=== PATIENT | male | born 1940 | race Hispanic/Latino ===

== ENCOUNTER 2018-06-26 14:38 | Emergency (ER) | payer MEDICARE, OTHER ==
[2012-01-12 12:36] VITALS: BP 181/89
[2018-06-26] MEDS ORDERED: ONDANSETRON 4 MG/2 ML VIAL ONE (16:37)
[2018-06-26] MEDS ORDERED: FENTANYL CITR 100 MCG/2 ML ONE (16:37)
[2018-06-26 16:52] LABS: Absolute Lymphocytes (CBC) 1.4 K/uL (0.7-4.9); Absolute Monocytes 0.8 K/uL (0.1-1.3); Basophils % 0.5 % (0-1.3); Eosinophils % 1.8 % (0-4.4); Hematocrit 45.2 % (39.6-49.0); Lymphocytes % 13.7 % (15.3-44.8); MPV 10.4 fL (7.6-11.3); Monocytes % 7.8 % (3.3-12.3); RBC Red Blood Cell Count 4.82 M/uL (4.33-5.43)
[2018-06-26 17:23] LABS: Blood Morphology Comment NOT SEEN (NOT SEEN); Platelet Estimate ADEQ; Urine White Blood Cell Casts OK
[2018-06-26 18:21] LABS: C-Reactive Protein 6.75 mg/L (<3.00); Magnesium 2.3 mg/dL (1.8-2.4); Potassium 3.5 mmol/L (3.5-5.1)
--- NOTE | 2018-06-26 18:54 | RAD REPORT ---
EXAM DESCRIPTION: CT - CTFBWCON CLINICAL HISTORY: right lower jaw pain COMPARISON: Head Brain Wo Cont dated 06/06/2016; Head Brain Wo Cont dated 01/07/2016 TECHNIQUE: Axial 2 mm thick images of the face were obtained with sagittal and coronal reconstructio n images. All CT scans are performed using dose optimization technique as appropriate and may include automated exposure control or mA/KV adjustment according to patient size. FINDINGS: No acute facial bone fracture is seen.The mandible is intact. The globes and orbital contents are grossly unremarkable.The paranasal sinuses and mastoids are clear . Atherosclerosis of both carotid bulbs noted. No pathologic post-contrast enhancement detected. IMPRESSION: Acute process is not identified.
[2018-06-26] MEDS ORDERED: KETOROLAC 30 MG/ML INJ ONE (19:00)
[2018-06-26] MEDS ORDERED: TRAMADOL HCL 50 MG TAB ONE (19:22)
[2018-06-26] MEDS ORDERED: CARBAMAZEPINE 200 MG TAB ONE (19:32)
--- NOTE | 2018-06-26 19:44 | ER ---
Nurse's Notes [facility] Name: Frank Loo Age: 77 yrs Sex: Male : 1940 Arrival Date: 06/26/2018 Time: 14:42 Bed 23 Private MD: Diagnosis: Trigeminal neuralgia-Right Presentation: 06/26 14:59 Presenting complaint: Patient states: cultural link: Nepalese: i have pain on my R chin, hj R side of my face area; it started 3 days ago; denies discharges on the R ear; denies fever and chills; pain is 10/10; hx of trigeminal neuralgia;. Transition of care: patient was not received from another setting of care. Onset of symptoms was June 26, 2018. Risk Assessment: Do you want to hurt yourself or someone else? Patient reports no desire to harm self or others. Initial Sepsis Screen: Does the patient meet any 2 criteria? No. Patient's initial sepsis screen is negative. Does the patient have a suspected source of infection? No. Patient's initial sepsis screen is negative. Care prior to arrival: None. 14:59 Method Of Arrival: Ambulatory 14:59 Acuity: ANISH 4 hj Triage Assessment: 15:04 General: Appears in no apparent distress. uncomfortable, Behavior is calm, cooperative, hj appropriate for age. Pain: Complains of pain in right cheek and right jaw. Historical: - Allergies: 15:03 No Known Allergies; hj - Home Meds: 15:51 allopurinol 100 mg Oral tab 1 tab once daily [Active]; clopidogrel 75 mg Oral tab 1 tab tw2 once daily [Active]; tamsulosin 0.4 mg Oral cp24 1 cap once daily [Active]; losartan 50 mg Oral tab 1 tab 2 times per day [Active]; - PMHx: 15:03 Arthritis; Hypertension; hj - PSHx: 15:03 Unable to obtain; hj - Immunization history:: Adult Immunizations not up to date. - Social history:: Smoking status: Patient/guardian denies using tobacco, Patient/guardian denies using alcohol. - Ebola Screening: : Patient negative for fever greater than or equal to 101.5 degrees Fahrenheit, and additional compatible Ebola Virus Disease symptoms Patient denies exposure to infectious person Patient denies travel to an Ebola-affected area in the 21 days before illness onset. Screenin:04 Abuse screen: Denies threats or abuse. Denies injuries from another. Nutritional hj screening: No deficits noted. Tuberculosis screening: No symptoms or risk factors identified. Fall Risk Assessment: 15:53 Reassessment: pt reports having right ear pain and jaw pain, was diagnosed with tw2 trigeminal neuralgia from his dentist, he says the pain is getting worse. General: Appears in no apparent distress. well groomed, Behavior is calm, cooperative, appropriate for age. Pain: Complains of pain in face and right jaw and right cheek. Neuro: Level of Consciousness is awake, alert, obeys commands, Oriented to person, place, time, situation. Cardiovascular: Denies chest pain, shortness of breath, Capillary refill < 3 seconds Patient's skin is warm and dry. Respiratory: Airway is patent Respiratory effort is even, unlabored, Respiratory pattern is regular, symmetrical. GI: No signs and/or symptoms were reported involving the gastrointestinal system. : No signs and/or symptoms were reported regarding the genitourinary system. EENT: Reports pain in right cheek, right ear and right jaw. Derm: No signs and/or symptoms reported regarding the dermatologic system. Musculoskeletal: Range of motion: intact in all extremities. 16:21 Reassessment: Patient appears in no apparent distress at this time. No changes from tw2 previously documented assessment. Patient and/or family updated on plan of care and expected duration. Pain level reassessed. Patient is alert, oriented x 3, equal unlabored respirations, skin warm/dry/pink. provider at bedside at this time. 17:24 Reassessment: Patient appears in no apparent distress at this time. No changes from tw2 previously documented assessment. Patient and/or family updated on plan of care and expected duration. Pain level reassessed. Patient is alert, oriented x 3, equal unlabored respirations, skin warm/dry/pink. 18:08 Reassessment: Patient appears in no apparent distress at this time. Patient and/or tw2 family updated on plan of care and expected duration. Pain level reassessed. Patient is alert, oriented x 3, equal unlabored respirations, skin warm/dry/pink. Patient states feeling better. 18:45 Reassessment: Patient appears in no apparent distress at this time. No changes from tw2 previously documented assessment. Patient and/or family updated on plan of care and expected duration. Pain level reassessed. Patient is alert, oriented x 3, equal unlabored respirations, skin warm/dry/pink. pt states the pain is back, provider notified. 19:00 General: Appears in no apparent distress. Behavior is calm, cooperative, appropriate ea for age. Pain: Complains of pain in right ear and right jaw and right cheek. Neuro: Level of Consciousness is awake, alert, obeys commands, Oriented to person, place, time, situation. Cardiovascular: Patient's skin is warm and dry. Respiratory: Airway is patent Respiratory effort is even, unlabored, Respiratory pattern is regular, symmetrical. GI: No signs and/or symptoms were reported involving the gastrointestinal system. : No signs and/or symptoms were reported regarding the genitourinary system. Derm: No signs and/or symptoms reported regarding the dermatologic system. Musculoskeletal: Circulation, motion, and sensation intact. 20:00 Reassessment: Patient and/or family updated on plan of care and expected duration. Pain ea level reassessed. Patient is alert, oriented x 3, equal unlabored respirations, skin warm/dry/pink. Discharge instructions given to patient, verbalized the understanding of instruction Patient states symptoms have improved. Vital Signs: 15:04 BP 142 / 75; Pulse 66; Resp 18; Temp 100.6(O); Pulse Ox 98% on R/A; Weight 65.77 kg; hj Height 5 ft. 7 in. (170.18 cm); Pain 10/10; 15:54 BP 159 / 77; Pulse 55; Resp 16; Pulse Ox 99% on R/A; Pain 10/10; tw2 16:21 Temp 99(O); tw2 16:21 BP 133 / 68; Pulse 65; Resp 17; Pulse Ox 99% on R/A; Pain 7/10; tw2 17:23 BP 150 / 61; Pulse 57; Resp 17; Pulse Ox 97% on R/A; tw2 17:24 Pain 6/10; tw2 18:08 BP 153 / 68; Pulse 50; Resp 17; Pulse Ox 99% on R/A; tw2 18:43 BP 154 / 67; Pulse 54; Resp 17; Pulse Ox 98% on R/A; tw2 19:30 BP 156 / 70; Pulse 58; Resp 18; Temp 98.0; Pulse Ox 99% on R/A; ea 15:04 Body Mass Index 22.71 (65.77 kg, 170.18 cm) hj ED Course: 14:42 Patient arrived in ED. mr 15:03 Triage completed. hj 15:04 Arm band placed on right wrist. hj 15:04 Patient has correct armband on for positive identification. Placed in gown. Bed in low hj position. Call light in reach. Adult w/ patient. 15:50 Nakita Samuel RN is Primary Nurse. tw2 16:14 Jacob Wilkins PA is PHCP. cp 16:14 Rodriguez Marks MD is Attending Physician. cp 16:35 Inserted saline lock: 22 gauge in right antecubital area, using aseptic technique. tw2 Blood collected. 17:25 Radiology exam delayed due to lab results not completed at this time. (BUN/Creatinine). nj 17:25 Radiology exam delayed due to lab results not completed at this time. (BUN/Creatinine). nj 18:33 CT completed. Patient tolerated procedure well. Patient moved to CT. Patient moved back kc3 from CT. 18:34 CT Facial Bones W/ Con \T\ Mpr In Process Unspecified. EDMS 18:58 Report given to PEMA Leung. tw2 18:59 Primary Nurse role handed off by Nakita Samuel RN tw2 19:09 Xochitl Bocanegra RN is Primary Nurse. ea 19:43 Piotr Huerta MD is Referral Physician. cp 20:15 No provider procedures requiring assistance completed. IV discontinued, intact, ea bleeding controlled, No redness/swelling at site. Pressure dressing applied. Administered Medications: 16:40 Drug: Zofran 4 mg Route: IVP; Site: right antecubital; tw2 17:24 Follow up: Response: No adverse reaction tw2 16:42 Drug: fentaNYL (PF) 25 mcg Route: IVP; Site: right antecubital; tw2 17:24 Follow up: Pain 6/10 Adult; Response: No adverse reaction; Pain is decreased tw2 18:52 Drug: TORadol 30 mg Route: IVP; Site: right antecubital; tw2 19:00 Follow up: Response: No adverse reaction; Pain is decreased ea 19:18 Drug: UltRAM 50 mg Route: PO; ea 20:17 Follow up: Response: No adverse reaction; Pain is decreased ea 19:26 Drug: TEGretol 100 mg Route: PO; tl3 20:18 Follow up: Response: No adverse reaction; Pain is decreased ea Outcome: 19:44 Discharge ordered by . cp 20:15 Discharged to home ambulatory, with significant other. ea 20:15 Condition: improved 20:15 Discharge instructions given to patient, Instructed on discharge instructions, follow up and referral plans. medication usage, Demonstrated understanding of instructions, follow-up care, medications, Prescriptions given X 2. 20:18 Patient left the ED. ea Signatures: Dispatcher [employer] EDGA Desirae HigginsHay RN RN Jacob Pino PA PA cp Wise, Tara RN RN tw2 Emmett Avila Elena, RN RN Christina Hargrove3 Renetta Li RN RN tl3 Corrections: (The following items were deleted from the chart) 15:07 15:04 Pulse 66bpm; Resp 18bpm; Pulse Ox 98% RA; Temp 100.6F Oral; 65.77 kg; Height 5 hj ft. 7 in.; BMI: 22.7; Pain 10/10; hj 18:44 16:21 BP 133 / 68; Pulse 65bpm; Resp 17bpm; Pulse Ox 99% RA; tw2 tw2 18:45 18:43 Pulse 54bpm; Resp 17bpm; Pulse Ox 98% RA; tw2 tw2 18:47 18:45 Reassessment: Patient appears in no apparent distress at this time. No changes tw2 from previously documented assessment. Patient and/or family updated on plan of care and expected duration. Pain level reassessed. Patient states feeling better. tw2
--- NOTE | 2018-06-26 19:45 | EDPHYS ---
Physician Documentation [facility] Name: Frank Loo Age: 77 yrs Sex: Male : 1940 Arrival Date: 06/26/2018 Time: 14:42 Bed 23 Private MD: ED Physician Rodriguez Marks HPI: 06/26 16:35 This 77 yrs old Male presents to ER via Ambulatory with complaints of facial cp pain, Ear Pain. 16:35 The patient presents with pain. The problem is located in the right ear and right jaw. cp 16:35 Onset: The symptoms/episode began/occurred 3 day(s) ago. Duration: The symptoms are cp intermittent, with episodes lasting minutes at a time, with no pattern. Modifying factors: the symptoms are aggravated by nothing. Associated signs and symptoms: Pertinent negatives: anorexia, dysphagia, fever, inability to eat, redness in area, swelling, vomiting. Severity of symptoms: in the emergency department the symptoms are unchanged, despite home interventions. The patient has not experienced similar symptoms in the past. The patient has been recently seen by a physician: Dr. Adler maxillary/facial surgeon, in the office, yesterday, with similar presenting complaints, and apparently given a diagnosis of trigeminal neuralgia. Historical: - Allergies: 15:03 No Known Allergies; hj - Home Meds: 15:51 allopurinol 100 mg Oral tab 1 tab once daily [Active]; clopidogrel 75 mg Oral tab 1 tab tw2 once daily [Active]; tamsulosin 0.4 mg Oral cp24 1 cap once daily [Active]; losartan 50 mg Oral tab 1 tab 2 times per day [Active]; - PMHx: 15:03 Arthritis; Hypertension; hj - PSHx: 15:03 Unable to obtain; hj - Immunization history:: Adult Immunizations not up to date. - Social history:: Smoking status: Patient/guardian denies using tobacco, Patient/guardian denies using alcohol. - Ebola Screening: : Patient negative for fever greater than or equal to 101.5 degrees Fahrenheit, and additional compatible Ebola Virus Disease symptoms Patient denies exposure to infectious person Patient denies travel to an Ebola-affected area in the 21 days before illness onset. ROS: 16:40 Constitutional: Negative for fever, poor PO intake. cp 16:40 Eyes: Negative for injury, pain, redness, and discharge. cp 16:40 ENT: Positive for ear pain, right lower jaw pain, Negative for drainage from ear(s), sinus congestion, sinus pain, sore throat, dental pain, difficulty swallowing, difficulty handling secretions. 16:40 Neck: Negative for pain with movement, pain at rest, stiffness, bony tenderness. 16:40 Cardiovascular: Negative for chest pain, edema, palpitations. 16:40 Respiratory: Negative for cough, shortness of breath, wheezing. 16:40 Abdomen/GI: Negative for abdominal pain, nausea, vomiting, and diarrhea, black/tarry stool, rectal bleeding. 16:40 Skin: Negative for cellulitis, rash. 16:40 Neuro: Negative for altered mental status, dizziness, headache, syncope, weakness. 16:40 All other systems are negative. Exam: 16:45 Constitutional: The patient appears in no acute distress, alert, awake, cp non-diaphoretic, non-toxic, well developed, well nourished. 16:45 Eyes: Pupils equal round and reactive to light, extra-ocular motions intact. Lids and cp lashes normal. Conjunctiva and sclera are non-icteric and not injected. Cornea within normal limits. Periorbital areas with no swelling, redness, or edema. 16:45 Head/face: Noted is swelling, that is mild, of the right jaw, tenderness, that is moderate, of the right jaw, Sinus tenderness, is not appreciated. 16:45 ENT: External ear(s): are unremarkable, Ear canal(s): are normal, clear, TM's: bulging, is not appreciated, bilaterally, dullness, bilaterally, erythema, is not appreciated, bilaterally, Nose: is normal, Mouth: Lips: moist, Oral mucosa: pink and intact, moist, Posterior pharynx: Airway: no evidence of obstruction, patent, Tonsils: are normal in appearance, Uvula: midline, swelling, is not appreciated, erythema, is not appreciated, exudate, is not appreciated, Dental exam: abscess, is not appreciated, the patient wears dentures, in place, gum swelling, not appreciated, Voice: is normal. 16:45 Neck: ROM/movement: is normal, is supple, without pain, no range of motions limitations, no meningismus, no nuchal rigidity, Lymph nodes: no appreciated lymphadenopathy. 16:45 Chest/axilla: Inspection: normal, Palpation: is normal, no crepitus, no tenderness. 16:45 Cardiovascular: Rate: normal, Rhythm: regular. 16:45 Respiratory: the patient does not display signs of respiratory distress, Respirations: normal, no use of accessory muscles, no retractions, no splinting, no tachypnea. 16:45 Abdomen/GI: Exam negative for discomfort, distension, guarding, Inspection: abdomen appears normal. 16:45 Skin: cellulitis, is not appreciated, no rash present. 16:45 Neuro: Orientation: to person, place \T\ time. Mentation: is normal, Cerebellar function: is grossly normal, Motor: moves all fours, strength is normal, Sensation: is normal. Vital Signs: 15:04 BP 142 / 75; Pulse 66; Resp 18; Temp 100.6(O); Pulse Ox 98% on R/A; Weight 65.77 kg; hj Height 5 ft. 7 in. (170.18 cm); Pain 10/10; 15:54 BP 159 / 77; Pulse 55; Resp 16; Pulse Ox 99% on R/A; Pain 10/10; tw2 16:21 Temp 99(O); tw2 16:21 BP 133 / 68; Pulse 65; Resp 17; Pulse Ox 99% on R/A; Pain 7/10; tw2 17:23 BP 150 / 61; Pulse 57; Resp 17; Pulse Ox 97% on R/A; tw2 17:24 Pain 6/10; tw2 18:08 BP 153 / 68; Pulse 50; Resp 17; Pulse Ox 99% on R/A; tw2 18:43 BP 154 / 67; Pulse 54; Resp 17; Pulse Ox 98% on R/A; tw2 19:30 BP 156 / 70; Pulse 58; Resp 18; Temp 98.0; Pulse Ox 99% on R/A; ea 15:04 Body Mass Index 22.71 (65.77 kg, 170.18 cm) hj MDM: 16:14 Patient medically screened. cp 19:42 Data reviewed: vital signs, nurses notes, lab test result(s), radiologic studies, CT cp scan, I have discussed the patient's presentation/case with the attending Emergency Department Physician; and as a result, I will discharge patient. 06/26 16:26 Order name: CBC with Diff; Complete Time: 17:30 cp 06/26 17:30 Interpretation: Normal except: JOHNNA% 76.2; LYM% 13.7. cp 06/26 16:26 Order name: BMP; Complete Time: 18:22 cp 06/26 18:22 Interpretation: Normal except: GLUC 110; GFR 75. cp 06/26 16:26 Order name: CRP; Complete Time: 18:22 cp 06/26 16:26 Order name: ESR; Complete Time: 17:30 cp 06/26 17:30 Interpretation: Abnormal: SED 30. cp 06/26 16:26 Order name: Magnesium; Complete Time: 18:22 cp 06/26 17:09 Order name: CBC Smear Scan; Complete Time: 17:30 EDMS 06/26 16:26 Order name: IV; Complete Time: 17:23 cp 06/26 16:27 Order name: CT Facial Bones W/ Con \T\ Mpr; Complete Time: 19:02 cp Administered Medications: 16:40 Drug: Zofran 4 mg Route: IVP; Site: right antecubital; tw2 17:24 Follow up: Response: No adverse reaction tw2 16:42 Drug: fentaNYL (PF) 25 mcg Route: IVP; Site: right antecubital; tw2 17:24 Follow up: Pain 6/10 Adult; Response: No adverse reaction; Pain is decreased tw2 18:52 Drug: TORadol 30 mg Route: IVP; Site: right antecubital; tw2 19:00 Follow up: Response: No adverse reaction; Pain is decreased ea 19:18 Drug: UltRAM 50 mg Route: PO; ea 20:17 Follow up: Response: No adverse reaction; Pain is decreased ea 19:26 Drug: TEGretol 100 mg Route: PO; tl3 20:18 Follow up: Response: No adverse reaction; Pain is decreased ea Disposition: 06/26/18 19:44 Discharged to Home. Impression: Trigeminal neuralgia - Right. - Condition is Stable. - Discharge Instructions: Neuropathic Pain, Trigeminal Neuralgia. - Prescriptions for carbamazepine 100 mg Oral tablet extended release 12 hr - take 1 tablet by ORAL route every 12 hours As needed; 30 tablet. Ultram 50 mg Oral Tablet - take 1 tablet by ORAL route every 6 hours As needed no driving while taking medication; 20 tablet. - Medication Reconciliation Form, Thank You Letter, Antibiotic Education, Prescription Opioid Use form. - Follow up: Kenedy, Concepcion, MD; When: 2 - 3 days; Reason: Recheck today's complaints. - Problem is new. - Symptoms have improved. Addendum: 07/09/2018 07:35 Co-signature as Attending Physician, Rodriguez Marks MD I agree with the assessment and k dr plan of care. Signatures: Dispatcher [employer] EDPA Rodriguez Marks MD MD [facility] Hay Fischer RN RN Jacob Wilkins PA PA cp Nakita Samuel RN RN tw2 Xochitl Bocanegra RN RN Renetta Grijalva RN RN tl3 Corrections: (The following items were deleted from the chart) 06/26 20:18 19:44 06/26/2018 19:44 Discharged to Home. Impression: Trigeminal neuralgia - Right. ea Condition is Stable. Forms are Medication Reconciliation Form, Thank You Letter, Antibiotic Education, Prescription Opioid Use. Follow up: Piotr Huerta; When: 2 - 3 days; Reason: Recheck today's complaints. Problem is new. Symptoms have improved. cp
== END 2018-06-26 20:18 | disposition home or self-care (01) ==
LOC: ER 14:38
DX: G50.0 Trigeminal neuralgia (principal); I10 Essential (primary) hypertension
CPT/HCPCS: 36415; 70487; 76377; 80048; 83735; 85025; 85652; 86140; 96374; 96375; 99284; J2405; J3010; Q9967

== ENCOUNTER 2018-06-28 09:24 | Emergency (ER) | payer MEDICARE ==
[2018-06-28] MEDS ORDERED: ONDANSETRON 4 MG/2 ML VIAL ONE (10:20)
[2018-06-28] MEDS ORDERED: MORPHINE 4 MG/ML SYR ONE (10:20)
[2018-06-28] MEDS ORDERED: KETOROLAC 30 MG/ML INJ ONE (10:20)
--- NOTE | 2018-06-28 11:32 | EDPHYS ---
Physician Documentation [facility] Name: Frank Loo Age: 77 yrs Sex: Male : 1940 Arrival Date: 06/28/2018 Time: 09:24 Bed 13 Private MD: ED Physician Jacob Holland HPI: 06/28 10:18 This 77 yrs old Male presents to ER via EMS with complaints of facial. jr8 10:18 Onset: The symptoms/episode began/occurred acutely, 2 day(s) ago. Severity of symptoms: jr8 At their worst the symptoms were moderate in the emergency department the symptoms are unchanged. The patient has experienced a previous episode. The patient has been recently seen at the [facility] Emergency Department. Patient seen two days ago after having facial pain on right side. Patient with history of trigeminal neuralgia in past. Came back today for continuation of pain. Started on Tramadol and Carbamazepine. Historical: - Allergies: : No Known Allergies; hj - Home Meds: : allopurinol 100 mg Oral tab 1 tab once daily [Active]; clopidogrel 75 mg Oral tab 1 tab hj once daily [Active]; losartan 50 mg Oral tab 1 tab 2 times per day [Active]; tamsulosin 0.4 mg Oral cp24 1 cap once daily [Active]; - PMHx: : Arthritis; Hypertension; hj - PSHx: : Unable to obtain; hj - Immunization history:: Adult Immunizations up to date. - Social history:: Smoking status: Patient/guardian denies using tobacco, Patient/guardian denies using alcohol. - Ebola Screening: : Patient negative for fever greater than or equal to 101.5 degrees Fahrenheit, and additional compatible Ebola Virus Disease symptoms Patient denies exposure to infectious person Patient denies travel to an Ebola-affected area in the 21 days before illness onset. ROS: 10:18 Eyes: Negative for injury, pain, redness, and discharge, ENT: Negative for injury, jr8 pain, and discharge, Neck: Negative for injury, pain, and swelling, Cardiovascular: Negative for chest pain, palpitations, and edema, Respiratory: Negative for shortness of breath, cough, wheezing, and pleuritic chest pain, Abdomen/GI: Negative for abdominal pain, nausea, vomiting, diarrhea, and constipation, Back: Negative for injury and pain, MS/Extremity: Negative for injury and deformity, Skin: Negative for injury, rash, and discoloration, Neuro: Negative for headache, weakness, numbness, tingling, and seizure. Exam: 10:18 Head/Face: Normocephalic, atraumatic. Pain with light touch near jaw line Eyes: jr8 Pupils equal round and reactive to light, extra-ocular motions intact. Lids and lashes normal. Conjunctiva and sclera are non-icteric and not injected. Cornea within normal limits. Periorbital areas with no swelling, redness, or edema. ENT: Nares patent. No nasal discharge, no septal abnormalities noted. Tympanic membranes are normal and external auditory canals are clear. Oropharynx with no redness, swelling, or masses, exudates, or evidence of obstruction, uvula midline. Mucous membranes moist. Neck: Trachea midline, no thyromegaly or masses palpated, and no cervical lymphadenopathy. Supple, full range of motion without nuchal rigidity, or vertebral point tenderness. No Meningismus. Cardiovascular: Regular rate and rhythm with a normal S1 and S2. No gallops, murmurs, or rubs. Normal PMI, no JVD. No pulse deficits. Respiratory: Lungs have equal breath sounds bilaterally, clear to auscultation and percussion. No rales, rhonchi or wheezes noted. No increased work of breathing, no retractions or nasal flaring. Abdomen/GI: Soft, non-tender, with normal bowel sounds. No distension or tympany. No guarding or rebound. No evidence of tenderness throughout. Back: No spinal tenderness. No costovertebral tenderness. Full range of motion. Skin: Warm, dry with normal turgor. Normal color with no rashes, no lesions, and no evidence of cellulitis. MS/ Extremity: Pulses equal, no cyanosis. Neurovascular intact. Full, normal range of motion. Neuro: Awake and alert, GCS 15, oriented to person, place, time, and situation. Cranial nerves II-XII grossly intact. Motor strength 5/5 in all extremities. Sensory grossly intact. Cerebellar exam normal. Normal gait. Vital Signs: 09:29 BP 183 / 77; Pulse 59; Resp 18; Temp 98.1; Pulse Ox 100% on R/A; Weight 29.83 kg; hj Height 5 ft. 7 in. (170.18 cm); Pain 10/10; 10:47 BP 169 / 67; Pulse 60; Resp 18; Pulse Ox 100% on R/A; hj 11:48 BP 165 / 90; Pulse 62; Resp 18; Pulse Ox 100% on R/A; hj 09:29 Body Mass Index 10.30 (29.83 kg, 170.18 cm) hj MDM: 09:28 Patient medically screened. jr8 10:18 Data reviewed: vital signs, nurses notes, old medical records, CT face and labs done 48 jr8 hours ago with no acute finding and as a result, I will discharge patient. Data interpreted: Pulse oximetry: on room air is 100 %. Interpretation: normal. Counseling: I had a detailed discussion with the patient and/or guardian regarding: the historical points, exam findings, and any diagnostic results supporting the discharge/admit diagnosis, the need for outpatient follow up, a neurologist, to return to the emergency department if symptoms worsen or persist or if there are any questions or concerns that arise at home. 11:30 Differential Diagnosis Trigeminal Neuralgia, dental infection, Otitis media, shingles, jr8 Temporal mandibular joint syndrome, Temporal arteritis. Response to treatment: the patient's symptoms have mildly improved after treatment. 06/28 10:02 Order name: IV; Complete Time: 10:37 jr8 Administered Medications: 10:36 Drug: Zofran 4 mg Route: IVP; Site: left hand; hj 11:41 Follow up: Response: No adverse reaction; Nausea is decreased hj 10:37 Drug: TORadol 30 mg Route: IVP; Site: left hand; hj 11:41 Follow up: Response: No adverse reaction; Pain is decreased hj 10:37 Drug: morphine 4 mg Route: IVP; Site: left antecubital; hj 11:41 Follow up: Response: No adverse reaction; Pain is decreased hj 11:41 Drug: Baclofen 10 mg Route: PO; hj 11:41 Follow up: Response: No adverse reaction; Pain is decreased hj Disposition: 06/29 07:06 Co-signature as Attending Physician, Jacob Holland MD I agree with the assessment and tricia plan of care. Disposition: 06/28/18 11:32 Discharged to Home. Impression: Trigeminal neuralgia. - Condition is Stable. - Discharge Instructions: Neuropathic Pain, Trigeminal Neuralgia. - Prescriptions for Baclofen 10 mg Oral Tablet - take 1 tablet by ORAL route 3 times per day for 3 days then go to 20 mg TID; 40 tablet. Carbamazepine 200 mg Oral Tablet - take 1 tablet by ORAL route every 12 hours for 3 days then two tabs in the AM and on tab in the PM; 60 tablet. - Medication Reconciliation Form, Thank You Letter, Antibiotic Education, Prescription Opioid Use form. - Follow up: Piotr Huerta MD; When: 2 - 3 days; Reason: Recheck today's complaints, Continuance of care, Re-evaluation by your physician. - Problem is new. - Symptoms have improved. Signatures: Jacob Holland MD MD cha Roszak, Josh, PA PA jr8 Hay Fischer RN RN hj Corrections: (The following items were deleted from the chart) 06/28 12:10 11:32 06/28/2018 11:32 Discharged to Home. Impression: Trigeminal neuralgia. Condition hj is Stable. Prescriptions for Baclofen 10 mg Oral Tablet - take 1 tablet by ORAL route 3 times per day for 3 days then go to 20 mg TID; 20 tablet. and Forms are Medication Reconciliation Form, Thank You Letter, Antibiotic Education, Prescription Opioid Use. Follow up: Piotr Huerta; When: 2 - 3 days; Reason: Recheck today's complaints, Continuance of care, Re-evaluation by your physician. Problem is new. Symptoms have improved. jr8
--- NOTE | 2018-06-28 11:32 | ER ---
Nurse's Notes [facility] Name: Frank Loo Age: 77 yrs Sex: Male : 1940 Arrival Date: 06/28/2018 Time: 09:24 Bed 13 Private MD: Diagnosis: Trigeminal neuralgia Presentation: 06/28 09:25 Presenting complaint: Patient states: i was here last Friday for this R side facial hj pain and was Rx with tramadol and carbamazepine, now the pain is till there and its not going away;. Transition of care: patient was not received from another setting of care. Onset of symptoms was June 28, 2018. Risk Assessment: Do you want to hurt yourself or someone else? Patient reports no desire to harm self or others. Initial Sepsis Screen: Does the patient meet any 2 criteria? No. Patient's initial sepsis screen is negative. Does the patient have a suspected source of infection? No. Patient's initial sepsis screen is negative. Care prior to arrival: None. 09:25 Method Of Arrival: EMS: [facility] 09:25 Acuity: ANISH 4 hj Triage Assessment: :28 General: Appears in no apparent distress. uncomfortable, Behavior is calm, cooperative, hj appropriate for age. Pain: Complains of pain in right cheek, right ear, right congregational and right jaw. Historical: - Allergies: : No Known Allergies; hj - Home Meds: : allopurinol 100 mg Oral tab 1 tab once daily [Active]; clopidogrel 75 mg Oral tab 1 tab hj once daily [Active]; losartan 50 mg Oral tab 1 tab 2 times per day [Active]; tamsulosin 0.4 mg Oral cp24 1 cap once daily [Active]; - PMHx: : Arthritis; Hypertension; hj - PSHx: : Unable to obtain; hj - Immunization history:: Adult Immunizations up to date. - Social history:: Smoking status: Patient/guardian denies using tobacco, Patient/guardian denies using alcohol. - Ebola Screening: : Patient negative for fever greater than or equal to 101.5 degrees Fahrenheit, and additional compatible Ebola Virus Disease symptoms Patient denies exposure to infectious person Patient denies travel to an Ebola-affected area in the 21 days before illness onset. Screenin:28 Abuse screen: Denies threats or abuse. Denies injuries from another. Nutritional hj screening: No deficits noted. Tuberculosis screening: No symptoms or risk factors identified. Fall Risk None identified. Assessment: 09:57 Reassessment: see triage for assessment;. hj 11:47 Reassessment: awaiting for network support technician to interpret in georgian;. Reassessment: Patient hj and/or family updated on plan of care and expected duration. Pain level reassessed. Patient is alert, oriented x 3, equal unlabored respirations, skin warm/dry/pink. Patient states feeling better. Patient states symptoms have improved. Vital Signs: 09:29 BP 183 / 77; Pulse 59; Resp 18; Temp 98.1; Pulse Ox 100% on R/A; Weight 29.83 kg; hj Height 5 ft. 7 in. (170.18 cm); Pain 10/10; 10:47 BP 169 / 67; Pulse 60; Resp 18; Pulse Ox 100% on R/A; hj 11:48 BP 165 / 90; Pulse 62; Resp 18; Pulse Ox 100% on R/A; hj 09:29 Body Mass Index 10.30 (29.83 kg, 170.18 cm) ED Course: 09:24 Patient arrived in ED. hj 09:26 Triage completed. hj 09:28 Aiden Kamara PA is PHCP. jr8 09:28 Jacob Holland MD is Attending Physician. jr8 09:28 Arm band placed on left wrist. hj 09:28 Patient has correct armband on for positive identification. Bed in low position. Call hj light in reach. Side rails up X 1. 09:43 Hay Fischer RN is Primary Nurse. hj 10:36 Inserted saline lock: 24 gauge in left hand, using aseptic technique. hj 11:32 Piotr Huerta MD is Referral Physician. jr8 12:09 No provider procedures requiring assistance completed. IV discontinued, intact, hj bleeding controlled, No redness/swelling at site. Pressure dressing applied. Administered Medications: 10:36 Drug: Zofran 4 mg Route: IVP; Site: left hand; hj 11:41 Follow up: Response: No adverse reaction; Nausea is decreased hj 10:37 Drug: TORadol 30 mg Route: IVP; Site: left hand; hj 11:41 Follow up: Response: No adverse reaction; Pain is decreased hj 10:37 Drug: morphine 4 mg Route: IVP; Site: left antecubital; hj 11:41 Follow up: Response: No adverse reaction; Pain is decreased hj 11:41 Drug: Baclofen 10 mg Route: PO; hj 11:41 Follow up: Response: No adverse reaction; Pain is decreased hj Outcome: 11:32 Discharge ordered by MD. alex 12:09 Discharged to home ambulatory, with family. hj 12:09 Condition: stable 12:09 Discharge instructions given to patient, family, Instructed on discharge instructions, follow up and referral plans. medication usage, in georgian with network support technician Duran Demonstrated understanding of instructions, follow-up care, medications, in georgian with sonography technician Duran Prescriptions given X 2. 12:10 Patient left the ED. Signatures: Aiden Kamara PA PA jr8 Hay Fischer, RN RN Corrections: (The following items were deleted from the chart) 09:30 09:29 BP 183 / 77; Pulse 59bpm; Resp 18bpm; Pulse Ox 100% RA; Temp 98.1F; Pain 10/10; hjhj
[2018-06-28] MEDS ORDERED: BACLOFEN 10 MG TAB PO SCH (12:00)
[2018-06-28 12:15] VITALS: TEMP 98.1; O2SAT 100
[2018-06-28 12:18] VITALS: BP 165/90
== END 2018-06-28 12:10 | disposition home or self-care (01) ==
LOC: ER 09:24
DX: G50.0 Trigeminal neuralgia (principal); I10 Essential (primary) hypertension; M19.90 Unspecified osteoarthritis, unspecified site; Z79.899 Other long term (current) drug therapy
CPT/HCPCS: 99284; J2405

== ENCOUNTER 2018-07-31 14:32 | Emergency (ER) | payer MEDICARE ==
--- OUTSIDE RECORDS SUMMARY | 2018-07-31 14:34 | XMS REPORT ---
:1940 [facility] Address [address] [place] [address] Dr. Whitney [address] [place] [id number] Care Team Providers Name Role Phone Unavailable Unavailable Unavailable Problems This patient has no known problems. Allergies, Adverse Reactions, Alerts This patient has no known allergies or adverse reactions. Medications This patient has no known medications.
[2018-07-31] MEDS ORDERED: FENTANYL CITR 100 MCG/2 ML ONE (17:25)
[2018-07-31] MEDS ORDERED: KETOROLAC 30 MG/ML INJ ONE (17:25)
[2018-07-31] MEDS ORDERED: ONDANSETRON 4 MG/2 ML VIAL ONE (17:25)
--- NOTE | 2018-07-31 17:56 | EDPHYS ---
Physician Documentation [facility] Name: Frank Loo Age: 77 yrs Sex: Male : 1940 Arrival Date: 07/31/2018 Time: 14:35 Bed 24 Private MD: None, None ED Physician Rodriguez Marks HPI: 07/31 17:00 This 77 yrs old Male presents to ER via Ambulatory with complaints of Right pm1 sided Facial Pain. 17:00 The patient or guardian reports pain. Patient seen here 4 days ago and 2 days ago for pm1 the same complaint. Was diagnosed with trigeminal neuralgia and has been seen by Dr. Huerta and given a prescription for Lyrica. Patient reports no improvement in pain with Lyrica. Historical: - Allergies: 14:44 No Known Allergies; sv - PMHx: 14:44 Arthritis; Hypertension; sv - PSHx: 14:44 Hernia repair; sv - Immunization history:: Flu vaccine is up to date. - Social history:: Smoking status: Patient uses tobacco products, 3-4 cigarettes per day.. - Ebola Screening: : No symptoms or risks identified at this time. ROS: 17:00 Constitutional: Negative for fever, chills, and weight loss, Eyes: Negative for injury, pm1 pain, redness, and discharge, ENT: Negative for injury, pain, and discharge, Neck: Negative for injury, pain, and swelling, Cardiovascular: Negative for chest pain, palpitations, and edema, Respiratory: Negative for shortness of breath, cough, wheezing, and pleuritic chest pain, Abdomen/GI: Negative for abdominal pain, nausea, vomiting, diarrhea, and constipation, Back: Negative for injury and pain, : Negative for injury, bleeding, discharge, and swelling, MS/Extremity: Negative for injury and deformity, Skin: Negative for injury, rash, and discoloration, Neuro: Negative for headache, weakness, numbness, tingling, and seizure. Exam: 17:00 Constitutional: This is a well developed, well nourished patient who is awake, alert, pm1 and in no acute distress. 17:00 Eyes: Pupils equal round and reactive to light, extra-ocular motions intact. Lids and lashes normal. Conjunctiva and sclera are non-icteric and not injected. Cornea within normal limits. Periorbital areas with no swelling, redness, or edema. ENT: Nares patent. No nasal discharge, no septal abnormalities noted. Tympanic membranes are normal and external auditory canals are clear. Oropharynx with no redness, swelling, or masses, exudates, or evidence of obstruction, uvula midline. Mucous membranes moist. Neck: Trachea midline, no thyromegaly or masses palpated, and no cervical lymphadenopathy. Supple, full range of motion without nuchal rigidity, or vertebral point tenderness. No Meningismus. Chest/axilla: Normal chest wall appearance and motion. Nontender with no deformity. No lesions are appreciated. Cardiovascular: Regular rate and rhythm with a normal S1 and S2. No gallops, murmurs, or rubs. Normal PMI, no JVD. No pulse deficits. Respiratory: Lungs have equal breath sounds bilaterally, clear to auscultation and percussion. No rales, rhonchi or wheezes noted. No increased work of breathing, no retractions or nasal flaring. Abdomen/GI: Soft, non-tender, with normal bowel sounds. No distension or tympany. No guarding or rebound. No evidence of tenderness throughout. Back: No spinal tenderness. No costovertebral tenderness. Full range of motion. Skin: Warm, dry with normal turgor. Normal color with no rashes, no lesions, and no evidence of cellulitis. MS/ Extremity: Pulses equal, no cyanosis. Neurovascular intact. Full, normal range of motion. 17:00 Head/face: Noted is no obvious of injury or deformity except tenderness, that is moderate, of the right cheek. 17:00 Neuro: Orientation: is normal, Motor: is normal, moves all fours, Gait: is steady, at a normal pace, without difficulty. Vital Signs: 14:44 BP 152 / 82; Pulse 69; Resp 20; Temp 98.7; Pulse Ox 99% ; Weight 68.04 kg; sv 16:30 BP 161 / 79; Pulse 59; Resp 18; Pulse Ox 99% on R/A; ca1 17:30 BP 165 / 76; Pulse 60; Resp 18; Pulse Ox 100% on R/A; ca1 18:09 BP 152 / 84; Pulse 62; Resp 18; Pulse Ox 100% on R/A; ca1 MDM: 16:44 Patient medically screened. pm1 17:55 Data reviewed: vital signs. Data interpreted: Pulse oximetry: on room air is 100 %. pm1 Interpretation: normal. Counseling: I had a detailed discussion with the patient and/or guardian regarding: the historical points, exam findings, and any diagnostic results supporting the discharge/admit diagnosis, the need for outpatient follow up, for definitive care, a neurologist, a neurosurgeon, to return to the emergency department if symptoms worsen or persist or if there are any questions or concerns that arise at home. 07/31 16:54 Order name: IV Saline Lock; Complete Time: 17:03 pm1 Administered Medications: 07:15 Drug: TORadol 15 mg Route: IVP; Site: left antecubital; ca1 17:49 Follow up: Response: No adverse reaction; Pain is unchanged, physician notified ca1 17:05 Drug: Zofran 4 mg Route: IVP; Site: left antecubital; ca1 17:47 Follow up: Response: No adverse reaction; Nausea is decreased ca1 17:09 Drug: fentaNYL (PF) 25 mcg Route: IVP; Site: left antecubital; ca1 17:48 Follow up: Response: No adverse reaction; Pain is unchanged, physician notified ca1 17:49 Drug: fentaNYL (PF) 50 mcg Route: IVP; Site: left antecubital; ca1 18:09 Follow up: Response: No adverse reaction; Pain is decreased ca1 Disposition: 07/31/18 17:55 Discharged to Home. Impression: Trigeminal neuralgia. - Condition is Stable. - Discharge Instructions: Trigeminal Neuralgia. - Prescriptions for Tylenol- Codeine #3 300-30 mg Oral Tablet - take 2 tablets by ORAL route every 6 hours As needed; 20 tablet. - Medication Reconciliation Form, Thank You Letter, Antibiotic Education, Prescription Opioid Use form. - Follow up: Emergency Department; When: As needed; Reason: Worsening of condition. Follow up: Private Physician; When: 2 - 3 days; Reason: Recheck today's complaints, Continuance of care, Re-evaluation by your physician. - Problem is new. - Symptoms have improved. Addendum: 08/03/2018 07:46 Co-signature as Attending Physician, Rodriguez Marks MD I agree with the assessment and k dr plan of care. Signatures: Sarah Ramos RN RN Rodriguez Ayala MD MD kdr Marinas, Patrick, NP RN HEMODIALYSIS CHARGE pm1 Caroline Fernando, RN RN ca1 Corrections: (The following items were deleted from the chart) 07/31 18:12 17:55 07/31/2018 17:55 Discharged to Home. Impression: Trigeminal neuralgia. Condition ca1 is Stable. Forms are Medication Reconciliation Form, Thank You Letter, Antibiotic Education, Prescription Opioid Use. Follow up: Emergency Department; When: As needed; Reason: Worsening of condition. Follow up: Private Physician; When: 2 - 3 days; Reason: Recheck today's complaints, Continuance of care, Re-evaluation by your physician. Problem is new. Symptoms have improved. pm1
--- NOTE | 2018-07-31 17:56 | ER ---
Nurse's Notes [facility] Name: Frank Loo Age: 77 yrs Sex: Male : 1940 Arrival Date: 07/31/2018 Time: 14:35 Bed 24 Private MD: None, None Diagnosis: Trigeminal neuralgia Presentation: 07/31 14:41 Presenting complaint: Patient states: right jaw pain/"feels like electricity being shot sv through my jaw" for a long time, has been seen here in the ER and prescribed Lyrica. Pt has seen the neurologist who prescribed the Lyrica, and needs to have surgery (burn the nerve). Transition of care: patient was not received from another setting of care. Onset of symptoms is unknown. Care prior to arrival: None. 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 sv 16:45 Risk Assessment: Do you want to hurt yourself or someone else? Patient reports no ca1 desire to harm self or others. Initial Sepsis Screen: Does the patient meet any 2 criteria? No. Patient's initial sepsis screen is negative. Does the patient have a suspected source of infection? No. Patient's initial sepsis screen is negative. Triage Assessment: 14:46 General: Appears in no apparent distress. uncomfortable, Behavior is cooperative, sv appropriate for age. Pain: Complains of pain in right cheek and right mandible Pain currently is 10 out of 10 on a pain scale. Neuro: Level of Consciousness is awake, alert, obeys commands, Oriented to person, place, time, situation, Gait is steady. Respiratory: Respiratory effort is even, unlabored, Respiratory pattern is regular, symmetrical. Historical: - Allergies: 14:44 No Known Allergies; sv - PMHx: 14:44 Arthritis; Hypertension; sv - PSHx: 14:44 Hernia repair; sv - Immunization history:: Flu vaccine is up to date. - Social history:: Smoking status: Patient uses tobacco products, 3-4 cigarettes per day.. - Ebola Screening: : No symptoms or risks identified at this time. Screenin:45 Abuse screen: Denies threats or abuse. Denies injuries from another. Nutritional ca1 screening: No deficits noted. Tuberculosis screening: Fall Risk None identified. Assessment: 16:45 General: Appears in no apparent distress. uncomfortable, Behavior is calm, cooperative, ca1 appropriate for age. Pain: Complains of pain in face and right mandible and right cheek Pain currently is 10 out of 10 on a pain scale. Neuro: Level of Consciousness is awake, alert, obeys commands, Oriented to person, place, time, situation. Neuro:. Cardiovascular: Heart tones S1 S2 present Capillary refill < 3 seconds Patient's skin is warm and dry. Respiratory: Airway is patent Respiratory effort is even, unlabored, Respiratory pattern is regular, symmetrical, Breath sounds are clear bilaterally. GI: No signs and/or symptoms were reported involving the gastrointestinal system. : No signs and/or symptoms were reported regarding the genitourinary system. EENT: No signs and/or symptoms were reported regarding the EENT system. Derm: Skin is intact, Skin is pink, warm \\T\\ dry. Musculoskeletal: Circulation, motion, and sensation intact. 17:41 Reassessment: Patient appears in no apparent distress at this time. Patient and/or ca1 family updated on plan of care and expected duration. Pain level reassessed. Patient is alert, oriented x 3, equal unlabored respirations, skin warm/dry/pink. 18:09 Reassessment: Patient appears in no apparent distress at this time. Patient is alert, ca1 oriented x 3, equal unlabored respirations, skin warm/dry/pink. Patient states feeling better. Vital Signs: 14:44 BP 152 / 82; Pulse 69; Resp 20; Temp 98.7; Pulse Ox 99% ; Weight 68.04 kg; sv 16:30 BP 161 / 79; Pulse 59; Resp 18; Pulse Ox 99% on R/A; ca1 17:30 BP 165 / 76; Pulse 60; Resp 18; Pulse Ox 100% on R/A; ca1 18:09 BP 152 / 84; Pulse 62; Resp 18; Pulse Ox 100% on R/A; ca1 ED Course: 14:35 Patient arrived in ED. sb2 14:35 None, None is Private Physician. sb2 14:43 Triage completed. sv 14:45 Arm band placed on Patient placed in waiting room, Patient notified of wait time. sv 16:44 Samson Moreno NP is PHCP. pm1 16:44 Rodriguez Marks MD is Attending Physician. pm1 16:45 Patient has correct armband on for positive identification. Placed in gown. Bed in low ca1 position. Call light in reach. Side rails up X 1. Pulse ox on. NIBP on. Warm blanket given. 17:03 Caroline Fernando RN is Primary Nurse. ca1 17:11 Inserted saline lock: 22 gauge in left antecubital area, using aseptic technique. lt1 18:10 No provider procedures requiring assistance completed. IV discontinued, intact, ca1 bleeding controlled, No redness/swelling at site. Pressure dressing applied. Administered Medications: 07:15 Drug: TORadol 15 mg Route: IVP; Site: left antecubital; ca1 17:49 Follow up: Response: No adverse reaction; Pain is unchanged, physician notified ca1 17:05 Drug: Zofran 4 mg Route: IVP; Site: left antecubital; ca1 17:47 Follow up: Response: No adverse reaction; Nausea is decreased ca1 17:09 Drug: fentaNYL (PF) 25 mcg Route: IVP; Site: left antecubital; ca1 17:48 Follow up: Response: No adverse reaction; Pain is unchanged, physician notified ca1 17:49 Drug: fentaNYL (PF) 50 mcg Route: IVP; Site: left antecubital; ca1 18:09 Follow up: Response: No adverse reaction; Pain is decreased ca1 Outcome: 17:55 Discharge ordered by MD. pm1 18:10 Discharged to home ambulatory, with significant other. ca1 18:10 Condition: stable 18:10 Discharge instructions given to patient, family, Instructed on discharge instructions, follow up and referral plans. medication usage, Demonstrated understanding of instructions, follow-up care, medications, Prescriptions given X 1. 18:12 Patient left the ED. ca1 Signatures: Sarah Ramos RN RN sv Samson Moreno, STAVE LOG CUT OFF SAW OPERATOR STAVE LOG CUT OFF SAW OPERATOR pm1 Estefany Vitale sb2 Caroline Fernando RN RN ca1 Kassidy Green lt1 Corrections: (The following items were deleted from the chart) 14:47 14:41 Presenting complaint: Patient states: right jaw pain for a long time, has been sv seen here in the ER and prescribed Lyrica. Pt has seen the neurologist who prescribed the Lyrica, and needs to have surgery (burn the nerve). sv
[2018-07-31 18:21] VITALS: TEMP 98.7
[2018-07-31 18:24] VITALS: O2SAT 100
[2018-07-31 18:25] VITALS: BP 152/84
== END 2018-07-31 18:12 | disposition home or self-care (01) ==
LOC: ER 14:32
DX: G50.0 Trigeminal neuralgia (principal); I10 Essential (primary) hypertension; F17.210 Nicotine dependence, cigarettes, uncomplicated
CPT/HCPCS: 96374; 96375; 99284; J2405; J3010

== ENCOUNTER 2019-06-25 03:12 | Emergency (ER) | payer MEDICARE ==
--- OUTSIDE RECORDS SUMMARY | 2019-06-25 03:14 | XMS REPORT ---
:1940 [facility] Address [address] [place] [address] Dr. Whitney [address] [place] [id number] Care Team Providers Name Role Phone Unavailable Unavailable Unavailable Problems This patient has no known problems. Allergies, Adverse Reactions, Alerts This patient has no known allergies or adverse reactions. Medications This patient has no known medications.
--- OUTSIDE RECORDS SUMMARY | 2019-06-25 03:15 | XMS REPORT | Summary of Care ---
:1940 Author Organization [facility] Address [address] [place] [address] Care Team Providers Name Role Phone Sarah Tobar Primary Care Provider Reason for Visit Reason Comments Results Son is calling about Lab results for his dad Prostate Cancer Encounter Details Date Type Department Care Team Description 02/23/2019 Telephone [facility] Radiation Bruno Morton Results (Son is calling Oncology MD Chris about Lab results for [address] his dad); Prostate [place], [place] [id number] Cancer [address] [place], [place] [phone] Allergies No Known Allergiesdocumented as of this encounter (statuses as of 02/23/2019) Medications Medication Sig Dispensed Refills Start Date End Date Status allopurinol (ZYLOPRIM) Take 100 mg by 0 Active 100 mg tablet mouth daily. amLODIPine 10 mg Take 10 mg by 0 Active tablet mouth daily. atorvastatin 20 mg Take 20 mg by 0 Active tablet mouth at bedtime. pregabalin (LYRICA) 75 75 mg daily. 0 Active mg capsule levoFLOXacin Take 1 tablet by 3 tablet 0 10/08/2018 Active (LEVAQUIN) 500 mg mouth every 24 tabletIndications: (twenty-four) Prostate cancer hours. tamsulosin 0.4 mg 24 Take 1 capsule by 30 capsule 1 12/02/2018 Active hr capsuleIndications: mouth at bedtime. Prostate cancer documented as of this encounter (statuses as of 02/23/2019) Active Problems Problem Noted Date Prostate cancer 09/30/2018 documented as of this encounter (statuses as of 02/23/2019) Social History Tobacco Use Types Packs/Day Years Used Date Current Every Day Smoker Smokeless Tobacco: Never Used Alcohol Use Drinks/Week oz/Week Comments No Sex Assigned at Date Recorded Not on file Job Start Date Occupation Industry Not on file Not on file Not on file Travel History Travel Start Travel End No recent travel history available. documented as of this encounter Last Filed Vital Signs Not on filedocumented in this encounter Plan of Treatment Date Type Specialty Care Team Description 05/12/2019 Office Visit Urology Marilee Ann, DIE KEEPER [address] [id number] Health Maintenance Due Date Last Done Comments DTaP,Tdap,and Td Vaccines (1 - Tdap) 1961 Zoster Recombinant Vaccine (SHINGRIX) (1 of 2) 1992 LUNG CANCER SCREEN: Recommended for age 55-80 with 30 + 1997 pack year history Medicare Wellness Visit 10/31/2007 PNEUMOCOCCAL VACCINES 65+ (1 of 2 - PCV13) 10/31/2007 INFLUENZA VACCINE (#1) 2019 documented as of this encounter Results Not on filedocumented in this encounter Insurance Payer Benefit Plan / Subscriber ID Effective Phone Address Type Group Dates [place] AARP MEDICARE [id number] 2018-Pres Medicare Adv HEALTHCARE - COMPLETE ent HMO MANAGED MEDICARE documented as of this encounter Advance Directives Type Date Recorded Patient Manager Hospital Explanation Advance Directives and Living Will Power of Stockroom Coordinator
--- OUTSIDE RECORDS SUMMARY | 2019-06-25 03:15 | XMS REPORT | Summary of Care ---
:1940 Author Organization [facility] Address [address] [place] [address] Care Team Providers Name Role Phone Sarah Tobar Primary Care Provider Reason for Visit Reason Comments Blood Draw Encounter Details Date Type Department Care Team Description 02/05/2019 Trim Mechanic Visit ANCILLARY LABS Bruno Morton MD [address] [facility] [id number] [place] [address] Prostate cancer [facility] Allergies No Known Allergiesdocumented as of this encounter (statuses as of 02/05/2019) Medications Medication Sig Dispensed Refills Start Date [...] as of this encounter (statuses as of 02/05/2019) Active Problems Problem Noted Date Prostate cancer 09/30/2018 documented as of this encounter (statuses as of 02/05/2019) Social History Tobacco Use Types Packs/Day Years [...] Description 05/12/2019 Office Visit Urology Marilee Ann, LIVING SUPERVISOR [address] [address] [phone] Health Maintenance Due Date Last Done Comments [...] Results Not on filedocumented in this encounter Visit Diagnoses Diagnosis Prostate cancer Malignant neoplasm of prostate documented in this encounter Insurance Payer Benefit Plan / Subscriber ID Effective Phone Address Type Group Dates [place] AARP MEDICARE [id number] 2018-Pres Medicare Adv HEALTHCARE - COMPLETE ent O MANAGED MEDICARE documented as of this encounter Advance Directives Type Date Recorded Patient Jet Blade Polisher Explanation Advance Directives and Living Will Power of Tree Girdler
--- OUTSIDE RECORDS SUMMARY | 2019-06-25 03:15 | XMS REPORT | Summary of Care ---
:1940 Author Organization [facility] Address [address] [place] [address] Care Team Providers Name Role Phone Sarah Tobar Primary Care Provider Reason for Visit Reason Comments Prostate Cancer Encounter Details Date Type Department Care Team Description 02/05/2019 Office Visit [facility] Radiation Bruno Morton Prostate cancer Oncology MD Chris (Primary Dx) [address] [id number] [place] [address] [id number] Allergies No Known Allergiesdocumented as of this encounter (statuses as of 02/06/2019) Medications Medication Sig Dispensed Refills Start Date [...] as of this encounter (statuses as of 02/06/2019) Active Problems Problem Noted Date Prostate cancer 09/30/2018 documented as of this encounter (statuses as of 02/06/2019) Social History Tobacco Use Types Packs/Day Years [...] of this encounter Last Filed Vital Signs Vital Sign Reading Time Taken Comments Blood Pressure 130/76 02/05/2019 10:18 AM CDT Pulse 58 02/05/2019 10:18 AM CDT Temperature 36.7 C (98.1 F) 02/05/2019 10:18 AM CDT Respiratory Rate 16 02/05/2019 10:18 AM CDT Oxygen Saturation 98% 02/05/2019 10:18 AM CDT Inhaled Oxygen Concentration - - Weight 68.5 kg (151 lb) 02/05/2019 10:18 AM CDT Height - - Body Mass Index 24.37 12/02/2018 10:19 AM CDT documented in this encounter Progress Notes Bruno Morton MD - 02/05/2019 10:30 AM CDT The patient was seen in clinic with the resident, Dr. Rojas. As the attending physician I evaluated the patient with the resident and formulated the plan along with the resident and agree with the plan as outlined below. Edward Hines MD - 02/05/2019 10:30 AM CDT FOLLOW UP Date: 02/05/2019 Patient Name: Frank Loo Date of : 1940 : [id number] Referring Physician: No ref. provider found PCP: Sarah Tobar Diagnosis: ICD-10-CM ICD-9-CM 1. Prostate cancer C61 185 SUMMARY: Prostate adenocarcinoma, [id number], intermediate risk, 3+4=7, 01/01 cores+, iPSA 6.2. S/p XRT (completed 12/29/18). NARRATIVE: Mr. Loo is a 78 year old male with the above diagnosis. Interval History: Patient was last seen by radiation oncology on 12/25/18 for final treatment management visit. At that time he was taking Aleve and Azo for his dysuria. He completed his radiation therapy on 12/29/18. In the interim he has not had in the appointments, labs, or imaging. Today, the patient was unaccompanied. He reports feeling well overall. See AUA below for urinary symptoms. He denies hematuria or dysuria. He denies erectile dysfunction. He reports normal bowel movements and no constipation, hematochezia or painful bowel movements. He denies bone pain. PSA results as follows: No results found for: PSA AUA In the past month, how often have you had a sensation of not emptying your bladder after you finished voiding?: 0 Not at all In the past month, how often have you had to urinate again less than two hours after you finished urinating?: 0 Not at all In the past month, how often have you found you stopped and started again several times when you urinated?: 0 Not at all In the past month, how often have you found it difficult to postpone urination? : 0 Not at all In the past month, how often have you had a weak urinary stream?: 0 Not at all In the past month, how often have you had to push or strain to begin urination? : 0 Not at all In the past month, how many times did you typically get up to urinate from the time you went to bed at night until the time you got up in the morning?: 1-1 time AUA BPH TOTAL SYMPTOM SCORE: 1 If you had to spend the rest of your life with your urinary condition the way it is now, how would you feel about that?: 0 Delighted MEDICATIONS: Current Outpatient Medications Medication Sig Dispense Refill tamsulosin 0.4 mg 24 hr capsule Take 1 capsule by mouth at bedtime. 30 capsule 1 levoFLOXacin (LEVAQUIN) 500 mg tablet Take 1 tablet by mouth every 24 ( twenty-four) hours. 3 tablet 0 pregabalin (LYRICA) 75 mg capsule 75 mg daily. amLODIPine 10 mg tablet Take 10 mg by mouth daily. atorvastatin 20 mg tablet Take 20 mg by mouth at bedtime. allopurinol (ZYLOPRIM) 100 mg tablet Take 100 mg by mouth daily. No current facility-administered medications for this visit. PHYSICAL EXAM: Vital signs: BP 130/76 (BP Location: Left arm, Patient Position: Sitting, BP CUFF SIZE: Adult Medium) | Pulse 58 | Temp 36.7 C (98.1 F) | Resp 16 | Wt 151 lb (68.5 kg) | SpO2 98% | BMI 24.37 kg/m ECO Appearance: patient alert and in no acute distress Abdomen: soft, non-tender, non-distended, no liver, spleen or abnormal masses palpated Lymphatic: non-palpable nodes in the inguinal regions Genitourinary Male: Deferred Rectal: Deferred Prostate: Deferred Musculoskeletal: No tenderness to palpation of the spine. Skin: skin color, texture and turgor are normal; no bruising, rashes or lesions noted LABORATORY STUDIES: See chronological HPI above. I have reviewed the patient's labs. See laboratory section of [facility] for details. RADIOLOGICAL FINDINGS: See chronological HPI above. I have reviewed the patient's imaging. See radiology section of [facility] for details. PATHOLOGY FINDINGS: See chronological HPI above. I have reviewed the patient's pathology reports. See pathology section of [facility] for details. ASSESSMENT: Mr. Loo is a 78 year old year-old male with Prostate adenocarcinoma, [id number] , intermediate risk, 3+4=7, 01/01 cores+, iPSA 6.2. S/p XRT (completed 12/29/18). The patient appears to be recovering well from the acute toxicity of radiation therapy. Will check PSA today. PLAN: ? Check PSA today ? 9 month follow up ? The patient will follow-up with urology as directed Future Appointments Date Time Provider Department Center 02/05/2019 11:00 AM [facility] 05/12/2019 9:00 AM [facility] Ann [facility] The patient was seen together with and discussed with attending physician, Bruno Morton MD. Edward Rojas PGY-2 Radiation Oncology Elizabeth Smith RN - 02/05/2019 10:30 AM CDTPatient awake, alert, ambulatory. Ox3 Pt here for one month follow up post XRT to prostate. Patient reports pain in right hip, mild fatigue /10. Patient AUA complete. documented in this encounter Plan of Treatment Date Type Specialty Care Team Description 05/12/2019 Office Visit Urology Marilee Ann, [facility] [address] [address] [phone] Name Type Priority Associated Diagnoses Date/Time PSA, FREE AND TOTAL LAB Routine Prostate cancer 02/05/2019 10:47 AM CDT Health Maintenance Due Date Last Done Comments [...] this encounter Visit Diagnoses Diagnosis Prostate cancer - Primary Malignant neoplasm of prostate documented in this encounter Insurance Payer Benefit Plan / Subscriber ID Effective Phone Address Type Group Dates [place] AARP MEDICARE [id number] 2018-Pres Medicare Adv HEALTHCARE - COMPLETE ent HMO MANAGED MEDICARE ([place]) [place] [address] documented as of this encounter Advance Directives Type Date Recorded Patient Property Insurance Inspector Explanation Advance Directives and Living Will Power of Statistical Programmer"
--- OUTSIDE RECORDS SUMMARY | 2019-06-25 03:15 | XMS REPORT | Summary of Care ---
:1940 Author Organization [facility] Address [address] [place] [address] Care Team Providers Name Role Phone Sarah Tobar Primary Care Provider Reason for Visit Reason Comments Prostate Cancer Encounter Details Date Type Department Care Team Description 02/05/2019 Office Visit [facility] Radiation Bruno Morton Prostate cancer Oncology MD Chris (Primary Dx) [id number] [place] [id number] Allergies No Known Allergiesdocumented as of this [...] CDT documented in this encounter Progress Notes Edward Rojas MD - 02/05/2019 10:30 AM CDT FOLLOW UP Date: 02/05/2019 Patient Name: Frank Loo Date of : 1940 : [id number] Referring Physician: No ref. provider found PCP: Sarah Tobar Diagnosis: ICD-10-CM ICD-9-CM 1. Prostate cancer C61 185 SUMMARY: Prostate adenocarcinoma, [id number], intermediate risk, 3+4=7, 01/01 cores+, iPSA 6.2. [...] the patient's labs. See laboratory section of [facility] for details. RADIOLOGICAL FINDINGS: See chronological HPI above. I have reviewed the patient's imaging. See radiology section of [facility] for details. PATHOLOGY FINDINGS: See chronological HPI above. I have reviewed the patient's pathology reports. See pathology section of [facility] for details. ASSESSMENT: Mr. Loo is a 78 year old year-old male with Prostate adenocarcinoma, [id number] , intermediate risk, 3+4=7, 01/01 cores+, iPSA 6.2. S/p XRT (completed 12/29/18). The patient appears to be recovering well from the acute toxicity of radiation therapy. Will check PSA today. PLAN: ? Check PSA today ? 9 month follow up ? The patient will follow-up with urology as directed Future Appointments Date Time Provider Department Center 02/05/2019 11:00 AM [facility] 05/12/2019 9:00 AM Marilee Ann FNP [facility] The patient was seen together with and discussed with attending physician, Bruno Morton MD. Edward Rojas PGY-2 Radiation Oncology Elizabeth simons RN - 02/05/2019 10:30 AM CDTPatient awake, alert, ambulatory. Ox3 Pt here for one month follow up post XRT to prostate. Patient reports pain in right hip, mild fatigue 3/10. Patient AUA complete. documented in this encounter Plan of Treatment Date Type Specialty Care Team Description 02/05/2019 Technical Applications Scientist Visit Phlebotomy Bruno Morton MD [id number] [place], [place] [address] Prostate cancer [facility] 05/12/2019 Office Visit Urology Marilee Ann, CINDER PIT CRANE OPERATOR [address] [id number] Name Type Priority Associated Diagnoses Date/Time PSA, [...] Address Type Group Dates [place] AARP MEDICARE [id number] 2018-Pres Medicare Adv HEALTHCARE - COMPLETE ent O MANAGED MEDICARE (Home) [place] [address] documented as of this encounter Advance Directives Type Date Recorded Patient Conveyor Operator Explanation Advance Directives and Living Will Power of Metal Tank Builder"
[2019-06-25] MEDS ORDERED: ONDANSETRON 4 MG/2 ML VIAL ONE (03:43)
[2019-06-25] MEDS ORDERED: NA CHLORIDE 0.9% 1,000 ML ONE (03:43)
[2019-06-25] MEDS ORDERED: FAMOTIDINE 20 MG/2 ML VIAL IV ONE (03:43)
[2019-06-25] MEDS ORDERED: MORPHINE 2 MG/ML SYR ONE (03:44)
[2019-06-25 04:14] LABS: Absolute Lymphocytes (CBC) 1.8 K/uL (0.7-4.9); Basophils % 0.5 % (0-1.3); Lymphocytes % 20.1 % (15.3-44.8); MPV 10.8 fL (7.6-11.3); RBC Red Blood Cell Count 4.96 M/uL (4.33-5.43)
[2019-06-25 04:37] LABS: Protime INR 1.06
[2019-06-25 04:40] LABS: ALT/SGPT 37 U/L (12-78); AST/SGOT 21 U/L (15-37); Albumin 4.1 g/dL (3.4-5.0); Alkaline Phosphatase 156 U/L (45-117); BUN Blood Urea Nitrogen 16 mg/dL (7-18); Bicarbonate 27 mmol/L (21-32); Bilirubin Direct < 0.1 mg/dL (0-0.2); Bilirubin Total 0.4 mg/dL (0.2-1.0); Glucose Level 124 mg/dL (74-106); Lipase 72 U/L (73-393); Magnesium 2.1 mg/dL (1.8-2.4); NT PRO-BNP 59 pg/mL (<450); Protein, Total 7.9 g/dL (6.4-8.2); Sodium Level 140 mmol/L (136-145); Troponin (Emerg Dept Use Only) < 0.02 ng/mL (0.0-0.045)
[2019-06-25 06:14] LABS: Urine Blood TRACE (NEG); Urine Glucose NEGATIVE (NEG); Urine Protein NEGATIVE (NEG); Urine pH 7.5 (5.0-7.0)
--- NOTE | 2019-06-25 06:44 | EKG ---
Test Date: 2019-06-25 Test Time: 03:44:55 Music Minister: KB MEASUREMENT RESULTS: Intervals: Rate: 57 [place]: 178 QRSD: 94 QT: 434 QTc: 422 [place]: P: 52 [place]: 178 QRS: 28 T: 91 INTERPRETIVE STATEMENTS: Sinus bradycardia Abnormal QRS-T angle, consider primary T wave abnormality Abnormal ECG Compared to ECG 06/07/2016 06:48:56 T-wave abnormality now present Electronically Signed On 06-25-19 06:43:24 ORDNANCE ARTIFICER by Javi Krishnan
--- NOTE | 2019-06-25 07:59 | ER ---
Nurse's Notes [facility] Name: Frank Loo Age: 78 yrs Sex: Male : 1940 Arrival Date: 06/25/2019 Time: 03:16 Bed 15 Private MD: Diagnosis: Nausea and vomiting;Essential (primary) hypertension;Gastro-esophageal reflux disease Presentation: 06/25 03:15 Presenting complaint: EMS states: patient complaint of low back pain and throwing up rr5 with headache. 03:15 Transition of care: patient was not received from another setting of care. Onset of rr5 symptoms was June 25, 2019. Risk Assessment: Do you want to hurt yourself or someone else? Patient reports no desire to harm self or others. Initial Sepsis Screen: Does the patient meet any 2 criteria? No. Patient's initial sepsis screen is negative. Does the patient have a suspected source of infection? No. Patient's initial sepsis screen is negative. Care prior to arrival: None. 03:15 Method Of Arrival: EMS: [facility] rr5 03:15 Acuity: ANISH 3 rr5 Historical: - Allergies: 03:18 No Known Allergies; rr5 - Home Meds: 03:18 allopurinol 100 mg Oral tab 1 tab once daily [Active]; amlodipine oral [Active]; rr5 Atrovent Inhl [Active]; Cyclobenzaprine Oral [Active]; losartan 50 mg Oral tab 1 tab 2 times per day [Active]; meloxicam oral oral [Active]; pregabalin Oral [Active]; tamsulosin 0.4 mg Oral cp24 1 cap once daily [Active]; - PMHx: 03:18 Arthritis; Hypertension; rr5 - PSHx: 03:18 Unable to obtain; rr5 - Immunization history:: Adult Immunizations up to date, Flu vaccine is up to date. - Social history:: Smoking status: Patient uses tobacco products, 3 sticks/day, Patient/guardian denies using alcohol, street drugs. - Ebola Screening: : Patient negative for fever greater than or equal to 101.5 degrees Fahrenheit, and additional compatible Ebola Virus Disease symptoms Patient denies exposure to infectious person Patient denies travel to an Ebola-affected area in the 21 days before illness onset. - Family history:: not pertinent. Screenin:22 Abuse screen: Denies threats or abuse. Denies injuries from another. Nutritional rr5 screening: No deficits noted. Tuberculosis screening: No symptoms or risk factors identified. Fall Risk Gait- Weak (10 pts.). Total Sinclair Fall Scale indicates No Risk (0-24 pts). Assessment: 03:50 General: Appears in no apparent distress. uncomfortable, Behavior is calm, cooperative, rr5 appropriate for age. Pain: Complains of pain in left low back and right low back Pain radiates to back Pain currently is 5 out of 10 on a pain scale. Quality of pain is described as aching, Pain began gradually, Is intermittent. Neuro: Level of Consciousness is awake, alert, obeys commands, Oriented to person, place, time, situation. Cardiovascular: Capillary refill < 3 seconds Patient's skin is warm and dry. Respiratory: Airway is patent Respiratory effort is even, unlabored, Respiratory pattern is regular, symmetrical. GI: Abdomen is round Reports nausea, vomiting. : No signs and/or symptoms were reported regarding the genitourinary system. EENT: No signs and/or symptoms were reported regarding the EENT system. Derm: Skin is intact, is healthy with good turgor, Skin temperature is warm. Musculoskeletal: Capillary refill < 3 seconds, Reports pain in back. 05:00 Reassessment: patient is in CT scan. rr5 05:15 Reassessment: Patient appears in no apparent distress at this time. Patient is alert, rr5 oriented x 3, equal unlabored respirations, skin warm/dry/pink. came back from CT scan no vomiting reported. Patient states symptoms have improved. 06:00 Reassessment: Patient appears in no apparent distress at this time. Patient is alert, rr5 oriented x 3, equal unlabored respirations, skin warm/dry/pink. awaiting for review. Patient states feeling better. Patient states symptoms have improved. Pain: Denies pain. 06:40 Reassessment: Patient appears in no apparent distress at this time. Patient is alert, rr5 oriented x 3, equal unlabored respirations, skin warm/dry/pink. no complaints made. Vital Signs: 03:18 BP 142 / 84; Pulse 60; Resp 19; Temp 97.9; Pulse Ox 100% ; Weight 72.57 kg; Height 5 rr5 ft. 1 in. (154.94 cm); Pain 5/10; 04:25 BP 148 / 70; Pulse 64; Resp 18; Pulse Ox 98% ; Pain 5/10; rr5 05:30 BP 141 / 65; Pulse 69; Resp 17; Pulse Ox 99% ; Pain 0/10; rr5 07:00 BP 154 / 79; Pulse 60; Resp 16; Temp 98; Pulse Ox 99% ; rr5 03:18 Body Mass Index 30.23 (72.57 kg, 154.94 cm) rr5 ED Course: 03:16 Patient arrived in ED. cl3 03:16 Barney Yin, PEMA is Primary Nurse. rr5 03:18 Jacob Holland MD is Attending Physician. tricia 03:18 Triage completed. rr5 03:22 Arm band placed on right wrist. rr5 03:35 Inserted saline lock: 20 gauge in right forearm, using aseptic technique. Blood rr5 collected. 03:35 No provider procedures requiring assistance completed. rr5 03:43 XRAY Chest (1 view) In Process Unspecified. EDMS 03:50 Patient has correct armband on for positive identification. Placed in gown. Bed in low rr5 position. Call light in reach. Side rails up X 1. property assessment monitor on. Pulse ox on. NIBP on. 03:50 Door closed. Warm blanket given. Head of bed elevated. rr5 04:25 Radiology exam delayed due to lab results not completed at this time. (BUN/Creatinine). kw1 05:35 CT Head Brain wo Cont In Process Unspecified. EDMS 05:35 CT Aorta for Dissection In Process Unspecified. EDMS 07:48 Kathy Rucker MD is Referral Physician. tricia 07:48 Javi Krishnan MD is Referral Physician. tricia 08:17 Troponin (emerg Dept Use Only) Sent. iw 08:17 Repeat lab(s) drawn. kj1 09:23 Patient did not have IV access during this emergency room visit. iw Administered Medications: 03:50 Drug: NS 0.9% 500 ml Route: IV; Rate: bolus; Site: left antecubital; rr5 04:25 Follow up: Response: No adverse reaction; IV Status: Completed infusion; IV Intake: rr5 500ml 03:51 Drug: Zofran 4 mg Route: IVP; Site: left antecubital; rr5 04:50 Follow up: Response: No adverse reaction rr5 03:53 Drug: Pepcid 20 mg Route: IVP; Site: left antecubital; rr5 04:55 Follow up: Response: No adverse reaction rr5 03:55 Drug: morphine 2 mg {Note: rass 0.} Route: IVP; Site: left antecubital; rr5 05:52 Follow up: Response: No adverse reaction; Pain is decreased; RASS: Alert and Calm (0) rr5 04:26 Drug: NS 0.9% 1000 ml Route: IV; Rate: 125 ml/hr; Site: right forearm; rr5 08:16 Drug: GI Cocktail without - (Maalox Suspension 30 ml, Lidocaine Liquid 2 % 15 iw ml) Route: PO; 08:16 Drug: ProTONIX 40 mg Route: IVP; Site: right forearm; iw Intake: 04:25 IV: 500ml; Total: 500ml. rr5 Outcome: 07:48 Discharge ordered by MD. clarke 09:23 Discharged to home ambulatory, with family. iw 09:23 Condition: good 09:23 Discharge instructions given to patient, family, Instructed on discharge instructions, follow up and referral plans. medication usage, Demonstrated understanding of instructions, follow-up care, medications, Prescriptions given X 2. 09:23 Patient left the ED. iw Signatures: Dispatcher [employer] EDJacob Kevin MD MD cha Williams, Irene, RN RN iw Payton Mae kw1 Barney Yin RN RN Raquel Saha1 Nirmala Lr cl3 Corrections: (The following items were deleted from the chart) 05:52 05:00 Response: No adverse reaction; Pain is decreased rr5 rr5
--- NOTE | 2019-06-25 08:00 | EDPHYS ---
Physician Documentation [facility] Name: Frank Loo Age: 78 yrs Sex: Male : 1940 Arrival Date: 06/25/2019 Time: 03:16 Bed 15 Private MD: SINDHU Physician Jacob Holland HPI: 06/25 03:35 This 78 yrs old Male presents to ER via EMS with complaints of Nausea. tricia 03:35 The patient presents to the emergency department with nausea, vomiting, abdominal pain, tricia of the right lower quadrant and left lower quadrant. Onset: The symptoms/episode began/occurred yesterday. Possible causes: unknown. The symptoms are aggravated by nothing. The symptoms are alleviated by nothing. Associated signs and symptoms: Pertinent positives: abdominal pain, nausea, vomiting. Severity of symptoms: At their worst the symptoms were mild moderate in the emergency department the symptoms are unchanged. The patient has not experienced similar symptoms in the past. Historical: - Allergies: 03:18 No Known Allergies; rr5 - Home Meds: 03:18 allopurinol 100 mg Oral tab 1 tab once daily [Active]; amlodipine oral [Active]; rr5 Atrovent Inhl [Active]; Cyclobenzaprine Oral [Active]; losartan 50 mg Oral tab 1 tab 2 times per day [Active]; meloxicam oral oral [Active]; pregabalin Oral [Active]; tamsulosin 0.4 mg Oral cp24 1 cap once daily [Active]; - PMHx: 03:18 Arthritis; Hypertension; rr5 - PSHx: 03:18 Unable to obtain; rr5 - Immunization history:: Adult Immunizations up to date, Flu vaccine is up to date. - Social history:: Smoking status: Patient uses tobacco products, 3 sticks/day, Patient/guardian denies using alcohol, street drugs. - Ebola Screening: : Patient negative for fever greater than or equal to 101.5 degrees Fahrenheit, and additional compatible Ebola Virus Disease symptoms Patient denies exposure to infectious person Patient denies travel to an Ebola-affected area in the 21 days before illness onset. - Family history:: not pertinent. ROS: 03:35 Constitutional: Negative for fever, chills, and weight loss, Eyes: Negative for injury, tricia pain, redness, and discharge, ENT: Negative for injury, pain, and discharge, Neck: Negative for injury, pain, and swelling, Respiratory: Negative for shortness of breath, cough, wheezing, and pleuritic chest pain, Back: Negative for injury and pain, : Negative for injury, bleeding, discharge, and swelling, MS/Extremity: Negative for injury and deformity, Skin: Negative for injury, rash, and discoloration, Neuro: Negative for headache, weakness, numbness, tingling, and seizure. 03:35 Cardiovascular: Positive for chest pain. 03:35 Abdomen/GI: Positive for abdominal pain, nausea and vomiting. 03:35 Back: Positive for pain at rest, pain with movement, of the lumbar area. Exam: 03:37 Constitutional: This is a well developed, well nourished patient who is awake, alert, tricia and in no acute distress. Head/Face: Normocephalic, atraumatic. Eyes: Pupils equal round and reactive to light, extra-ocular motions intact. Lids and lashes normal. Conjunctiva and sclera are non-icteric and not injected. Cornea within normal limits. Periorbital areas with no swelling, redness, or edema. ENT: Nares patent. No nasal discharge, no septal abnormalities noted. Tympanic membranes are normal and external auditory canals are clear. Oropharynx with no redness, swelling, or masses, exudates, or evidence of obstruction, uvula midline. Mucous membranes moist. Neck: Trachea midline, no thyromegaly or masses palpated, and no cervical lymphadenopathy. Supple, full range of motion without nuchal rigidity, or vertebral point tenderness. No Meningismus. Chest/axilla: Normal chest wall appearance and motion. Nontender with no deformity. No lesions are appreciated. Cardiovascular: Regular rate and rhythm with a normal S1 and S2. No gallops, murmurs, or rubs. Normal PMI, no JVD. No pulse deficits. Respiratory: Lungs have equal breath sounds bilaterally, clear to auscultation and percussion. No rales, rhonchi or wheezes noted. No increased work of breathing, no retractions or nasal flaring. Back: No spinal tenderness. No costovertebral tenderness. Full range of motion. Male : Normal genitalia with no discharge or lesions. Skin: Warm, dry with normal turgor. Normal color with no rashes, no lesions, and no evidence of cellulitis. MS/ Extremity: Pulses equal, no cyanosis. Neurovascular intact. Full, normal range of motion. Neuro: Awake and alert, GCS 15, oriented to person, place, time, and situation. Cranial nerves II-XII grossly intact. Motor strength 5/5 in all extremities. Sensory grossly intact. Cerebellar exam normal. Normal gait. Psych: Awake, alert, with orientation to person, place and time. Behavior, mood, and affect are within normal limits. 03:37 Abdomen/GI: Inspection: distension, Bowel sounds: normal, Palpation: mild abdominal tenderness, Liver: no appreciated palpable abnormalities, Hernia: not appreciated. Vital Signs: 03:18 BP 142 / 84; Pulse 60; Resp 19; Temp 97.9; Pulse Ox 100% ; Weight 72.57 kg; Height 5 rr5 ft. 1 in. (154.94 cm); Pain 5/10; 04:25 BP 148 / 70; Pulse 64; Resp 18; Pulse Ox 98% ; Pain 5/10; rr5 05:30 BP 141 / 65; Pulse 69; Resp 17; Pulse Ox 99% ; Pain 0/10; rr5 07:00 BP 154 / 79; Pulse 60; Resp 16; Temp 98; Pulse Ox 99% ; rr5 03:18 Body Mass Index 30.23 (72.57 kg, 154.94 cm) rr5 MDM: 03:18 Patient medically screened. [facility] 03:38 Data reviewed: vital signs, nurses notes, lab test result(s), EKG, radiologic studies, [facility] CT scan, plain films. 06/25 03:32 Order name: Basic Metabolic Panel; Complete Time: 04:44 [facility] 06/25 03:32 Order name: CBC with Diff; Complete Time: 04:44 [facility] 06/25 03:32 Order name: LFT's; Complete Time: 04:44 [facility] 06/25 03:32 Order name: Magnesium; Complete Time: 04:44 [facility] 06/25 03:32 Order name: NT PRO-BNP; Complete Time: 04:44 [facility] 06/25 03:32 Order name: PT-INR; Complete Time: 04:44 [facility] 06/25 03:32 Order name: Troponin (emerg Dept Use Only); Complete Time: 04:44 [facility] 06/25 03:32 Order name: XRAY Chest (1 view) [facility] 06/25 03:32 Order name: Lipase; Complete Time: 04:44 tricia 06/25 03:34 Order name: CT Head Brain wo Cont tricia 06/25 05:28 Order name: Troponin (emerg Dept Use Only); Complete Time: 07:27 tricia 06/25 06:11 Order name: Urine Dipstick--Ancillary (enter results) ar5 06/25 06:15 Order name: Urine Dipstick-Ancillary; Complete Time: 07:18 EDMS 06/25 07:46 Order name: Troponin (emerg Dept Use Only) tricia 06/25 03:32 Order name: EKG; Complete Time: 03:33 tricia 06/25 03:32 Order name: Cardiac monitoring; Complete Time: 04:19 tricia 06/25 03:32 Order name: EKG - Nurse/Tech; Complete Time: 04:19 tricia 06/25 03:32 Order name: IV Saline Lock; Complete Time: 04:19 tricia 06/25 03:32 Order name: Labs collected and sent; Complete Time: 04:19 tricia 06/25 03:32 Order name: O2 Per Protocol; Complete Time: 04:19 tricia 06/25 03:32 Order name: O2 Sat Monitoring; Complete Time: 04:20 tricia 06/25 03:34 Order name: CT Aorta for Dissection [facility] 06/25 07:46 Order name: EKG; Complete Time: 07:47 tricia 06/25 03:32 Order name: Urine Dipstick-Ancillary (obtain specimen); Complete Time: 05:31 tricia 06/25 07:46 Order name: EKG - Nurse/Tech; Complete Time: 08:03 tricia Administered Medications: 03:50 Drug: NS 0.9% 500 ml Route: IV; Rate: bolus; Site: left antecubital; rr5 04:25 Follow up: Response: No adverse reaction; IV Status: Completed infusion; IV Intake: rr5 500ml 03:51 Drug: Zofran 4 mg Route: IVP; Site: left antecubital; rr5 04:50 Follow up: Response: No adverse reaction rr5 03:53 Drug: Pepcid 20 mg Route: IVP; Site: left antecubital; rr5 04:55 Follow up: Response: No adverse reaction rr5 03:55 Drug: morphine 2 mg {Note: rass 0.} Route: IVP; Site: left antecubital; rr5 05:52 Follow up: Response: No adverse reaction; Pain is decreased; RASS: Alert and Calm (0) rr5 04:26 Drug: NS 0.9% 1000 ml Route: IV; Rate: 125 ml/hr; Site: right forearm; rr5 08:16 Drug: GI Cocktail without - (Maalox Suspension 30 ml, Lidocaine Liquid 2 % 15 iw ml) Route: PO; 08:16 Drug: ProTONIX 40 mg Route: IVP; Site: right forearm; iw Disposition: 06/25/19 07:48 Discharged to Home. Impression: Nausea and vomiting, Essential (primary) hypertension, Gastro-esophageal reflux disease. - Condition is Stable. - Discharge Instructions: Hypertension, Nausea and Vomiting, Adult, Hypertension, [id number], How to Take Your Blood Pressure, [id number], Aspirin and Your Heart, Managing Your Hypertension. - Prescriptions for Carafate 1 gram Oral Tablet - take 1 tablet by ORAL route 4 times per day take on an empty stomach, beginning on waking and last dose at bedtime; 100 tablet. Protonix 40 mg Oral Tablet - take 1 tablet by ORAL route once daily; 30 tablet. - Medication Reconciliation Form, Thank You Letter, Antibiotic Education, Prescription Opioid Use, SBAR form form. - Follow up: Private Physician; When: 2 - 3 days; Reason: Recheck today's complaints, Continuance of care, Re-evaluation by your physician. Follow up: Kathy Rucker MD; When: 2 - 3 days; Reason: Recheck today's complaints, Re-evaluation by your physician. Follow up: Javi Krishnan MD; When: 2 - 3 days; Reason: Recheck today's complaints, Re-evaluation by your physician. - Problem is new. - Symptoms have improved. Signatures: Dispatcher [employer] Jacob Leyva MD MD cha Williams, Irene, RN RN iw Barney Yin RN RN rr5 Corrections: (The following items were deleted from the chart) 07:48 07:48 06/25/2019 07:48 Discharged to Home. Impression: Nausea and vomiting; Essential tricia (primary) hypertension; Gastro-esophageal reflux disease. Condition is Stable. Forms are SBAR form, Medication Reconciliation Form, Thank You Letter, Antibiotic Education, Prescription Opioid Use. Follow up: Private Physician; When: 2 - 3 days; Reason: Recheck today's complaints, Continuance of care, Re-evaluation by your physician. Problem is new. Symptoms have improved. [facility] 09:23 07:48 06/25/2019 07:48 Discharged to Home. Impression: Nausea and vomiting; Essential iw (primary) hypertension; Gastro-esophageal reflux disease. Condition is Stable. Forms are SBAR form, Medication Reconciliation Form, Thank You Letter, Antibiotic Education, Prescription Opioid Use. Follow up: Private Physician; When: 2 - 3 days; Reason: Recheck today's complaints, Continuance of care, Re-evaluation by your physician. Follow up: Kathy Rucker; When: 2 - 3 days; Reason: Recheck today's complaints, Re-evaluation by your physician. Follow up: Javi Krishnan; When: 2 - 3 days; Reason: Recheck today's complaints, Re-evaluation by your physician. Problem is new. Symptoms have improved. [facility]
[2019-06-25] MEDS ORDERED: PANTOPRAZOLE 40 MG INJ ONE (08:09)
[2019-06-25] MEDS ORDERED: LIDOCAINE VISCOUS 2% SOLN 15 ML UDC ONE (08:09)
[2019-06-25] MEDS ORDERED: MAGNE/ALUM HYDROXD 30 ML UCUP ONE (08:09)
[2019-06-25 09:33] VITALS: O2SAT 99
--- NOTE | 2019-06-25 09:33 | RAD REPORT ---
EXAM DESCRIPTION: RAD - Chest Single View - 06/25/2019 3:45 am CLINICAL HISTORY: Chest pain, abdominal distention COMPARISON: May 2016 TECHNIQUE: AP portable chest image was obtained 0341 hours . FINDINGS: Lungs are clear. Heart and vasculature are normal. No measurable pleural effusion and no p neumothorax. No acute bony abnormality seen. No acute aortic findings suspected. IMPRESSION: No acute cardiopulmonary process. No significant interval change.
[2019-06-25 09:34] VITALS: BP 154/79; TEMP 98
--- NOTE | 2019-06-25 11:04 | RAD REPORT ---
EXAM DESCRIPTION: CT - Head Brain Wo Cont - 06/25/2019 6:12 am CLINICAL HISTORY: The patient is 78 years old and is Male; HEADACHE TECHNIQUE: Axial computed tomography images of the head/brain without intravenous contrast. Sagitt al and coronal reformatted images were created and reviewed. This CT exam was performed using one o r more of the following dose reduction techniques: automated exposure control, adjustment of the mA and/or kV according to patient size, and/or use of iterative reconstruction technique. COMPARISON: No relevant prior studies available. FINDINGS: BRAIN: Bifrontal atrophy is present. The allen-white matter differentiation is preserved . No hemorrhage. No significant white matter disease. No edema. No extra-axial fluid collections. VENTRICLES: Unremarkable. No ventriculomegaly. BONES/JOINTS: No acute fracture. SOFT TISSUES: Unremarkable. SINUSES: Unremarkable as visualized. No acute sinusitis. MASTOID AIR CELLS: Unremarkable as visualized. No mastoid effusion. ORBITS: Unremarkable as visualized. IMPRESSION: No acute intracranial findings. Electronically signed by: Dorinda Birmingham MD 06/25/2019 5:52 AM PICKLER HELPER Due to temporary technical issues with the PACS/Fluency reporting system, reports are being signed by the in house radiologist as a courtesy to ensure prompt reporting. The interpreting radiologist is f ully responsible for the content of the report.
--- NOTE | 2019-06-25 11:05 | RAD REPORT ---
EXAM DESCRIPTION: CT - Angio Aorta For Dissection - 06/25/2019 6:11 am CLINICAL HISTORY: The patient is 78 years old and is Male; Abdominal distention;Dissection;SOB TECHNIQUE: Axial computed tomographic angiography images of the chest, abdomen and pelvis with intra venous contrast. Sagittal and coronal reformatted images were created and reviewed. This CT exam was performed using one or more of the following dose reduction techniques: automated exposure cont rol, adjustment of the mA and/or kV according to patient size, and/or use of iterative reconstruction technique. MIP reconstructed images were created and reviewed. COMPARISON: No relevant prior studies available. FINDINGS: ARTIFACTS: The exam is suboptimal secondary to motion artifact. VASCULATURE: AORTA: Irregularity of the wall of the aorta is present with associated minimal mural thrombus a nd atherosclerotic plaque throughout. No aortic aneurysm. No dissection. PULMONARY ARTERIES: Unremarkable as visualized. No pulmonary embolism is identified. GREAT VESSELS OF AORTIC ARCH: No acute findings. No dissection. No arterial occlusion or sig nificant stenosis. CELIAC TRUNK AND MESENTERIC ARTERIES: No acute findings. No occlusion or significant stenosis. RENAL ARTERIES: No acute findings. No occlusion or significant stenosis. ILIAC ARTERIES: A short segment of the left internal iliac artery is occluded with reconstitutio n distally. CHEST: LUNGS: Minimal dependent densities in the lung bases are present. PLEURAL SPACE: Unremarkable. No significant effusion. No pneumothorax. HEART: Unremarkable. No cardiomegaly. No significant pericardial effusion. MEDIASTINUM: A small hiatal hernia is present. ABDOMEN: LIVER: A 4.0 x 3.4 cm hyperattenuating lesion within the right hepatic lobe is present. The live r is otherwise unremarkable. GALLBLADDER AND BILE DUCTS: Unremarkable. No calcified stones. No ductal dilation. PANCREAS: Unremarkable. No ductal dilation. No mass. SPLEEN: Unremarkable. No splenomegaly. ADRENALS: Unremarkable. No mass. KIDNEYS AND URETERS: Bilateral renal cysts are present, the largest on the right measures approx imately 3.4 cm. The kidneys enhance symmetrically. No obstructing renal or ureteral calculus is seen. No hydronephrosis. No solid mass. STOMACH AND BOWEL: The stomach is well distended with fluid and air. The small bowel is normal i n caliber. A moderate amount stool is present throughout colon. There is no mucosal thickening or tanya dence of bowel obstruction. PELVIS: APPENDIX: The appendix is normal in caliber without surrounding inflammation. BLADDER: Unremarkable. No mass. REPRODUCTIVE: Radiotherapy beads are present within the prostate. CHEST, ABDOMEN and PELVIS: INTRAPERITONEAL SPACE: Unremarkable. No significant fluid collection. No free air. BONES/JOINTS: No acute fracture. No dislocation. SOFT TISSUES: Evidence of a right inguinal hernia repair is noted. LYMPH NODES: Unremarkable. No enlarged lymph nodes. IMPRESSION: 1. No evidence of aortic aneurysm or dissection. 2. Hyperattenuating mass within the right hepatic lobe. This is incompletely evaluated. A nonemerge nt hepatic protocol CT or MRI is recommended for further evaluation. 3. 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 Th e appearance is favored to be chronic. Electronically signed by: Dorinda Birmingham MD 06/25/2019 6:03 AM LEVER OPERATOR Due to temporary technical issues with the PACS/Fluency reporting system, reports are being signed by the in house radiologist as a courtesy to ensure prompt reporting. The interpreting radiologist is f ully responsible for the content of the report.
--- NOTE | 2019-06-29 16:46 | EKG ---
Test Date: 2018-06-25 Test Time: 07:51:01 Press Operator Automatic: EDE MEASUREMENT RESULTS: Intervals: Rate: 57 CT: 194 QRSD: 90 QT: 438 QTc: 426 [place]: P: 63 CT: 194 QRS: 50 T: 89 INTERPRETIVE STATEMENTS: Sinus bradycardia Otherwise normal ECG Cardioserver Error - Incorrect date on EKG This EKG was performed on 06-25-2019 Compared to ECG 06/07/2016 06:48:56 No significant changes Electronically Signed On 06-29-19 16:41:52 HOURLY ASSOCIATE by Javi Krishnan
== END 2019-06-25 09:23 | disposition home or self-care (01) ==
LOC: ER 03:12
DX: K21.9 Gastro-esophageal reflux disease without esophagitis (principal); I10 Essential (primary) hypertension; Z72.0 Tobacco use
CPT/HCPCS: 96361; 93005 ×2; 85025; 80048; 36415; 83735; 85610; 80076; 81003; 84484 ×3; 83690; 83880; 70450; 71275; 74175; 71045; 96375; 96374; 99285; Q9967; C9113; J2270; J7030; J2405

== ENCOUNTER 2019-12-02 11:05 | Emergency (ER) | payer MEDICARE ==
[2019-12-02] MEDS ORDERED: KETOROLAC 30 MG/ML INJ ONE (11:29)
--- NOTE | 2019-12-02 11:32 | EDPHYS ---
Physician Documentation [facility] Name: Frank Loo Age: 79 yrs Sex: Male : 1940 Arrival Date: 12/02/2019 Time: 11:07 Bed 8 Private MD: ED Physician Rodriguez Marks HPI: 12/01 11:26 This 79 yrs old Male presents to ER via EMS with complaints of right facial kb pain. 11:26 Pt has history of trigeminal neuralgia. Takes lyrica for this pain and sees Dr Deanna bull for management. Pain was severe this morning, he took a lyrica at 1030. Called 911 for severe pain. States the pain got better in route. Now -09/30. Has appt scheduled to follow up with Dr Huerta. . Severity of symptoms: At their worst the symptoms were severe in the emergency department the symptoms have improved moderately. The patient has experienced similar episodes in the past, chronically. The patient has not recently seen a physician. Historical: - Allergies: 11:11 No Known Allergies; em - Home Meds: 11:11 allopurinol 100 mg Oral tab 1 tab once daily [Active]; amlodipine oral [Active]; em Atrovent Inhl [Active]; Cyclobenzaprine Oral [Active]; losartan 50 mg Oral tab 1 tab 2 times per day [Active]; meloxicam Oral [Active]; tamsulosin 0.4 mg Oral cp24 1 cap once daily [Active]; pregabalin Oral [Active]; - PMHx: 11:11 Hypertension; Arthritis; em - Immunization history:: Adult Immunizations up to date. - Social history:: Smoking status: Patient denies any tobacco usage or history of. ROS: 11:25 Constitutional: Negative for fever, chills, and weight loss, ENT: Negative for injury, kb pain, and discharge, Neck: Negative for injury, pain, and swelling, Cardiovascular: Negative for chest pain, palpitations, and edema, Respiratory: Negative for shortness of breath, cough, wheezing, and pleuritic chest pain, Abdomen/GI: Negative for abdominal pain, nausea, vomiting, diarrhea, and constipation, Back: Negative for injury and pain, MS/Extremity: Negative for injury and deformity, Skin: Negative for injury, rash, and discoloration, Neuro: Negative for headache, weakness, numbness, tingling, and seizure. Exam: 11:25 Constitutional: This is a well developed, well nourished patient who is awake, alert, kb and in no acute distress. Head/Face: Normocephalic, atraumatic. ENT: Nares patent. No nasal discharge, no septal abnormalities noted. Tympanic membranes are normal and external auditory canals are clear. Oropharynx with no redness, swelling, or masses, exudates, or evidence of obstruction, uvula midline. Mucous membranes moist. Neck: Trachea midline, no thyromegaly or masses palpated, and no cervical lymphadenopathy. Supple, full range of motion without nuchal rigidity, or vertebral point tenderness. No Meningismus. Chest/axilla: Normal chest wall appearance and motion. Nontender with no deformity. No lesions are appreciated. Cardiovascular: Regular rate and rhythm with a normal S1 and S2. No gallops, murmurs, or rubs. Normal PMI, no JVD. No pulse deficits. Respiratory: Lungs have equal breath sounds bilaterally, clear to auscultation and percussion. No rales, rhonchi or wheezes noted. No increased work of breathing, no retractions or nasal flaring. Abdomen/GI: Soft, non-tender, with normal bowel sounds. No distension or tympany. No guarding or rebound. No evidence of tenderness throughout. Skin: Warm, dry with normal turgor. Normal color with no rashes, no lesions, and no evidence of cellulitis. MS/ Extremity: Pulses equal, no cyanosis. Neurovascular intact. Full, normal range of motion. Neuro: Awake and alert, GCS 15, oriented to person, place, time, and situation. Cranial nerves II-XII grossly intact. Motor strength 5/5 in all extremities. Sensory grossly intact. Cerebellar exam normal. Normal gait. Vital Signs: 11:07 BP 157 / 81; Pulse 70; Resp 18; Temp 97.8; Pulse Ox 100% on R/A; Pain 4/10; em MDM: 11:14 Patient medically screened. kb 11:26 Data reviewed: vital signs, nurses notes. Data interpreted: Pulse oximetry: on room air kb is 100 %. Interpretation: normal. Counseling: I had a detailed discussion with the patient and/or guardian regarding: the historical points, exam findings, and any diagnostic results supporting the discharge/admit diagnosis, the need for outpatient follow up, a neurologist, to return to the emergency department if symptoms worsen or persist or if there are any questions or concerns that arise at home. Administered Medications: 11:27 Drug: TORadol 30 mg Route: IM; Site: right deltoid; em 11:39 Follow up: Response: No adverse reaction em Disposition: 11:54 Co-signature as Attending Physician, Rodriguez Marks MD I agree with the assessment and kdr plan of care. Disposition: 12/02/19 11:31 Discharged to Home. Impression: Trigeminal neuralgia. - Condition is Stable. - Discharge Instructions: Trigeminal Neuralgia. - Medication Reconciliation Form, Thank You Letter, Antibiotic Education, Prescription Opioid Use form. - Follow up: Emergency Department; When: As needed; Reason: Worsening of condition. Follow up: Private Physician; When: 2 - 3 days; Reason: Recheck today's complaints, Continuance of care, Re-evaluation by your physician. Signatures: Venita Hwang, WALL WORKER-C WALL WORKER-Rodriguez Unger MD MD kdr Reed Gipson RN RN em Corrections: (The following items were deleted from the chart) 11:40 11:31 12/02/2019 11:31 Discharged to Home. Impression: Trigeminal neuralgia. Condition em is Stable. Forms are Medication Reconciliation Form, Thank You Letter, Antibiotic Education, Prescription Opioid Use. Follow up: Emergency Department; When: As needed; Reason: Worsening of condition. Follow up: Private Physician; When: 2 - 3 days; Reason: Recheck today's complaints, Continuance of care, Re-evaluation by your physician. kb
--- NOTE | 2019-12-02 11:32 | ER ---
Nurse's Notes [facility] Name: Frank Loo Age: 79 yrs Sex: Male : 1940 Arrival Date: 12/02/2019 Time: 11:07 Bed 8 Private MD: Diagnosis: Trigeminal neuralgia Presentation: 12/01 11:07 Chief complaint: EMS states: called out for a right sided facial pain, started em yesterday, was unable to get a hold of neurologist, has been taking Lyrica for pain, took one pill this morning at 0230. Coronavirus screen: Proceed with normal triage. Patient denies a cough. Patient denies shortness of breath or difficulty breathing. Patient denies measured and/or subjective temperature greater than 100.4F prior to today's visit. Patient denies travel on a cruise ship or to a country the [facility] currently lists as an affected area. Patient denies contact with known and/or suspected case of COVID-19. Ebola Screen: Patient negative for fever greater than or equal to 101.5 degrees Fahrenheit, and additional compatible Ebola Virus Disease symptoms Patient denies exposure to infectious person. Patient denies travel to an Ebola-affected area in the 21 days before illness onset. No symptoms or risks identified at this time. Initial Sepsis Screen: Does the patient meet any 2 criteria? No. Patient's initial sepsis screen is negative. Does the patient have a suspected source of infection? No. Patient's initial sepsis screen is negative. Risk Assessment: Do you want to hurt yourself or someone else? Patient reports no desire to harm self or others. Onset of symptoms was December 02, 2019. 11:07 Method Of Arrival: EMS: [facility] em : Acuity: ANISH 4 em Historical: - Allergies: 11: No Known Allergies; em - Home Meds: 11:11 allopurinol 100 mg Oral tab 1 tab once daily [Active]; amlodipine oral [Active]; em Atrovent Inhl [Active]; Cyclobenzaprine Oral [Active]; losartan 50 mg Oral tab 1 tab 2 times per day [Active]; meloxicam Oral [Active]; tamsulosin 0.4 mg Oral cp24 1 cap once daily [Active]; pregabalin Oral [Active]; - PMHx: 11:11 Hypertension; Arthritis; em - Immunization history:: Adult Immunizations up to date. - Social history:: Smoking status: Patient denies any tobacco usage or history of. Screenin:12 Abuse screen: Denies threats or abuse. Nutritional screening: No deficits noted. em Tuberculosis screening: No symptoms or risk factors identified. Fall Risk None identified. Assessment: 11:07 General: Appears in no apparent distress. comfortable, Behavior is calm, cooperative, em appropriate for age, Denies fever. Pain: Complains of pain in right ear and right jaw Pain currently is 4 out of 10 on a pain scale. at worst was 10 out of 10 on a pain scale. Quality of pain is described as radiating, sharp, shooting. Neuro: Level of Consciousness is awake, alert, obeys commands, Oriented to person, place, time, situation, Appropriate for age. Cardiovascular: Capillary refill < 3 seconds Patient's skin is warm and dry. Respiratory: Airway is patent Respiratory effort is even, unlabored, Respiratory pattern is regular, symmetrical. GI: Abdomen is flat. Derm: Skin is intact, is healthy with good turgor, Skin is pink, warm \T\ dry. Musculoskeletal: Capillary refill < 3 seconds, Range of motion: intact in all extremities. Vital Signs: 11:07 BP 157 / 81; Pulse 70; Resp 18; Temp 97.8; Pulse Ox 100% on R/A; Pain 4/10; em ED Course: 11:07 Patient arrived in ED. ph 11:07 Reed Gipson, RN is Primary Nurse. em 11:10 Triage completed. em 11:11 Arm band placed on. em 11:12 Venita Hwang FNP-C is [facility]. kb 11:12 Rodriguez Marks MD is Attending Physician. kb 11:12 Patient has correct armband on for positive identification. Placed in gown. Bed in low em position. Call light in reach. 11:39 No provider procedures requiring assistance completed. Patient did not have IV access em during this emergency room visit. Administered Medications: 11:27 Drug: TORadol 30 mg Route: IM; Site: right deltoid; em 11:39 Follow up: Response: No adverse reaction em Outcome: 11:31 Discharge ordered by . kb 11:39 Discharged to home ambulatory, with family. em 11:39 Condition: good 11:39 Discharge instructions given to patient, family, Instructed on discharge instructions, follow up and referral plans. Demonstrated understanding of instructions, follow-up care. 11:40 Patient left the ED. em Signatures: Venita Hwang FNP-C FNP-Ckb Munoz, Edgar RN RN em Gina Richmond RN RN ph Corrections: (The following items were deleted from the chart) 11:13 11:07 Chief complaint: EMS states: called out for a right sided facial pain, started em yesterday, was unable to get a hold of neurologist, has been taking Lyrica for pain, took one pill this morning at 0230 em
--- OUTSIDE RECORDS SUMMARY | 2019-12-02 11:41 | XMS REPORT | Summary of Care ---
:1940 Author Organization [facility] - Health Address [address] [place] [id number] Care Team Providers Name Role Phone Eileen Tobar Primary Care Provider Encounter Details Date Type Department Care Team Description 09/14/2019 Orders Only [facility] Doctor Unassigned, No [address] [facility] [place] [address] [address] [place] [address] Allergies No Known Allergiesdocumented as of this encounter (statuses as of 09/17/2019) Medications Medication Sig Dispensed Refills Start Date [...] as of this encounter (statuses as of 09/17/2019) Active Problems Problem Noted Date Prostate cancer 09/30/2018 documented as of this encounter (statuses as of 09/17/2019) Social History Tobacco Use Types Packs/Day Years [...] Treatment Date Type Specialty Care Team Description 05/01/2020 Office Visit Urology Cornel Stearns MD [address] [place] [address]. [place], [place] [phone] Health Maintenance Due Date Last Done Comments DTaP,Tdap,and Td Vaccines (1 - Tdap) 1951 Zoster Recombinant Vaccine (SHINGRIX) (1 of 2) 1992 LUNG CANCER SCREEN: Recommended for age 55-80 with 30 + 10/30/18 98 pack year history Medicare Wellness Visit 10/31/2007 PNEUMOCOCCAL VACCINES 65+ (1 of 2 - PCV13) 10/31/2007 INFLUENZA VACCINE (#1) 2019 documented as of this encounter Procedures Procedure Name Priority Date/Time Associated Diagnosis Comme nts MEDICATION CORRESPONDENCE Routine 09/14/2019 12:01 AM CDT documented in this encounter Results Not on filedocumented in this encounter Insurance Payer Benefit Plan / Subscriber ID Effective Phone Address T ype Group Dates [facility] [id number] 2019-[facility] - MEDICARE nt O MANAGED MEDICARE ADVANTAGE documented as of this encounter Advance Directives Type Date Recorded Patient Green Marketer Explanati on Advance Directives and Living Will Power of Rectifier Operator
--- OUTSIDE RECORDS SUMMARY | 2019-12-02 11:41 | XMS REPORT | Continuity of Care Document ---
:1940 Author Organization [facility] t Address [address] [place] [address] [address] [place] [address] Care Team Providers Name Role Phone Doctor Unassigned, Name Attending Clinician Unavailable Daryn HUDSON Attending Clinician Problems This patient has no known problems. Allergies, Adverse Reactions, Alerts This patient has no known allergies or adverse reactions. Medications This patient has no known medications. Procedures This patient has no known procedures. Encounters Start End Encounter Admission Attending Care Care Encounter Source Date/Time Date/Time Type Type Clinicians Facility Department ID 2019-09-14 2019-09-14 Orders Doctor DANIEL [id number] 00:00:00 00:00:00 Only Unassigned, [place] [id number] [place] [facility] [id number] 2019-07-26 2019-07-26 Office MOON Stearns [id number] 10:47:22 11:42:00 Visit Cornel Jacques [id number] [place] [id number] Profess[place] [phone] [facility] [address] Results This patient has no known results.
[2019-12-02 11:46] VITALS: BP 157/81; TEMP 97.8; O2SAT 100
== END 2019-12-02 11:40 | disposition home or self-care (01) ==
LOC: ER 11:05
DX: G50.0 Trigeminal neuralgia (principal); I10 Essential (primary) hypertension
CPT/HCPCS: 96372; 99283

== ENCOUNTER 2020-09-02 07:01 | Emergency (ER) | payer MEDICARE ==
--- OUTSIDE RECORDS SUMMARY | 2020-09-02 07:03 | XMS REPORT | Continuity of Care Document ---
:1940 Author Organization [facility] t Address [address] [place] [address] Care Team Providers Name Role Phone Doctor [...] ID 2019-09-14 2019-09-14 Orders Doctor DANIEL [id number] 00:00:00 00:00:00 Only UnassignedTOMEKA [id number] [place] [facility] [id number] 2019-07-26 2019-07-26 Office MOON Stearns [id number] 10:47:22 11:42:00 Visit Cornel Jacques [id number] [place] [id number] Professio [phone] [facility] 204 [facility] Results This patient has no known results.
[2020-09-02 08:03] LABS: Absolute Lymphocytes (CBC) 1.4 K/uL (0.7-4.9); Basophils % 0.9 % (0-1.3); Hematocrit 43.6 % (39.6-49.0); Lymphocytes % 18.3 % (15.3-44.8); MPV 10.4 fL (7.6-11.3); RBC Red Blood Cell Count 4.51 M/uL (4.33-5.43)
[2020-09-02 08:18] LABS: Albumin 3.6 g/dL (3.4-5.0); Bilirubin Total 0.4 mg/dL (0.2-1.0); Potassium 3.8 mmol/L (3.5-5.1); Protein, Total 7.5 g/dL (6.4-8.2)
[2020-09-02] MEDS ORDERED: TRAMADOL HCL 50 MG TAB ONE (08:32)
--- NOTE | 2020-09-02 09:00 | RAD REPORT ---
EXAM DESCRIPTION: CT - CTFBWCON CLINICAL HISTORY: FACIAL PAIN Pain and swelling COMPARISON: Head Brain Wo Cont dated 06/25/2019; Facial Bones W Con Mpr dated 06/26/2018 TECHNIQUE: Axial 2 mm thick images of the face were obtained with sagittal and coronal reconstructio n images. All CT scans are performed using dose optimization technique as appropriate and may include automated exposure control or mA/KV adjustment according to patient size. FINDINGS: No acute facial bone fracture is seen.The mandible is intact. The globes and orbital contents are grossly unremarkable.The paranasal sinuses and mastoids are clear . Atherosclerosis of both carotid bulbs is seen. 15 mm hyperdense rounded lesion is present the posteroinferior portion of the left parotid gland comm on possibly intraparotid lymph node and appears unchanged. No pathologic post-contrast enhancement de tected IMPRESSION: No acute abnormality is detected.
--- NOTE | 2020-09-02 09:04 | EDPHYS ---
Physician Documentation [facility] Name: Frank Loo Age: 79 yrs Sex: Male : 1940 Arrival Date: 09/02/2020 Time: 07:04 Bed 4 Private MD: ED Physician Rubio Betancourt HPI: 09/02 17:30 This 79 yrs old Male presents to ER via EMS with complaints of Facial Pain. tw4 17:30 The patient presents with facial pain. The problem is located in the right cheek, right tw4 ear and right jaw. Onset: The symptoms/episode began/occurred 1 week(s) ago, and became persistent yesterday. Duration: The symptoms are continuous, and are unchanged since they started. Modifying factors: The symptoms are alleviated by nothing, the symptoms are aggravated by chewing, cold fluids. Associated signs and symptoms: The patient has no apparent associated signs or symptoms. Severity of symptoms: At their worst the symptoms were moderate, in the emergency department the symptoms are unchanged. The patient has experienced similar episodes in the past, several times. Historical: - Allergies: 07:09 No Known Allergies; bb - Home Meds: 07:09 allopurinol 100 mg Oral tab 1 tab once daily [Active]; amlodipine oral [Active]; bb atorvastatin oral oral [Active]; losartan oral oral [Active]; tamsulosin 0.4 mg Oral cp24 1 cap once daily [Active]; - PMHx: 07:09 Arthritis; Hypertension; bb - Immunization history:: Adult Immunizations unknown. - Social history:: Smoking status: Patient reports the use of cigarette tobacco products, denies chronic smoking, but will smoke occasionally. ROS: 17:30 Constitutional: Negative for fever, chills, and weight loss, Cardiovascular: Negative tw4 for chest pain, palpitations, and edema, Respiratory: Negative for shortness of breath, cough, wheezing, and pleuritic chest pain, Abdomen/GI: Negative for abdominal pain, nausea, vomiting, diarrhea, and constipation, MS/Extremity: Negative for injury and deformity, Skin: Negative for injury, rash, and discoloration, Neuro: Negative for headache, weakness, numbness, tingling, and seizure. 17:30 ENT: Positive for Teeth pain trismus. Exam: 17:30 Constitutional: This is a well developed, well nourished patient who is awake, alert, tw4 and in no acute distress. Head/Face: Normocephalic, atraumatic. 17:30 Cardiovascular: Regular rate and rhythm with a normal S1 and S2. No gallops, murmurs, or rubs. Normal PMI, no JVD. No pulse deficits. Respiratory: Lungs have equal breath sounds bilaterally, clear to auscultation and percussion. No rales, rhonchi or wheezes noted. No increased work of breathing, no retractions or nasal flaring. Abdomen/GI: Soft, non-tender, with normal bowel sounds. No distension or tympany. No guarding or rebound. No evidence of tenderness throughout. Back: No spinal tenderness. No costovertebral tenderness. Full range of motion. MS/ Extremity: Pulses equal, no cyanosis. Neurovascular intact. Full, normal range of motion. Neuro: Awake and alert, GCS 15, oriented to person, place, time, and situation. Cranial nerves II-XII grossly intact. Motor strength 5/5 in all extremities. Sensory grossly intact. Cerebellar exam normal. Normal gait. 17:30 Head/face: Noted is tenderness, that is moderate, of the right cheek and right ear. 17:30 ENT: Mouth: Vital Signs: 07:05 BP 155 / 64; Pulse 63; Resp 16 S; Temp 98.7(O); Pulse Ox 99% on R/A; Weight 74.84 kg bb (R); Height 5 ft. 4 in. (162.56 cm) (R); Pain 10/10; 08:20 BP 143 / 70; Pulse 64; Resp 18; Pulse Ox 100% on R/A; ph 07:05 Body Mass Index 28.32 (74.84 kg, 162.56 cm) bb MDM: 09:04 Patient medically screened. tw4 17:30 Differential diagnosis: dental caries. Data reviewed: vital signs, nurses notes. Data tw4 interpreted: Pulse oximetry: Interpretation: normal. Counseling: I had a detailed discussion with the patient and/or guardian regarding: the historical points, exam findings, and any diagnostic results supporting the discharge/admit diagnosis. Special discussion: I discussed with the patient/guardian in detail that at this point there is no indication for admission to the hospital. It is understood, however, that if the symptoms persist or worsen the patient needs to return immediately for re-evaluation. 09/02 07:25 Order name: CBC with Diff tw4 09/02 07:25 Order name: CMP tw4 09/02 07:25 Order name: CT Facial Bones W/ Con \T\ Mpr; Complete Time: 09:02 tw4 09/02 07:25 Order name: CBC with Automated Diff; Complete Time: 09:02 EDMS 09/02 09:03 Interpretation: Within normal limits. tw4 09/02 07:25 Order name: Comprehensive Metabolic Panel; Complete Time: 09:02 EDMS 09/02 09:02 Interpretation: Normal except: GLUC 135; GFR 66; GLOB 3.9; ALB 3.6; ALK 167. tw4 Administered Medications: 08:18 Drug: traMADol 50 mg Route: PO; ph 09:20 Follow up: Response: No adverse reaction; Pain is decreased; RASS: Alert and Calm (0) ph 09:10 Drug: morphine 4 mg {Note: 2 mg dose given, initial RASS 0.} Route: IVP; Site: left ph antecubital; 09:20 Follow up: Response: No adverse reaction; Pain is decreased; RASS: Alert and Calm (0) ph Disposition: 09/02/20 09:04 Discharged to Home. Impression: Trigeminal neuralgia. - Condition is Stable. - Discharge Instructions: Neuropathic Pain, Trigeminal Neuralgia. - Prescriptions for Tramadol 50 mg Oral Tablet - take 1 tablet by ORAL route every 8 hours as needed; 12 tablet. - Medication Reconciliation Form, Thank You Letter, Antibiotic Education, Prescription Opioid Use form. - Follow up: Private Physician; When: Upon discharge from the Emergency Department; Reason: Recheck today's complaints, Continuance of care, Re-evaluation by your physician. - Problem is an ongoing problem. - Symptoms have improved. Signatures: Dispatcher [employer] EDIvis Fleming RN RN Gina Cano RN RN ph Rubio Betancourt MD MD tw4 Corrections: (The following items were deleted from the chart) 09:02 09:02 Normal except: GLUC 135; GFR 66. tw4 tw4 09:23 09:04 09/02/2020 09:04 Discharged to Home. Impression: Trigeminal neuralgia. Condition ph is Stable. Forms are Medication Reconciliation Form, Thank You Letter, Antibiotic Education, Prescription Opioid Use. Follow up: Private Physician; When: Upon discharge from the Emergency Department; Reason: Recheck today's complaints, Continuance of care, Re-evaluation by your physician. Problem is an ongoing problem. Symptoms have improved. tw4
--- NOTE | 2020-09-02 09:04 | ER ---
Nurse's Notes [facility] Name: Frank Loo Age: 79 yrs Sex: Male : 1940 Arrival Date: 09/02/2020 Time: 07:04 Bed 4 Private MD: Diagnosis: Trigeminal neuralgia Presentation: 09/02 07:05 Chief complaint: Patient states: he has had right sided facial pain x 3 days. bb Coronavirus screen: At this time, the client does not indicate any symptoms associated with coronavirus-19. Ebola Screen: No symptoms or risks identified at this time. Initial Sepsis Screen: Does the patient meet any 2 criteria? No. Patient's initial sepsis screen is negative. Does the patient have a suspected source of infection? No. Patient's initial sepsis screen is negative. Risk Assessment: Do you want to hurt yourself or someone else? Patient reports no desire to harm self or others. Onset of symptoms was August 30, 2020. 07:05 Method Of Arrival: EMS: [facility] 07:05 Acuity: ANISH 4 bb Historical: - Allergies: 07:09 No Known Allergies; bb - Home Meds: 07:09 allopurinol 100 mg Oral tab 1 tab once daily [Active]; amlodipine oral [Active]; bb atorvastatin oral oral [Active]; losartan oral oral [Active]; tamsulosin 0.4 mg Oral cp24 1 cap once daily [Active]; - PMHx: 07:09 Arthritis; Hypertension; bb - Immunization history:: Adult Immunizations unknown. - Social history:: Smoking status: Patient reports the use of cigarette tobacco products, denies chronic smoking, but will smoke occasionally. Screenin:39 Abuse screen: Denies threats or abuse. Denies injuries from another. Nutritional ph screening: No deficits noted. Tuberculosis screening: No symptoms or risk factors identified. Fall Risk None identified. Assessment: 08:00 General: Appears in no apparent distress. uncomfortable, slender, well groomed, ph Behavior is calm, cooperative, appropriate for age, Denies fever. Pain: Complains of pain in right cheek, right ear and right druze. Neuro: Level of Consciousness is awake, alert, obeys commands, Oriented to person, place, time, situation, Reports headache in right frontal area. Cardiovascular: Capillary refill < 3 seconds in bilateral fingers Patient's skin is warm and dry. Respiratory: Airway is compromised Respiratory effort is even, unlabored, Respiratory pattern is regular, symmetrical. GI: No signs and/or symptoms were reported involving the gastrointestinal system. EENT: Denies nasal congestion, nasal discharge. Derm: Skin is intact, is healthy with good turgor, Skin is pink, warm \T\ dry. Musculoskeletal: Circulation, motion, and sensation intact. Range of motion: intact in all extremities. 09:21 Reassessment: Patient appears in no apparent distress at this time. Patient and/or ph family updated on plan of care and expected duration. Pain level reassessed. Patient is alert, oriented x 3, equal unlabored respirations, skin warm/dry/pink. Patient states feeling better. Vital Signs: 07:05 BP 155 / 64; Pulse 63; Resp 16 S; Temp 98.7(O); Pulse Ox 99% on R/A; Weight 74.84 kg bb (R); Height 5 ft. 4 in. (162.56 cm) (R); Pain 10/10; 08:20 BP 143 / 70; Pulse 64; Resp 18; Pulse Ox 100% on R/A; ph 07:05 Body Mass Index 28.32 (74.84 kg, 162.56 cm) ED Course: 07:04 Patient arrived in ED. bb 07:08 Triage completed. bb 07:09 Rubio Betancourt MD is Attending Physician. tw4 07:09 Arm band placed on Patient placed in an exam room, on a stretcher, on pulse oximetry. bb Family accompanied patient. 07:10 Barney Yin, RN is Primary Nurse. rr5 07:11 Gina Richmond, RN is Primary Nurse. ph 07:39 Patient has correct armband on for positive identification. Placed in gown. Bed in low ph position. Call light in reach. Side rails up X 1. Pulse ox on. NIBP on. Door closed. Noise minimized. Warm blanket given. 07:45 Initial lab(s) drawn, by me, sent to lab. Inserted saline lock: 22 gauge in left ph antecubital area, using aseptic technique. Blood collected. 08:38 CT Facial Bones W/ Con \T\ Mpr In Process Unspecified. EDMS 09:21 No provider procedures requiring assistance completed. IV discontinued, intact, ph bleeding controlled, No redness/swelling at site. Pressure dressing applied. Administered Medications: 08:18 Drug: traMADol 50 mg Route: PO; ph 09:20 Follow up: Response: No adverse reaction; Pain is decreased; RASS: Alert and Calm (0) ph 09:10 Drug: morphine 4 mg {Note: 2 mg dose given, initial RASS 0.} Route: IVP; Site: left ph antecubital; 09:20 Follow up: Response: No adverse reaction; Pain is decreased; RASS: Alert and Calm (0) ph Outcome: 09:04 Discharge ordered by MD. sam 09:21 Discharged to home ambulatory, with family. ph 09:21 Condition: good 09:21 Discharge instructions given to patient, family, Instructed on discharge instructions, follow up and referral plans. medication usage, Demonstrated understanding of instructions, follow-up care, medications, Prescriptions given X 1. 09:23 Patient left the ED. ph Signatures: Dispatcher [employer] EDMS Ivis Angulo RN RN Gina Richmond RN RN Rubio Betancourt MD MD tw4 Barney Yin RN RN rr5 Corrections: (The following items were deleted from the chart) 09:20 09:10 morphine 4 mg IVP in left antecubital ph ph
[2020-09-02 09:27] VITALS: TEMP 98.7
[2020-09-02 09:28] VITALS: BP 143/70; O2SAT 100
[2020-09-02] MEDS ORDERED: MORPHINE 2 MG/ML SYR ONE (09:28)
== END 2020-09-02 09:23 | disposition home or self-care (01) ==
LOC: ER 07:01
DX: G50.0 Trigeminal neuralgia (principal); I10 Essential (primary) hypertension; F17.210 Nicotine dependence, cigarettes, uncomplicated
CPT/HCPCS: 85025; 36415; 80053; 70487; 76377; Q9967; J2270; 96374; 99284

== ENCOUNTER 2020-09-04 05:27 | Emergency (ER) | payer MEDICARE ==
--- OUTSIDE RECORDS SUMMARY | 2020-09-04 05:30 | XMS REPORT | Continuity of Care Document ---
:1940 Author Organization [facility] t Address [address] [place] [address] Care Team Providers Name Role Phone Doctor [...] ID 2019-09-14 2019-09-14 Orders Doctor DANIEL [id number] 00:00:00 00:00:00 Only Unassigned, TOMEKA [id number] Geiger [facility] [phone] [id number] 2019-07-26 2019-07-26 Office MOON Stearns [id number] 10:47:22 11:42:00 Visit Cornel Jacques [id number] Cherelle [id number] Profguadalupe [phone] [facility] [address] [facility] Results This patient has no known results.
[2020-09-04] MEDS ORDERED: MORPHINE 4 MG/ML SYR ONE (05:54)
--- NOTE | 2020-09-04 05:56 | ER ---
Nurse's Notes [facility] Name: Frank Loo Age: 79 yrs Sex: Male : 1940 Arrival Date: 09/04/2020 Time: 05:29 Bed 7 Private MD: Diagnosis: Trigeminal neuralgia Presentation: 09/04 05:30 Ebola Screen: No symptoms or risks identified at this time. ea 05:30 Chief complaint: EMS states: PT was seen here on Friday and discharged. The family jb4 called tonight because he is still having jaw pain and they want him to be admitted and to be given stronger pain medication. Coronavirus screen: Client denies travel out of the [place] in the last 14 days. 05:30 Method Of Arrival: EMS: [facility] jb4 05:31 Initial Sepsis Screen: Does the patient meet any 2 criteria? No. Patient's initial jb4 sepsis screen is negative. Does the patient have a suspected source of infection? No. Patient's initial sepsis screen is negative. Risk Assessment: Do you want to hurt yourself or someone else? Patient reports no desire to harm self or others. Onset of symptoms was September 04, 2020. Transition of care: patient was not received from another setting of care. 05:31 Acuity: ANISH 5 jb4 Triage Assessment: 05:31 General: Appears in no apparent distress. uncomfortable, Behavior is calm, cooperative, jb4 appropriate for age. Pain: Complains of pain in jaw Pain does not radiate. Pain currently is 8 out of 10 on a pain scale. EENT: Reports pain in Jaw. Neuro: Level of Consciousness is awake, alert, obeys commands, Oriented to person, place, time, situation. Cardiovascular: Patient's skin is warm and dry. Respiratory: Airway is patent Respiratory effort is even, unlabored, Respiratory pattern is regular, symmetrical. GI: No signs and/or symptoms were reported involving the gastrointestinal system. : No signs and/or symptoms were reported regarding the genitourinary system. Derm: No signs and/or symptoms reported regarding the dermatologic system. Musculoskeletal: Circulation, motion, and sensation intact. Range of motion: intact in all extremities. Historical: - Allergies: 05:32 No Known Allergies; ea - Home Meds: 05:32 tamsulosin 0.4 mg Oral cp24 1 cap once daily [Active]; losartan Oral [Active]; ea atorvastatin Oral [Active]; amlodipine oral [Active]; allopurinol 100 mg Oral tab 1 tab once daily [Active]; - PMHx: 05:32 Hypertension; Arthritis; ea - Immunization history:: Adult Immunizations up to date. - Social history:: Smoking status: Patient denies any tobacco usage or history of. Screenin:30 Abuse screen: Denies threats or abuse. Nutritional screening: No deficits noted. ea Tuberculosis screening: No symptoms or risk factors identified. Fall Risk None identified. Assessment: 05:34 General: see triage note. jb4 06:01 Reassessment: Daughter . ea Vital Signs: 05:31 BP 138 / 65; Pulse 54; Resp 16; Temp 98.6(O); Pulse Ox 97% on R/A; Weight 62.6 kg (R); jb4 Height 5 ft. 6 in. (167.64 cm) (R); Pain 8/10; 05:31 Body Mass Index 22.27 (62.60 kg, 167.64 cm) jb4 ED Course: 05:29 Patient arrived in ED. tw4 05:29 Rubio Betancourt MD is Attending Physician. tw4 05:30 Aristides Henderson, RN is Primary Nurse. jb4 05:30 Patient has correct armband on for positive identification. Call light in reach. Side ea rails up X2. Pulse ox on. NIBP on. 05:30 Arm band placed on right wrist. Patient placed in an exam room, on a stretcher, on ea pulse oximetry. 05:32 Triage completed. jb4 05:55 Piotr Huerta MD is Referral Physician. tw4 06:11 No provider procedures requiring assistance completed. Patient did not have IV access jb4 during this emergency room visit. Administered Medications: 05:42 Drug: morphine 4 mg Route: IM; Site: right deltoid; jb4 06:11 Follow up: Response: No adverse reaction jb4 06:01 Drug: Gabapentin 300 mg Route: PO; jb4 06:11 Follow up: Response: No adverse reaction jb4 Outcome: 05:56 Discharge ordered by . tw4 06:11 Discharged to home via wheelchair, with family. jb4 06:11 Condition: stable 06:11 Discharge instructions given to patient, Instructed on discharge instructions, follow up and referral plans. medication usage, Demonstrated understanding of instructions, follow-up care, medications, Prescriptions given X 2. 06:12 Patient left the ED. jb4 Signatures: Aristides Henderson RN PEMA jb4 Xochitl Bocanegra RN Rubio Morales ea, MD MD tw4 Corrections: (The following items were deleted from the chart) 05:31 05:30 Chief complaint: jaswant michaud
--- NOTE | 2020-09-04 05:56 | EDPHYS ---
Physician Documentation [facility] Name: Frank Loo Age: 79 yrs Sex: Male : 1940 Arrival Date: 09/04/2020 Time: 05:29 Bed 7 Private MD: ED Physician Rubio Betancourt HPI: 09/04 05:36 This 79 yrs old Male presents to ER via EMS with complaints of right facial tw4 pain. 05:36 The patient presents with pain. Onset: The symptoms/episode began/occurred 1 week(s) tw4 ago. Duration: The symptoms are continuous, and are unchanged since they started, and are steadily getting worse. Modifying factors: The symptoms are alleviated by nothing, the symptoms are aggravated by nothing. Associated signs and symptoms: The patient has no apparent associated signs or symptoms. Severity of symptoms: At their worst the symptoms were moderate, in the emergency department the symptoms are unchanged. The patient has experienced similar episodes in the past, a few times. The patient has been recently seen at the [facility], this week, for similar complaints labs were performed, CT scan was performed, was given a prescription for pain medications. Historical: - Allergies: 05:32 No Known Allergies; ea - Home Meds: 05:32 tamsulosin 0.4 mg Oral cp24 1 cap once daily [Active]; losartan Oral [Active]; ea atorvastatin Oral [Active]; amlodipine oral [Active]; allopurinol 100 mg Oral tab 1 tab once daily [Active]; - PMHx: 05:32 Hypertension; Arthritis; ea - Immunization history:: Adult Immunizations up to date. - Social history:: Smoking status: Patient denies any tobacco usage or history of. ROS: 05:36 Constitutional: Negative for fever, chills, and weight loss, Eyes: Negative for injury, tw4 pain, redness, and discharge. 05:36 Cardiovascular: Negative for chest pain, palpitations, and edema, Respiratory: Negative for shortness of breath, cough, wheezing, and pleuritic chest pain, Abdomen/GI: Negative for abdominal pain, nausea, vomiting, diarrhea, and constipation, Back: Negative for injury and pain, MS/Extremity: Negative for injury and deformity, Skin: Negative for injury, rash, and discoloration. 05:36 ENT: Positive for dental pain, sinus pain, Teeth pain Negative for drainage from ear(s), ear pain, foreign body sensation, Gum pain hearing loss, pulling at ears, nasal discharge, rhinorrhea, sinus congestion, sore throat, difficulty swallowing, difficulty handling secretions, hoarseness. Exam: 05:36 Constitutional: This is a well developed, well nourished patient who is awake, alert, tw4 and in no acute distress. 05:36 Neck: Trachea midline, no thyromegaly or masses palpated, and no cervical lymphadenopathy. Supple, full range of motion without nuchal rigidity, or vertebral point tenderness. No Meningismus. Chest/axilla: Normal chest wall appearance and motion. Nontender with no deformity. No lesions are appreciated. Cardiovascular: Regular rate and rhythm with a normal S1 and S2. No gallops, murmurs, or rubs. Normal PMI, no JVD. No pulse deficits. Respiratory: Lungs have equal breath sounds bilaterally, clear to auscultation and percussion. No rales, rhonchi or wheezes noted. No increased work of breathing, no retractions or nasal flaring. Abdomen/GI: Soft, non-tender, with normal bowel sounds. No distension or tympany. No guarding or rebound. No evidence of tenderness throughout. 05:36 Head/face: Noted is tenderness, that is moderate, of the right cheek and right ear. Vital Signs: 05:31 BP 138 / 65; Pulse 54; Resp 16; Temp 98.6(O); Pulse Ox 97% on R/A; Weight 62.6 kg (R); jb4 Height 5 ft. 6 in. (167.64 cm) (R); Pain 8/10; 05:31 Body Mass Index 22.27 (62.60 kg, 167.64 cm) jb4 MDM: 05:36 Data reviewed: vital signs, nurses notes. Data interpreted: Pulse oximetry: tw4 Interpretation: normal. 05:56 Patient medically screened. tw4 Administered Medications: 05:42 Drug: morphine 4 mg Route: IM; Site: right deltoid; jb4 06:11 Follow up: Response: No adverse reaction jb4 06:01 Drug: Gabapentin 300 mg Route: PO; jb4 06:11 Follow up: Response: No adverse reaction jb4 Disposition: 09/04/20 05:56 Discharged to Home. Impression: Trigeminal neuralgia. - Condition is Stable. - Discharge Instructions: Neuropathic Pain, Trigeminal Neuralgia. - Prescriptions for Lidoderm 5 % Topical adhesive patch,medicated - apply 1 patch by TRANSDERMAL route once daily; 1 box. gabapentin 300 mg Oral capsule - take 2 capsule by ORAL route 3 times per day; 30 capsule. - Medication Reconciliation Form, Thank You Letter, Antibiotic Education, Prescription Opioid Use form. - Follow up: Private Physician; When: Upon discharge from the Emergency Department; Reason: Recheck today's complaints, Continuance of care, Re-evaluation by your physician. Follow up: Piotr Huerta MD; When: Upon discharge from the Emergency Department; Reason: Recheck today's complaints, Continuance of care, Re-evaluation by your physician. - Problem is an ongoing problem. - Symptoms have improved. Signatures: Aristides Henderson RN RN jb4 Xochitl Bocanegra RN RN ea Wadley, Terrence, MD MD tw4 Corrections: (The following items were deleted from the chart) 06:12 05:56 09/04/2020 05:56 Discharged to Home. Impression: Trigeminal neuralgia. Condition jb4 is Stable. Forms are Medication Reconciliation Form, Thank You Letter, Antibiotic Education, Prescription Opioid Use. Follow up: Private Physician; When: Upon discharge from the Emergency Department; Reason: Recheck today's complaints, Continuance of care, Re-evaluation by your physician. Follow up: Piotr Huerta; When: Upon discharge from the Emergency Department; Reason: Recheck today's complaints, Continuance of care, Re-evaluation by your physician. Problem is an ongoing problem. Symptoms have improved. tw4
[2020-09-04] MEDS ORDERED: GABAPENTIN 300 MG CAP ONE (06:15)
[2020-09-04 19:31] VITALS: BP 138/65; TEMP 98.6; O2SAT 97
== END 2020-09-04 06:12 | disposition home or self-care (01) ==
LOC: ER 05:27
DX: G50.0 Trigeminal neuralgia (principal); I10 Essential (primary) hypertension; M19.90 Unspecified osteoarthritis, unspecified site
CPT/HCPCS: 96372; 99284

== ENCOUNTER 2021-10-26 08:43 | Emergency (ER) | payer OTHER ==
--- OUTSIDE RECORDS SUMMARY | 2021-10-26 08:46 | XMS REPORT | Continuity of Care Document ---
:1940 Author Organization [facility] t Address [address] [place] [address] Care Team Providers Name Role Phone Eileen Tobar Primary Care Physician MAURI WILDE Attending Clinician Unavailable Daryn HUDSON Attending Clinician DARYN Attending Clinician Unavailable Doctor Unassigned, Name Attending Clinician Unavailable Raju_P Attending Clinician Unavailable DARYN Admitting Clinician Unavailable Alisia_P Admitting Clinician Unavailable Payers Payer Name Policy Type Policy Number Effective Date Expiration Date S ource MEDICARE B-[place]: [id number] 2007 [employer] 00:00:00 Problems Condition Condition Condition Status Onset Resolution Last Treating Co mments Source Name Details Category Date Date Treatment Clinician Date Prostate Prostate Disease Active Unive rs cancer cancer 4-10 ity of 00:00: [address] Allergies, Adverse Reactions, Alerts Allergy Allergy Status Severity Reaction(s) Onset Inactive Treating Comm ents Source Name Type Date Date Clinician NO KNOWN Drug Active Univers ALLERGIE Class ity of S [facility] Social History Social Habit Start Date Stop Date Quantity Comments Source Exposure to Not sure University of SARS-CoV-2 [facility] (event) Branch Alcohol intake 2021-06-25 2021-06-25 Current University of 00:00:00 00:00:00 non-drinker of [facility] alcohol Branch (finding) Tobacco use and 2018-05-07 2018-05-07 Never used Universit y of exposure 00:00:00 00:00:00 [facility] Sex Assigned [birth year] Universit y of 00:00:00 00:00:00 [facility] Smoking Status Start Date Stop Date Source Current every day smoker 2018-05-07 00:00:00 Uni versity of [facility] Medications Ordered Filled Start Stop Current Ordering Indication Dosage Frequency Signature Comments Components Source Medication Medication Date Date Medication? Clinician (SIG) Name Name allopurinol 2018-06 Yes 100mg Take 100 U nivers (ZYLOPRIM) 2-17 mg by ity of 100 mg 08:35: mouth [place] tablet 11 daily. Medical Branch amLODIPine 2018-06 Yes 10mg Take 10 mg U nivers 10 mg 2-17 by mouth ity of tablet 08:35: daily. [address] atorvastati 2018-06 Yes 20mg Take 20 mg Univers n 20 mg 2-17 by mouth ity of tablet 08:35: at [place] [address] bedtime. Medical Branch pregabalin 2018-06 Yes 75mg 75 mg Univer s (LYRICA) 75 2-17 daily. ity of mg capsule 08:35: [address] allopurinol 2018-06 Yes 100mg Take 100 U nivers (ZYLOPRIM) 2-17 mg by ity of 100 mg 08:35: mouth [place] tablet 11 daily. Medical Branch amLODIPine 2018-06 Yes 10mg Take 10 mg U nivers 10 mg 2-17 by mouth ity of tablet 08:35: daily. [address] atorvastati 2018-06 Yes 20mg Take 20 mg Univers n 20 mg 2-17 by mouth ity of tablet 08:35: at [place] [address] bedtime. Medical Branch pregabalin 2018-06 Yes 75mg 75 mg Univer s (LYRICA) 75 2-17 daily. ity of mg capsule 08:35: [address] Branch allopurinol 2018-06 Yes 100mg Take 100 U nivers (ZYLOPRIM) 2-17 mg by ity of 100 mg 08:35: mouth [place] tablet 11 daily. Medical Branch amLODIPine 2018-06 Yes 10mg Take 10 mg U nivers 10 mg 2-17 by mouth ity of tablet 08:35: daily. [address] atorvastati 2018-06 Yes 20mg Take 20 mg Univers n 20 mg 2-17 by mouth ity of tablet 08:35: at [place] [address] bedtime. Medical Branch pregabalin 2018-06 Yes 75mg 75 mg Univer s (LYRICA) 75 2-17 daily. ity of mg capsule 08:35: [place] [address] Medical Branch allopurinol 2018-06 Yes 100mg Take 100 U nivers (ZYLOPRIM) 2-17 mg by ity of 100 mg 08:35: mouth [place] tablet 11 daily. Medical Branch amLODIPine 2018-06 Yes 10mg Take 10 mg U nivers 10 mg 2-17 by mouth ity of tablet 08:35: daily. [place] [address] Medical Branch atorvastati 2018-06 Yes 20mg Take 20 mg Univers n 20 mg 2-17 by mouth ity of tablet 08:35: at [place] [address] bedtime. Medical Branch pregabalin 2018-06 Yes 75mg 75 mg Univer s (LYRICA) 75 2-17 daily. ity of mg capsule 08:35: [place] [address] Medical Branch allopurinol 2018-06 Yes 100mg Take 100 U nivers (ZYLOPRIM) 2-17 mg by ity of 100 mg 08:35: mouth [place] tablet 11 daily. Medical Branch amLODIPine 2018-06 Yes 10mg Take 10 mg U nivers 10 mg 2-17 by mouth ity of tablet 08:35: daily. [place] [address] Medical Branch atorvastati 2018-06 Yes 20mg Take 20 mg Univers n 20 mg 2-17 by mouth ity of tablet 08:35: at [place] [address] bedtime. Medical Branch pregabalin 2018-06 Yes 75mg 75 mg Univer s (LYRICA) 75 2-17 daily. ity of mg capsule 08:35: [place] [address] Medical Branch tamsulosin 2018-0 Yes [id number] .4mg Take 1 Univers 0.4 mg 24 6-12 capsule by ity of hr capsule 00:00: mouth at [place] 00 bedtime. Medical Branch tamsulosin 0 Yes [id number] .4mg Take 1 Univers 0.4 mg 24 6-12 capsule by ity of hr capsule 00:00: mouth at [place] 00 bedtime. Medical Branch tamsulosin 0 Yes [id number] .4mg Take 1 Univers 0.4 mg 24 6-12 capsule by ity of hr capsule 00:00: mouth at [place] 00 bedtime. Medical Branch tamsulosin 0 Yes [id number] .4mg Take 1 Univers 0.4 mg 24 6-12 capsule by ity of hr capsule 00:00: mouth at [place] 00 bedtime. Medical Branch tamsulosin 2018-0 Yes [id number] .4mg Take 1 Univers 0.4 mg 24 6-12 capsule by ity of hr capsule 00:00: mouth [place] 00 bedtime. Medical Branch levoFLOXaci 2018- Yes [id number] 500mg Take 1 Univers n 4-18 tablet by ity of (LEVAQUIN) 00:00: mouth [place] 500 mg 00 every 24 Medical tablet (twenty-fo Branch ur) hours. levoFLOXaci Yes [id number] 500mg Take 1 Univers n 4-18 tablet by ity of (LEVAQUIN) 00:00: mouth [place] 500 mg 00 every 24 Medical tablet (twenty-fo Branch ur) hours. levoFLOXaci Yes [id number] 500mg Take 1 Univers n 4-18 tablet by ity of (LEVAQUIN) 00:00: mouth [place] 500 mg 00 every 24 Medical tablet (twenty-fo Branch ur) hours. levoFLOXaci Yes [id number] 500mg Take 1 Univers n 4-18 tablet by ity of (LEVAQUIN) 00:00: mouth [place] 500 mg 00 every 24 Medical tablet (twenty-fo Branch ur) hours. levoFLOXaci Yes [id number] 500mg Take 1 Univers n 4-18 tablet by ity of (LEVAQUIN) 00:00: mouth [place] 500 mg 00 every 24 Medical tablet (twenty-fo Branch ur) hours. Vital Signs Vital Name Observation Time Observation Value Comments Source Systolic blood 2021-06-25 21:42:00 128 mm[Hg] [facility] Diastolic blood 2021-06-25 21:42:00 77 mm[Hg] [facility] Heart rate 2021-06-25 21:42:00 80 /min [facility] Body temperature 2021-06-25 21:42:00 36.83 Rachelle [facility] weight 2021-06-25 21:42:00 79.379 kg [facility] BMI 2021-06-25 21:42:00 31.00 kg/m2 [facility] Procedures Procedure Date / Time Performed Performing Clinician [facility] e CONSENT/REFUSAL FOR 2021-07-12 20:55:51 Doctor Unassigned, No [facility] DIAGNOSIS AND Name Medical Branch TREATMENT ASSIGNMENT OF BENEFITS 2021-07-12 20:53:34 Doctor Unassigned, No [facility] Name Medical Branch EXTERNAL PROVIDER 2021-06-27 06:01:00 Doctor Unassigned, No [facility] RECORDS Name [facility] POCT URINALYSIS AUTO 2021-06-25 21:40:00 Michael Stearns [facility] Encounters Start End Encounter Admission Attending Care Care Encounter Source Date/Time Date/Time Type Type Clinicians Facility Department ID 2022-02-27 2022-02-27 Outpatient R CHANI [facility] [id number] Univers 10:30:00 10:30:[id number] [facility] 2021-07-17 2021-07-17 Telephone [facility] [id number] Univers 00:00:00 00:00:00 Michael WOLFE [id number] [facility] [id number] [facility] [id number] Nd dical [address] 2021-07-12 2021-07-12 Outpatient R DARYN [facility] [id number] Univers 15:05:26 23:59:00 [facility] [place] [facility] 2021-07-12 2021-07-12 [facility] [id number] Univers 15:00:00 23:59:00 Encounter [id number] [facility] [id number] [facility] [id number] [address] 2021-07-12 2021-07-12 Outpatient R DARYN [facility] [id number] Univers 00:00:00 00:00:00 MICHAEL [id number] ity [facility] 2021-06-28 2021-06-28 [facility] [id number] Univers 00:00:00 00:00:00 [facility] [id number] i ty [place] [id number] [address] 2021-06-27 2021-06-27 Orders Doctor DANIEL [id number] Univers 00:00:00 00:00:00 Only Unassigned, TOMEKA [id number] ity of [facility] [id number] [place] [id number] [address] 2021-06-25 2021-06-25 Office [facility] [id number] Univers 15:30:00 16:26:26 Visit [facility] [id number] i [id number] [id number] [address] 2021-06-25 2021-06-25 Outpatient R JUANFORMERLY [facility] [id number] [facility] 15:30:00 16:26:26 MICHAEL ity [facility] 2019-09-14 2019-09-14 Orders Doctor DANIEL [id number] 00:00:00 00:00:00 Only Unassigned, [place] [id number] [facility] [id number] [facility] 2019-07-26 2019-07-26 Office [facility] [id number] 10:47:22 11:42:00 Visit [facility] [id number] [place] [id number] Professio [phone] [address] 2017-03-30 2017-03-30 Outpatient Raju_P MM[facility] MMG [id number] [place] 04:40:00 04:40:00 0407 [facility] Results Test Description Test Time Test Comments Results Result Comments Source POCT URINALYSIS, INSTRUMENT 2021-06-25 21:41:00 Test Item Value Reference Range Interpretation Comme nts POCT U SP GRAV (test code = 3255) 1.030 mg/dl 1.005-1.025 A POCT PH U (test code = 3254) 6.0 mg/dl 5-8 POCT U LEUK EST (test code = 3263) Negative Negative - Negative POCT U NIT (test code = 3262) Negative Negative - Negative POCT U PROT (test code = 3259) Negative Negative - Negative POCT U GLU (test code = 3256) Negative Negative - Negative POCT U KETONE (test code = 3258) Negative Negative - Negative POCT U UROBILI (test code = 3260) 0.2 mg/dl 0.2-1 POCT U BILI (test code = 3261) Negative Negative - Negative POCT U BLD (test code = 3257) Negative Negative - Negative POCT U COLOR (test code = 3266) yellow POCT U APPEAR (test code = 3267) clear Lab Interpretation (test code = 77126-1) Abnormal [facility]
[2021-10-26 10:04] LABS: Albumin 3.6 g/dL (3.4-5.0); Bilirubin Direct 0.1 mg/dL (0-0.2); Bilirubin Total 0.5 mg/dL (0.2-1.0); Magnesium 2.2 mg/dL (1.8-2.4); Potassium 3.5 mmol/L (3.5-5.1); Troponin High Sensitivity 9.3 pg/mL (<58.9)
[2021-10-26 10:05] LABS: Absolute Lymphocytes (CBC) 1.9 K/uL (0.7-4.9); Hematocrit 43.1 % (39.6-49.0); Lymphocytes % 23.6 % (15.3-44.8); MPV 11.7 fL (7.6-11.3); RBC Red Blood Cell Count 4.48 M/uL (4.33-5.43)
[2021-10-26 10:06] LABS: Protime INR 1.12
--- NOTE | 2021-10-26 10:07 | RAD REPORT ---
EXAM DESCRIPTION: RAD - Chest Single View - 10/26/2021 9:37 am CLINICAL HISTORY: SWELLING COMPARISON: Chest Single View dated 06/25/2019; Chest Single View dated 06/06/2016; Chest Single View dated 01/07/2016; CHEST SINGLE VIEW dated 11/18/2013 FINDINGS: Lines: None. Lungs: No evidence of edema or pneumonia. Pleural: No significant pleural effusions or pneumothorax. Cardiac: The heart size is within normal limits. Bones: No acute fractures. Other: IMPRESSION: No acute cardiopulmonary disease.
--- NOTE | 2021-10-26 12:17 | ER ---
Nurse's Notes [facility] Name: Frank Loo Age: 80 yrs Sex: Male : 1940 Arrival Date: 10/26/2021 Time: 08:47 Bed 2 Private MD: Diagnosis: Edema, unspecified Presentation: 10/26 09:04 Chief complaint: Patient states: has had swelling in his hands, itching on hands and iw feet X 4 months , was sent by Sarah Tobar for possible kidney failure and dialysis. Coronavirus screen: At this time, the client does not indicate any symptoms associated with coronavirus-19. Ebola Screen: Patient negative for fever greater than or equal to 101.5 degrees Fahrenheit, and additional compatible Ebola Virus Disease symptoms Patient denies exposure to infectious person. Patient denies travel to an Ebola-affected area in the 21 days before illness onset. No symptoms or risks identified at this time. Initial Sepsis Screen: Does the patient meet any 2 criteria? No. Patient's initial sepsis screen is negative. Does the patient have a suspected source of infection? No. Patient's initial sepsis screen is negative. Risk Assessment: Do you want to hurt yourself or someone else? Patient reports no desire to harm self or others. Onset of symptoms was June 2021. 09:04 Method Of Arrival: Ambulatory iw 09:04 Acuity: ANISH 3 iw Triage Assessment: 09:10 General: Appears in no apparent distress. comfortable, Behavior is calm, cooperative, bp appropriate for age. Pain: Complains of pain in right hand, left hand, right foot and left foot Quality of pain is described as ITCHING. EENT: No deficits noted. Neuro: No deficits noted. Cardiovascular: No deficits noted. Respiratory: No deficits noted. GI: No signs and/or symptoms were reported involving the gastrointestinal system. : No signs and/or symptoms were reported regarding the genitourinary system. Derm: No deficits noted. Musculoskeletal: No deficits noted. Historical: - Allergies: : No Known Allergies; iw - Home Meds: : atorvastatin 20 mg oral tab 1 tab once daily [Active]; tamsulosin 0.4 mg oral cap 1 cap iw once daily [Active]; amlodipine 10 mg tab 1 tab once daily [Active]; allopurinol 300 mg Oral tab 1 tab once daily [Active]; gabapentin 300 mg oral cap 1 cap 3 times per day [Active]; fluticasone propionate 50 mcg/actuation nasal spsn 1 spray once daily [Active]; olopatadine 0.1 % ophthalmic (eye) drop 1 drop 2 times per day [Active]; - PMHx: 09:06 Arthritis; Hypertension; iw - PSHx: 09:06 None; iw - Immunization history:: Client reports receiving the 2nd dose of the Covid vaccine. - Social history:: Smoking status: Patient reports the use of cigarette tobacco products, denies chronic smoking, but will smoke occasionally. Screenin:10 Abuse screen: Denies threats or abuse. Denies injuries from another. Nutritional bp screening: No deficits noted. Tuberculosis screening: No symptoms or risk factors identified. Fall Risk None identified. Assessment: 09:10 General: SEE TRIAGE NOTE. bp 10:24 Reassessment: No changes from previously documented assessment. Patient and/or family bp updated on plan of care and expected duration. Pain level reassessed. 11:38 Reassessment: No changes from previously documented assessment. Patient and/or family bp updated on plan of care and expected duration. Pain level reassessed. 12:39 Reassessment: PT D/C HOME AMBULATORY WITH FAMILY, DX WITH UNSPECIFIED EDEMA. bp Vital Signs: 09:04 BP 140 / 67; Pulse 56; Resp 16; Temp 98.9; Pulse Ox 100% on R/A; Weight 75.75 kg; bp Height 5 ft. 4 in. (162.56 cm); 10:24 BP 132 / 83; Pulse 52; Resp 19; Pulse Ox 100% ; bp 11:37 BP 140 / 69; Pulse 53; Resp 15; Pulse Ox 97% ; bp 12:22 BP 141 / 68; Pulse 52; Resp 12; Pulse Ox 100% ; bp 09:04 Body Mass Index 28.67 (75.75 kg, 162.56 cm) bp ED Course: 08:47 Patient arrived in ED. ds1 09:06 Triage completed. iw 09:09 Arm band placed on. iw 09:10 Adolph Garner MD is Attending Physician. sp3 09:10 Patient has correct armband on for positive identification. Bed in low position. Call bp light in reach. Side rails up X2. Adult w/ patient. 09:14 Justin Phillips, RN is Primary Nurse. bp 09:17 Patient has correct armband on for positive identification. Placed in gown. Bed in low tp1 position. Call light in reach. Side rails up X 1. 09:17 XRAY Chest (1 view) Sent. bp 09:30 Inserted saline lock: 20 gauge in left forearm, using aseptic technique. Blood bp collected. 09:39 XRAY Chest (1 view) In Process Unspecified. EDMS 12:39 No provider procedures requiring assistance completed. IV discontinued, intact, bp bleeding controlled, No redness/swelling at site. Pressure dressing applied. Administered Medications: No medications were administered Outcome: 12:16 Discharge ordered by . sp3 12:39 Discharged to home ambulatory, with family. bp 12:39 Condition: stable 12:39 Discharge instructions given to patient, family, Instructed on discharge instructions, follow up and referral plans. Demonstrated understanding of instructions, follow-up care. 12:40 Patient left the ED. bp Signatures: Dispatcher [employer] EDOH [place]ori ds1 Nadine Owen RN RN iw Justin Phillips, RN RN bp Adolph Garner MD MD sp3 Anabel Allan tp1 Corrections: (The following items were deleted from the chart) 09:09 09:06 PMHx: Diabetes mellitus; iw iw 09:18 09:04 BP 140 / 67; Pulse 56bpm; Resp 16bpm; Pulse Ox 100% RA; 75.75 kg; Height 5 ft. 4 bp in.; BMI: 28.6; iw 10:41 10:24 BP 132 / 83; Pulse 52bpm; Resp 9bpm; Pulse Ox 100%; bp bp
--- NOTE | 2021-10-26 12:17 | EDPHYS ---
Physician Documentation [facility] Name: Frank Loo Age: 80 yrs Sex: Male : 1940 Arrival Date: 10/26/2021 Time: 08:47 Bed 2 Private MD: ED Physician Adolph Garner HPI: 10/26 10:36 This 80 yrs old Male presents to ER via Ambulatory with complaints of Rash, sp3 Heart Sound Changes. 10:36 80-year-old male with a history of hypertension, arthritis presents referred by his PCP sp3 office his nurse practitioner for "he might be in renal failure". I received a call from that office saying that his past creatinine was 1.4 and that he is coming in to see them for hand and feet swelling along with a chronic rash that he has had for the past 4 months (he has been on several creams for that). She initially called asking how to get the patient emergency dialysis. I asked her to just send the patient to us for evaluation and further treatment. He denies shortness of breath, chest pain, back pain, prior dialysis, or any change in his swelling and rash pattern since the last several days. Patient states that the swelling is primarily in his hands and much less on his feet. The rash is a scaly rash multiple areas of skin and again has been treated in the past. The swelling is predominantly in the hand and distal wrist bilaterally.. Historical: - Allergies: 09:06 No Known Allergies; iw - Home Meds: 09:06 atorvastatin 20 mg oral tab 1 tab once daily [Active]; tamsulosin 0.4 mg oral cap 1 cap iw once daily [Active]; amlodipine 10 mg tab 1 tab once daily [Active]; allopurinol 300 mg Oral tab 1 tab once daily [Active]; gabapentin 300 mg oral cap 1 cap 3 times per day [Active]; fluticasone propionate 50 mcg/actuation nasal spsn 1 spray once daily [Active]; olopatadine 0.1 % ophthalmic (eye) drop 1 drop 2 times per day [Active]; - PMHx: 09:06 Arthritis; Hypertension; iw - PSHx: 09:06 None; iw - Immunization history:: Client reports receiving the 2nd dose of the Covid vaccine. - Social history:: Smoking status: Patient reports the use of cigarette tobacco products, denies chronic smoking, but will smoke occasionally. ROS: 10:39 Constitutional: Negative for fever, chills, and weight loss, Eyes: Negative for injury, sp3 pain, redness, and discharge, ENT: Negative for injury, pain, and discharge, Neck: Negative for injury, pain, and swelling, Cardiovascular: Negative for chest pain, palpitations, and edema, Respiratory: Negative for shortness of breath, cough, wheezing, and pleuritic chest pain, Abdomen/GI: Negative for abdominal pain, nausea, vomiting, diarrhea, and constipation, Back: Negative for injury and pain, Neuro: Negative for headache, weakness, numbness, tingling, and seizure, Psych: Negative for depression, anxiety, suicide ideation, homicidal ideation, and hallucinations, Allergy/Immunology: Negative for hives, rash, and allergies, Endocrine: Negative for neck swelling, polydipsia, polyuria, polyphagia, and marked weight changes. 10:39 MS/extremity: Positive for Mild 2+ swelling bilateral hands nonpitting in nature.. 10:44 All other systems are negative. sp3 Exam: 10:44 Constitutional: This is a well developed, well nourished patient who is awake, alert, sp3 and in no acute distress. Head/Face: Normocephalic, atraumatic. Eyes: Pupils equal round and reactive to light, extra-ocular motions intact. Lids and lashes normal. Conjunctiva and sclera are non-icteric and not injected. Cornea within normal limits. Periorbital areas with no swelling, redness, or edema. ENT: Nares patent. No nasal discharge, no septal abnormalities noted. External auditory canals are clear. Oropharynx with no redness, swelling, or masses, exudates, or evidence of obstruction, uvula midline. Mucous membranes moist. Neck: Trachea midline, no thyromegaly or masses palpated, and no cervical lymphadenopathy. Supple, full range of motion without nuchal rigidity, or vertebral point tenderness. No Meningismus. Chest/axilla: Normal chest wall appearance and motion. Nontender with no deformity. No lesions are appreciated. Cardiovascular: Regular rate and rhythm with a normal S1 and S2. No gallops, murmurs, or rubs. Normal PMI, no JVD. No pulse deficits. Respiratory: Lungs have equal breath sounds bilaterally, clear to auscultation and percussion. No rales, rhonchi or wheezes noted. No increased work of breathing, no retractions or nasal flaring. Abdomen/GI: Soft, non-tender, with normal bowel sounds. No distension or tympany. No guarding or rebound. No evidence of tenderness throughout. Neuro: Awake and alert, GCS 15, oriented to person, place, time, and situation. Cranial nerves II-XII grossly intact. Motor strength 5/5 in all extremities. Sensory grossly intact. Cerebellar exam normal. Normal gait. Psych: Awake, alert, with orientation to person, place and time. Behavior, mood, and affect are within normal limits. 10:44 Musculoskeletal/extremity: 2+ nonpitting edema bilateral hands. Rash on bilateral hands with mild desquamation of the palms with underlying skin being intact and negative Nikolsky sign.. Vital Signs: 09:04 BP 140 / 67; Pulse 56; Resp 16; Temp 98.9; Pulse Ox 100% on R/A; Weight 75.75 kg; bp Height 5 ft. 4 in. (162.56 cm); 10:24 BP 132 / 83; Pulse 52; Resp 19; Pulse Ox 100% ; bp 11:37 BP 140 / 69; Pulse 53; Resp 15; Pulse Ox 97% ; bp 12:22 BP 141 / 68; Pulse 52; Resp 12; Pulse Ox 100% ; bp 09:04 Body Mass Index 28.67 (75.75 kg, 162.56 cm) bp MDM: 09:17 Patient medically screened. sp3 10:45 Data reviewed: vital signs, nurses notes. ED course: 80-year-old male originally sent sp3 for concerns of renal failure now with mild symptoms of extremity swelling and rash that has been ongoing for 4 months unclear do not believe patient is in renal failure however work-up is pending. If work-up is negative will discharge back to PCP for continued maintenance and follow-up.. 12:14 ED course: With normal work-up including normal creatinine. Patient is in no need of sp3 dialysis. We will discharge patient home with follow-up back with PCP.. 10/26 09:11 Order name: Basic Metabolic Panel; Complete Time: 12:14 sp3 10/26 09:11 Order name: CBC with Diff; Complete Time: 12:14 sp3 10/26 09:11 Order name: LFT's; Complete Time: 12:14 sp3 10/26 09:11 Order name: Magnesium; Complete Time: 12:14 sp3 10/26 09:11 Order name: NT PRO-BNP; Complete Time: 12:14 sp3 10/26 09:11 Order name: PT-INR; Complete Time: 12:14 sp3 10/26 09:11 Order name: Troponin HS; Complete Time: 12:14 sp3 10/26 09:11 Order name: XRAY Chest (1 view); Complete Time: 12:14 sp3 10/26 09:11 Order name: EKG; Complete Time: 09:11 sp3 10/26 09:11 Order name: Cardiac monitoring; Complete Time: 09:16 sp3 10/26 09:11 Order name: EKG - Nurse/Tech; Complete Time: 09:17 sp3 10/26 09:11 Order name: IV Saline Lock; Complete Time: 09:31 sp3 10/26 09:11 Order name: Labs collected and sent; Complete Time: 09:31 sp3 10/26 09:11 Order name: O2 Per Protocol; Complete Time: 09:17 sp3 10/26 09:11 Order name: O2 Sat Monitoring; Complete Time: 09:17 sp3 Administered Medications: No medications were administered Disposition Summary: 10/26/21 12:16 Discharge Ordered Location: Home sp3 Condition: Stable sp3 Diagnosis - Edema, unspecified sp3 Followup: sp3 - With: Private Physician - When: Upon discharge from the Emergency Department - Reason: Re-evaluation by your physician Discharge Instructions: - Discharge Summary Sheet sp3 - Edema sp3 Forms: - Medication Reconciliation Form sp3 - Thank You Letter sp3 - Antibiotic Education sp3 - Prescription Opioid Use sp3 Signatures: Dispatcher [employer] Nadine Schumacher RN RN iw Patel, Setul, MD MD sp3 Corrections: (The following items were deleted from the chart) 09: 09:06 PMHx: Diabetes mellitus; dwight
[2021-10-26 13:14] VITALS: TEMP 98.9
[2021-10-26 13:17] VITALS: BP 141/68; O2SAT 100
--- NOTE | 2021-10-27 09:25 | EKG ---
Test Date: 2021-10-26 Test Time: 09:20:32 [employer]obile [employer] Customizer: TP MEASUREMENT RESULTS: Intervals: Rate: 55 ID: [id number] QRSD: 94 QT: 454 QTc: 434 [place]: P: 31 ID: [id number] QRS: 14 T: 17 INTERPRETIVE STATEMENTS: Sinus bradycardia Moderate voltage criteria for LVH, may be normal variant Inferior infarct, age undetermined Abnormal ECG Compared to ECG 06/25/2019 07:51:01 Left ventricular hypertrophy now present Myocardial infarct finding now present Electronically Signed On 10-27-21 09:22:41 CDT by Javi Krishnan
== END 2021-10-26 12:40 | disposition home or self-care (01) ==
LOC: ER 08:43
DX: R60.9 Edema, unspecified (principal); R21 Rash and other nonspecific skin eruption; I10 Essential (primary) hypertension; F17.210 Nicotine dependence, cigarettes, uncomplicated
CPT/HCPCS: 36415; 71045; 80048; 80076; 83735; 83880; 84484; 85025; 85610; 93005; 99284

== ENCOUNTER → 2023-07-21 | Emergency (ER) | payer OTHER ==
[~2023-07-21] MED LIST: ACETAMINOPHEN 500 MG TAB ONE; NA CHLORIDE 0.9% 500 ML ONE
[2023-07-21 15:26] LABS: Absolute Lymphocytes (CBC) 1.3 K/uL (0.7-4.9); Hematocrit 40.1 % (39.6-49.0); Platelets 313 thou/uL (152-406); RBC Red Blood Cell Count 4.22 M/uL (4.33-5.43)
[2023-07-21 15:27] LABS: Magnesium 1.8 mg/dL (1.6-2.4); Troponin High Sensitivity 7.9 pg/mL (<58.9)
[2023-07-21 15:30] LABS: SARS-CoV-2 Antigen Rapid Res Negative (Negative)
--- NOTE | 2023-07-21 15:42 | RAD REPORT ---
[facility] 2[facility]25 pm CLINICAL HISTORY: generalized weakness COMPARISON: Chest Single View dated 10/26/2021; Chest Single View dated 06/25/2019; Chest Single View da junior 06/06/2016; Chest Single View dated 01/07/2016 TECHNIQUE: Portable AP view of the chest. FINDINGS: The lungs are clear. No pneumothorax or effusion. The cardiomediastinal contours are unre markable. IMPRESSION: No acute cardiopulmonary process.
--- NOTE | 2023-07-21 16:20 | ER ---
Nurse's Notes [facility] Name: Frank Loo Age: 82 yrs Sex: Male : 1940 Arrival Date: 07/21/2023 Time: 13:24 Bed 3 Private MD: Diagnosis: Influenza B;Lightheaded;Renal Insufficiency Presentation: 07/21 13:40 Chief complaint: Patient states: Pt c/o dizziness, blurred vision, weakness x 2 days. tl4 Pt feels like he's going to pass out. No fever/chills. Coronavirus screen: Vaccine status: Patient reports receiving the 2nd dose of the covid vaccine. Ebola Screen: Patient negative for fever greater than or equal to 101.5 degrees Fahrenheit, and additional compatible Ebola Virus Disease symptoms Patient denies exposure to infectious person. Patient denies travel to an Ebola-affected area in the 21 days before illness onset. No symptoms or risks identified at this time. No acute neurological deficit is noted. Initial Sepsis Screen: Does the patient meet any 2 criteria? No. Patient's initial sepsis screen is negative. Does the patient have a suspected source of infection? No. Patient's initial sepsis screen is negative. Risk Assessment: Do you want to hurt yourself or someone else? Patient reports no desire to harm self or others. Onset of symptoms was July 19, 2023. 13:40 Method Of Arrival: Ambulatory tl4 13:40 Acuity: ANISH 3 tl4 Triage Assessment: 13:42 The onset of the patients symptoms was July 19, 2023 at 14:00. General: Appears in tl4 no apparent distress. Behavior is calm, cooperative. Pain: Denies pain. Neuro: Reports blurred vision dizziness, headache. Stroke Activation: Symptom onset > 6 hours Physician: Stroke Attending; Name: ; Notified At: ; Arrived At: Physician: Chief Stroke Resident; Name: ; Notified At: ; Arrived At: Physician: Stroke Resident; Name: ; Notified At: ; Arrived At: Physician: ED Attending; Name: ; Notified At: ; Arrived At: Physician: ED Resident; Name: ; Notified At: ; Arrived At: Historical: - Allergies: 13:42 No Known Allergies; tl4 - PMHx: 13:42 Arthritis; Hypertension; tl4 - PSHx: 13:42 None; tl4 - Immunization history:: Adult Immunizations unknown. - Social history:: Smoking status: Patient reports the use of cigarette tobacco products, denies chronic smoking, but will smoke occasionally. Screenin:15 [facility] [place] ED Fall Risk Assessment (Adult) History of falling in the last 3 months, ph including since admission No falls in past 3 months (0 pts) Confusion or Disorientation No (0 pts) Intoxicated or Sedated No (0 pts) Impaired Gait No (0 pts) Mobility Assist Device Used No (0 pt) Altered Elimination No (0 pt) Score/Fall Risk Level 0 - 2 = Low Risk Oriented to surroundings, Maintained a safe environment, Provided non-skid footwear, Hourly rounding (assess needs \T\ fall precautionary measures) done. Abuse screen: Denies threats or abuse. Denies injuries from another. Nutritional screening: No deficits noted. Tuberculosis screening: No symptoms or risk factors identified. Assessment: 15:15 General: Appears in no apparent distress. comfortable, Behavior is calm, cooperative. ph Pain: Denies pain. Neuro: Level of Consciousness is awake, alert, obeys commands, Oriented to person, place, time, situation, Reports dizziness, weakness. Cardiovascular: Capillary refill < 3 seconds in bilateral fingers Patient's skin is warm and dry. Respiratory: Airway is patent Respiratory effort is even, unlabored, Respiratory pattern is regular, symmetrical. GI: No signs and/or symptoms were reported involving the gastrointestinal system. Derm: Skin is pink, warm \T\ dry. Musculoskeletal: Circulation, motion, and sensation intact. Range of motion: intact in all extremities. 15:15 VAN Scoring: Arm Drift: Patients demonstrates NO arm weakness. Patient is VAN Negative. ph [place] Swallow Protocol Brief Cognitive Screen What is your name? Normal, Where are you right now? Normal, What year is it? Normal. Oral Mechanism Examination Facial Symmetry: Normal, Motion: Normal, Lip Closure: Normal, Oral Mechanism Result: Normal. 3 oz Water Swallow Challenge: Pt able to drink all water without stopping, coughing, choking or throat clearing: Yes Result: PASS. TNKase (Tenecteplase) Screening: Contraindications: Patient reports onset of signs and symptoms of stroke greater than 6 hours ago:. 16:08 Reassessment: No changes from previously documented assessment. Patient and/or family ll1 updated on plan of care and expected duration. Pain level reassessed. 17:00 Reassessment: Reassessment: D/C pending completion of IV fluids. ph Vital Signs: 13:40 BP 132 / 73; Pulse 65; Resp 18; Temp 98; Pulse Ox 99% on R/A; Weight 67.13 kg; Height 5 tl4 ft. 5 in. ; Pain 5/10; 16:21 BP 127 / 82; Pulse 54; Resp 18; Temp 98; Pulse Ox 99% on R/A; ph 17:55 BP 129 / 87; Pulse 52; Resp 16; Temp 97.9; Pulse Ox 97% on R/A; ph 13:40 Body Mass Index 24.63 (67.13 kg, 165.1 cm) tl4 13:40 Pain Scale: Adult tl4 NIH Stroke Scale Scores: 15:15 NIHSS Score: 0 ph ED Course: 13:28 Patient arrived in ED. mg5 13:39 Kentrell Fernandez DO is Attending Physician. ms3 13:41 Triage completed. tl4 13:42 Arm band placed on Patient placed in a hallway bed, on a stretcher. tl4 14:27 XRAY Chest (1 view) In Process Unspecified. EDMS 14:57 Gina Richmond, RN is Primary Nurse. ph 14:59 SARS RAPID Sent. em1 14:59 Flu Sent. em1 14:59 Basic Metabolic Panel Sent. em1 14:59 CBC with Diff Sent. em1 14:59 Magnesium Sent. em1 14:59 Troponin HS Sent. em1 14:59 Initial lab(s) drawn, by ca, sent to lab. COVID swab sent to lab. Flu and/or RSV swab em1 sent to lab. Inserted saline lock: 20 gauge in left antecubital area, using aseptic technique. Blood collected. 16:15 Patient has correct armband on for positive identification. Placed in gown. Bed in low ph position. Call light in reach. Side rails up X2. Client placed on continuous cardiac and pulse oximetry monitoring. NIBP monitoring applied. 16:19 Neville Garner DO is Referral Physician. ms3 17:56 No provider procedures requiring assistance completed. IV discontinued, intact, ph bleeding controlled, No redness/swelling at site. Pressure dressing applied. Administered Medications: 16:14 Drug: NS 0.9% IV 500 ml IV at bolus once Route: IV; Rate: bolus; Site: left antecubital;ph 17:35 Follow up: Response: No adverse reaction; IV Status: Completed infusion; IV Intake: ph 500ml 16:14 Drug: Acetaminophen PO 1000 mg PO once Route: PO; ph 17:57 Follow up: Response: No adverse reaction ph Medication: 16:17 VIS not applicable for this client. ph Intake: 17:35 IV: 500ml; Total: 500ml. ph Outcome: 16:19 Discharge ordered by . ms3 17:56 Discharged to home ambulatory, ph 17:56 Condition: good 17:56 Discharge instructions given to patient, significant other, Instructed on discharge instructions, follow up and referral plans. medication usage, Demonstrated understanding of instructions, follow-up care, medications, Prescriptions given X 1, 17:57 Patient left the ED. NIH Stroke Scale - NIH Stroke Score Date: 07/21/2023 Time: 15:15 Total Score = 0 10. Dysarthria (speech clarity - read or repeat words) - 0(Normal) 11. Extinction and Inattention (visual/tactile/auditory/spatial/personal) - 0(No abnormality) 1a. Level of Consciousness (LOC) - 0(Alert) 1b. Level of Consciousness (LOC) (Month \T\ Age) - 0(Both) 1c. LOC Commands (Open \T\ Closes Eyes/Contact Lens Technician) - 0(Both) 2. Best Gaze (Lateral Gaze Paresis) - 0(Normal) 3. Visual Field Loss - 0(No visual loss) 4. Facial Palsy - 0(Normal) 5a. Left Arm: Motor (10-second hold) - 0(No drift) 5b. Right Arm: Motor (10-second hold) - 0(No drift) 6a. Left Leg: Motor (5-second hold - always test supine) - 0(No drift) 6b. Right Leg: Motor (5-second hold - always test supine) - 0(No drift) 7. Limb Ataxia (finger/nose \T\ heel/madden - test with eyes open) - 0(Absent) 8. Sensory Loss (pinprick arms/legs/face) - 0(Normal) 9. Best Language: Aphasia (description/naming/reading) - 0(No aphasia) Initials: Signatures: Dispatcher [employer] Margarito Waters em1 Gina Richmond, RN RN ph Jc Lr RN RN ll1 Kentrell Fernandez, DO SCHNEIDER ms3 Deana Mehta mg5 Chencho Ortiz tl4 Corrections: (The following items were deleted from the chart) 17:55 17:00 Reassessment: ph ph
--- NOTE | 2023-07-21 16:20 | EDPHYS ---
Physician Documentation [facility] Name: Frank Loo Age: 82 yrs Sex: Male : 1940 Arrival Date: 07/21/2023 Time: 13:24 Bed 3 Private MD: ED Physician Kentrell Fernandez HPI: 07/21 15:05 This 82 yrs old Male presents to ER via Ambulatory with complaints of ms3 Dizziness, Blurred Vision, Weakness. 15:05 82-year-old male with past medical history of arthritis, hypertension presents to the [facility] emergency department for lightheadedness, blurry vision, generalized weakness that has been ongoing for 2 days. Patient denies pain. Patient endorses chills. Patient denies fevers, nausea, vomiting, diarrhea. Patient denies any alleviating or inciting factors. Historical: - Allergies: 13:42 No Known Allergies; tl4 - PMHx: 13:42 Arthritis; Hypertension; tl4 - PSHx: 13:42 None; tl4 - Immunization history:: Adult Immunizations unknown. - Social history:: Smoking status: Patient reports the use of cigarette tobacco products, denies chronic smoking, but will smoke occasionally. ROS: 15:05 Cardiovascular: Negative for chest pain, and palpitations. Respiratory: Negative for ms3 shortness of breath, cough, wheezing, and pleuritic chest pain, Abdomen/GI: Negative for abdominal pain, nausea, vomiting, diarrhea, and constipation, 15:05 Constitutional: Positive for chills, Negative for fever, 15:05 Neuro: Exam: 15:05 Constitutional: This is a well developed, well nourished patient who is awake, alert, ms3 and in no acute distress. Head/Face: Normocephalic, atraumatic. Neck: Trachea midline, no cervical lymphadenopathy. Supple, full range of motion without nuchal rigidity, or vertebral point tenderness. No Meningismus. Chest/axilla: Normal chest wall appearance and motion. Nontender with no deformity. Cardiovascular: Regular rate and rhythm with a normal S1 and S2. No gallops, murmurs, or rubs. Normal PMI, no JVD. No pulse deficits. Respiratory: Lungs have equal breath sounds bilaterally, clear to auscultation and percussion. No rales, rhonchi or wheezes noted. No increased work of breathing, no retractions or nasal flaring. Abdomen/GI: Soft, non-tender, with normal bowel sounds. No distension or tympany. No guarding or rebound. No evidence of tenderness throughout. Skin: Warm, dry with normal turgor. Normal color with no rashes, no lesions, and no evidence of cellulitis. MS/ Extremity: Pulses equal, no cyanosis. Neurovascular intact. Full, normal range of motion. 16:13 ECG was reviewed by the Attending Physician. ms3 Vital Signs: 13:40 BP 132 / 73; Pulse 65; Resp 18; Temp 98; Pulse Ox 99% on R/A; Weight 67.13 kg; Height 5 tl4 ft. 5 in. ; Pain 5/10; 16:21 BP 127 / 82; Pulse 54; Resp 18; Temp 98; Pulse Ox 99% on R/A; ph 17:55 BP 129 / 87; Pulse 52; Resp 16; Temp 97.9; Pulse Ox 97% on R/A; ph 13:40 Body Mass Index 24.63 (67.13 kg, 165.1 cm) tl4 13:40 Pain Scale: Adult tl4 NIH Stroke Scale Scores: 15:15 NIHSS Score: 0 ph MDM: 13:39 Patient medically screened. ms3 15:07 Differential diagnosis: cardiac arrhythmia, generalized weakness, near-syncope, NE vs ms3 Flu vs Covid. 16:13 Data reviewed: vital signs, nurses notes, EKG, radiologic studies, and as a result, I ms3 will discharge patient. I considered the following discharge prescriptions or medication management in the emergency department Medications were administered in the Emergency Department. See MAR. Independent interpretation of the following test(s) in the Emergency Department EKG: See my EKG interpretation above X-Ray: My interpretation is CXR image reviewed by me does not reveal pna. Care significantly affected by the following chronic conditions: Hypertension. Counseling: I had a detailed discussion with the patient and/or guardian regarding the historical points, exam findings, and any diagnostic results supporting the discharge/admit diagnosis, lab results, radiology results, the need for outpatient follow up, to return to the emergency department if symptoms worsen or persist or if there are any questions or concerns that arise at home. Special discussion: I discussed with the patient/guardian in detail that at this point there is no indication for admission to the hospital. It is understood, however, that if the symptoms persist or worsen the patient needs to return immediately for re-evaluation. ED course: Discussed labs, chest x-ray, EKG with patient and his . Patient to follow-up with his primary care physician in 2 to 3 days. Patient understands agrees with plan. All questions were answered. Return precautions discussed include worsening symptoms, or any other concerns. On reevaluation patient is alert and oriented x 4, no apparent distress, nontoxic-appearing, speaking full sentences. 07/21 13:40 Order name: Basic Metabolic Panel; Complete Time: 15:44 ms3 07/21 13:40 Order name: CBC with Diff; Complete Time: 15:44 ms3 07/21 13:40 Order name: Magnesium; Complete Time: 15:44 ms3 07/21 13:40 Order name: Troponin HS; Complete Time: 15:44 ms3 07/21 13:40 Order name: Flu; Complete Time: 15:44 ms3 07/21 13:40 Order name: SARS RAPID; Complete Time: 15:44 ms3 07/21 13:40 Order name: XRAY Chest (1 view); Complete Time: 15:44 ms3 07/21 13:40 Order name: EKG; Complete Time: 13:40 ms3 07/21 13:40 Order name: Cardiac monitoring; Complete Time: 16:14 ms3 07/21 13:40 Order name: EKG - Nurse/Tech; Complete Time: 16:14 ms3 07/21 13:40 Order name: IV Saline Lock; Complete Time: 14:59 ms3 07/21 13:40 Order name: Labs collected and sent; Complete Time: 14:59 ms3 07/21 13:40 Order name: O2 Per Protocol; Complete Time: 15:05 ms3 07/21 13:40 Order name: O2 Sat Monitoring; Complete Time: 15:05 ms3 EC:13 Rate is 48 beats/min. Rhythm is regular. QRS [place] is Normal. QRS interval is normal. ms3 Clinical impression: Sinus bradycardia. Interpreted by me. Reviewed by me. Administered Medications: 16:14 Drug: NS 0.9% IV 500 ml IV at bolus once Route: IV; Rate: bolus; Site: left antecubital;ph 17:35 Follow up: Response: No adverse reaction; IV Status: Completed infusion; IV Intake: ph 500ml 16:14 Drug: Acetaminophen PO 1000 mg PO once Route: PO; ph 17:57 Follow up: Response: No adverse reaction ph Disposition Summary: 07/21/23 16:19 Discharge Ordered Notes: Location: Home ms3 Condition: Stable ms3 Diagnosis - Influenza B ms3 - Lightheaded ms3 - Renal Insufficiency ms3 Followup: ms3 - With: Neville Garner, DO - When: 2 - 3 days - Reason: Recheck today's complaints Discharge Instructions: - Discharge Summary Sheet ms3 - Influenza, Adult, [id number] ms3 Forms: - Medication Reconciliation Form ms3 - Thank You Letter ms3 - Antibiotic Education ms3 - Prescription Opioid Use ms3 - Patient Portal Instructions ms3 - Leadership Thank You Letter ms3 Prescriptions: - Tamiflu 75 mg Oral capsule - take 1 tablet ORAL route every 12 hours for 5 days; 10 tablet; Refills: 0, ms3 Product Selection Permitted NIH Stroke Scale - NIH Stroke Score Date: 07/21/2023 Time: 15:15 Total Score = 0 10. Dysarthria (speech clarity - read or repeat words) - 0(Normal) 11. Extinction and Inattention (visual/tactile/auditory/spatial/personal) - 0(No abnormality) 1a. Level of Consciousness (LOC) - 0(Alert) 1b. Level of Consciousness (LOC) (Month \T\ Age) - 0(Both) 1c. LOC Commands (Open \T\ Closes Eyes/Cmm Technician) - 0(Both) 2. Best Gaze (Lateral Gaze Paresis) - 0(Normal) 3. Visual Field Loss - 0(No visual loss) 4. Facial Palsy - 0(Normal) 5a. Left Arm: Motor (10-second hold) - 0(No drift) 5b. Right Arm: Motor (10-second hold) - 0(No drift) 6a. Left Leg: Motor (5-second hold - always test supine) - 0(No drift) 6b. Right Leg: Motor (5-second hold - always test supine) - 0(No drift) 7. Limb Ataxia (finger/nose \T\ heel/madden - test with eyes open) - 0(Absent) 8. Sensory Loss (pinprick arms/legs/face) - 0(Normal) 9. Best Language: Aphasia (description/naming/reading) - 0(No aphasia) Initials: ph Signatures: Dispatcher [employer] Gina Pulido, RN RN ph Kentrell Fernandez DO DO ms3 Chencho Ortiz tl4
[2023-07-21 22:06] VITALS: BP 129/87; TEMP 97.9; O2SAT 97
== END ==
LOC: ER 13:24
DX: J10.1 Influenza due to other identified influenza virus with other respiratory manifestations (principal); N28.9 Disorder of kidney and ureter, unspecified; F17.210 Nicotine dependence, cigarettes, uncomplicated; Z11.52 Encounter for screening for COVID-19
CPT/HCPCS: 93005; 85025; 80048; 36415; 83735; 84484; 87804 ×2; 71045; 87811; J7040

== ENCOUNTER 2024-02-29 09:21 | Emergency (ER) | payer OTHER ==
[2024-02-29 10:07] LABS: Absolute Eosinophils 0.4 K/uL (0-0.5); Absolute Monocytes 0.6 K/uL (0.1-1.3); Basophils % 0.6 % (0-1.3); Eosinophils % 6.4 % (0-4.4); Hematocrit 37.6 % (39.6-49.0); Hemoglobin 12.9 g/dL (13.6-17.9); Lymphocytes % 16.7 % (15.3-44.8); MCH 33.5 pg (27.0-35.0); MCHC 34.2 g/dL (32.0-36.0); MCV 97.8 fL (80-100); MPV 9.7 fL (7.6-11.3); Neutrophils % 66.3 % (41.7-73.7); Platelets 198 thou/uL (152-406); RBC Red Blood Cell Count 3.84 M/uL (4.33-5.43); Red Cell Distribution Width 14.6 % (12.1-15.2)
[2024-02-29 10:13] LABS: PT Prothrombin Time 12.4 SECONDS (9.4-12.5); Protime INR 1.11
[2024-02-29 10:16] LABS: SARS-CoV-2 Antigen CONTROL BLUE LINE VIS/BG OK; SARS-CoV-2 Antigen Rapid Res Negative (Negative)
[2024-02-29 10:24] LABS: ALT/SGPT 21 U/L (16-61); AST/SGOT 17 U/L (15-37); Albumin 3.3 g/dL (3.4-5.0); Albumin/Globulin Ratio 0.9 (1.1-1.8); Alkaline Phosphatase 148 U/L (45-117); Anion Gap 8.3 mEq/L (5.0-15.0); BUN Blood Urea Nitrogen 18 mg/dL (7-18); Bicarbonate 25 mEq/L (21-32); Bilirubin Total 0.4 mg/dL (0.2-1.0); Globulin 3.5 g/dL (2.3-3.5); Glomerular Filtration Rate 56 ml/min (=/>90); Glucose Level 113 mg/dL (74-106); Magnesium 2.1 mg/dL (1.6-2.4); Potassium 4.3 mEq/L (3.5-5.1); Protein, Total 6.8 g/dL (6.4-8.2); Sodium Level 138 mEq/L (136-145); Troponin High Sensitivity 8.6 pg/mL (<58.9)
[2024-02-29 10:25] LABS: Bilirubin Direct < 0.2 mg/dL (0-0.2); Bilirubin Indirect, Calculated 0.2 mg/dL (0.2-0.8)
--- NOTE | 2024-02-29 10:48 | RAD REPORT ---
EXAM DESCRIPTION: CT - Head Brain Wo Cont - 02/29/2024 10:12 am CLINICAL HISTORY: PAIN Headache, drowsiness COMPARISON: Facial Bones W Con Mpr dated 09/02/2020; Head Brain Wo Cont dated 06/25/2019 TECHNIQUE: All CT scans are performed using dose optimization technique as appropriate and may inclu de automated exposure control or mA/KV adjustment according to patient size. FINDINGS: No intracranial hemorrhage, hydrocephalus or extra-axial fluid collection.Mild generalized brain atrophy is present with mild periventricular and deep white matter chronic microvascular ische ramon changes.No areas of brain edema or evidence of midline shift. Mild frontoethmoidal sinus thickening. The calvarium is intact. IMPRESSION: No acute intracranial abnormality.
--- NOTE | 2024-02-29 10:49 | RAD REPORT ---
EXAM DESCRIPTION: RAD - Chest Single View - 02/29/2024 10:11 am CLINICAL HISTORY: PAIN Chest pain. COMPARISON: Chest Single View dated 07/21/2023; Chest Single View dated 10/26/2021; Chest Single View d ated 06/25/2019; Chest Single View dated 06/06/2016 FINDINGS: Portable technique limits examination quality. The lungs are mildly fibrotic grossly clear. The heart is normal in size. No displaced fractures. IMPRESSION: No acute intrathoracic process suspected.
--- NOTE | 2024-02-29 11:18 | ER ---
Nurse's Notes [facility] Name: Frank Loo Age: 83 yrs Sex: Male : 1940 Arrival Date: 02/29/2024 Time: 09:21 Bed 8 Private MD: Diagnosis: Influenza due to identified novel influenza A virus-B Presentation: 02/28 09:40 Chief complaint: Headache, body aches, and dizziness x 3 days. Denies fever. hb Coronavirus screen: Client presents with at least one sign or symptom that may indicate coronavirus-19. Provider contacted for isolation considerations. Ebola Screen: No symptoms or risks identified at this time. Initial Sepsis Screen: Does the patient meet any 2 criteria? No. Patient's initial sepsis screen is negative. Does the patient have a suspected source of infection? No. Patient's initial sepsis screen is negative. Risk Assessment: Do you want to hurt yourself or someone else? Patient reports no desire to harm self or others. Onset of symptoms was February 27, 2024. 09:40 Method Of Arrival: Ambulatory 09:40 Acuity: ANISH 3 Triage Assessment: 09:43 Headache History: Denies prior headaches. General: Appears in no apparent distress. hb Behavior is calm, cooperative. Pain: Pain currently is 8 out of 10 on a pain scale. Pain began 2-3 days ago. Also complains of body aches, dizziness. Neuro: Level of Consciousness is awake, alert, obeys commands, Oriented to person, place, time, situation, Reports dizziness, numbness. Cardiovascular: Patient's skin is warm and dry. Respiratory: Respiratory effort is even, unlabored, Respiratory pattern is regular, symmetrical. Historical: - Allergies: :43 No Known Allergies; hb - Home Meds: :43 allopurinol 300 mg Oral tab 1 tab once daily [Active]; amlodipine 10 mg tab 1 tab once hb daily [Active]; atorvastatin 20 mg Oral tab 1 tab once daily [Active]; fluticasone propionate 50 mcg/actuation nasal spsn 1 spray once daily [Active]; gabapentin 300 mg Oral cap 1 cap 3 times per day [Active]; olopatadine 0.1 % ophthalmic (eye) drop 1 drop 2 times per day [Active]; tamsulosin 0.4 mg Oral cap 1 cap once daily [Active]; - PMHx: 09:43 Arthritis; Hypertension; hb - PSHx: 09:43 None; hb - Immunization history:: Adult Immunizations up to date. - Infectious Disease History:: Denies. - Social history:: Smoking status: Patient/guardian denies using tobacco, but has a distant history of tobacco abuse. Screenin:00 [facility] ED Fall Risk Assessment (Adult) History of falling in the last 3 months, ph including since admission No falls in past 3 months (0 pts) Confusion or Disorientation No (0 pts) Intoxicated or Sedated No (0 pts) Impaired Gait No (0 pts) Mobility Assist Device Used No (0 pt) Altered Elimination No (0 pt) Score/Fall Risk Level 0 - 2 = Low Risk Oriented to surroundings, Maintained a safe environment, Hourly rounding (assess needs \T\ fall precautionary measures) done. Abuse screen: Denies threats or abuse. Has been threatened or abused. Nutritional screening: No deficits noted. Tuberculosis screening: No symptoms or risk factors identified. Assessment: 09:59 General: Appears in no apparent distress. comfortable, well groomed, Behavior is calm, ph cooperative, appropriate for age. General: Reports chills for. Pain: Complains of pain in headache. Neuro: Level of Consciousness is awake, alert, obeys commands, Oriented to person, place, time, situation. Neuro: Reports dizziness, headache. Cardiovascular: Reports lightheadedness, Capillary refill < 3 seconds in bilateral fingers Patient's skin is warm and dry. Respiratory: GI: No signs and/or symptoms were reported involving the gastrointestinal system. Derm: Skin is pink, warm \T\ dry. Vital Signs: 09:40 BP 198 / 68; Pulse 52; Resp 16; Temp 97.1(TE); Pulse Ox 100% on R/A; Weight 65.77 kg; hb Height 5 ft. 0 in. ; Pain 8/10; 11:41 BP 187 / 68; Pulse 48; Resp 18; Temp 97.9; Pulse Ox 98% on R/A; ph 09:40 Body Mass Index 28.32 (65.77 kg, 152.4 cm) hb 09:40 Pain Scale: Adult hb [place] Coma Score: 09:49 Eye Response: spontaneous(4). Motor Response: obeys commands(6). Verbal Response: kb oriented(5). Total: 15. ED Course: 09:22 Patient arrived in ED. mr 09:25 Venita Hwang [facility]C [facility] kb 09:25 Radames Joya MD is Attending Physician. kb 09:37 Gina Richmond, RN is Primary Nurse. ph 09:43 Triage completed. hb 09:45 Arm band placed on. hb 09:58 Initial lab(s) drawn, by me, sent to lab. EKG done, by ED staff, reviewed by Gina Richmond RN COVID swab sent to lab. Flu and/or RSV swab sent to lab. Inserted saline lock: 22 gauge in right antecubital area, using aseptic technique. Blood collected. Flushed with 10 mL NS. 10:00 Patient has correct armband on for positive identification. Placed in gown. Bed in low ph position. Side rails up X 1. Pulse ox on. NIBP on. Door closed. Noise minimized. Warm blanket given. 10:02 SARS-COV-2 Antigen Rapid Sent. ph 10:02 Flu Sent. ph 10:02 Basic Metabolic Panel Sent. ph 10:02 CBC with Diff Sent. ph 10:02 Hepatic Function Sent. ph 10:03 Magnesium Sent. ph 10:03 Protime (+inr) Sent. ph 10:03 Ptt, Activated Sent. ph 10:03 Troponin High Sensitivity Sent. ph 10:13 Chest Single View XRAY In Process Unspecified. EDMS 10:15 CT Head Brain wo Cont In Process Unspecified. EDMS 11:42 No provider procedures requiring assistance completed. IV discontinued, intact, ph bleeding controlled, No redness/swelling at site. Pressure dressing applied. Administered Medications: No medications were administered Medication: 10:00 VIS not applicable for this client. ph Outcome: 11:17 Discharge ordered by . kb 11:42 Discharged to home ambulatory, ph 11:42 Condition: good 11:42 Discharge instructions given to patient, Instructed on discharge instructions, follow up and referral plans. Demonstrated understanding of instructions, follow-up care, 11:43 Patient left the ED. ph Signatures: Dispatcher [employer] EDMS Venita Hwang FNP-C [employer]-C[employer] Desirae Higgins, Reg Reg mr Gina Richmond, RN RN ph Jessie Pascual RN RN
--- NOTE | 2024-02-29 11:18 | EDPHYS ---
Physician Documentation [facility] Name: Frank Loo Age: 83 yrs Sex: Male : 1940 Arrival Date: 02/29/2024 Time: 09:21 Bed 8 Private MD: ED Physician Radames Joya HPI: 02/28 09:49 This 83 yrs old Male presents to ER via Ambulatory with complaints of kb Headache, Chills,shaking. 09:49 Pt is an 83 year old male who presents with dizziness, headache, shoulder pain that kb started 3 days ago. States he has an appt with his PCP next week to have tests done on his head, but isn't sure what tests. Denies nausea, vomiting, fever, shortness of breath, chest pain. Historical: - Allergies: :43 No Known Allergies; hb - Home Meds: :43 allopurinol 300 mg Oral tab 1 tab once daily [Active]; amlodipine 10 mg tab 1 tab once hb daily [Active]; atorvastatin 20 mg Oral tab 1 tab once daily [Active]; fluticasone propionate 50 mcg/actuation nasal spsn 1 spray once daily [Active]; gabapentin 300 mg Oral cap 1 cap 3 times per day [Active]; olopatadine 0.1 % ophthalmic (eye) drop 1 drop 2 times per day [Active]; tamsulosin 0.4 mg Oral cap 1 cap once daily [Active]; - PMHx: :43 Arthritis; Hypertension; hb - PSHx: :43 None; hb - Immunization history:: Adult Immunizations up to date. - Infectious Disease History:: Denies. - Social history:: Smoking status: Patient/guardian denies using tobacco, but has a distant history of tobacco abuse. ROS: 09:38 Constitutional: As per HPI kb Exam: 09:38 Constitutional: This is a well developed, well nourished patient who is awake, alert, kb and in no acute distress. Head/Face: Normocephalic, atraumatic. ENT: Moist Mucous membranes Cardiovascular: Regular rate Respiratory: Respirations even and unlabored. No increased work of breathing. Talking in full sentences Abdomen/GI: Soft, non-tender. No distention Skin: Warm, dry with normal turgor. Normal color. MS/ Extremity: Pulses equal, no cyanosis. Neurovascular intact. Full, normal range of motion. Neuro: Awake and alert, GCS 15, oriented to person, place, time, and situation. Moves all extremities. Normal gait. 10:02 ECG was reviewed by the Attending Physician. kb Vital Signs: 09:40 BP 198 / 68; Pulse 52; Resp 16; Temp 97.1(TE); Pulse Ox 100% on R/A; Weight 65.77 kg; hb Height 5 ft. 0 in. ; Pain 8/10; 11:41 BP 187 / 68; Pulse 48; Resp 18; Temp 97.9; Pulse Ox 98% on R/A; ph 09:40 Body Mass Index 28.32 (65.77 kg, 152.4 cm) hb 09:40 Pain Scale: Adult hb [place] Coma Score: 09:49 Eye Response: spontaneous(4). Motor Response: obeys commands(6). Verbal Response: kb oriented(5). Total: 15. MDM: 09:25 Patient medically screened. kb 09:38 Data reviewed: vital signs, nurses notes. kb 11:16 Differential diagnosis: flu, covid, cva, abnormal electrolytes, dehydration. Historians kb other than the Patient: supervisory forester line used. Counseling: I had a detailed discussion with the patient and/or guardian regarding the historical points, exam findings, and any diagnostic results supporting the discharge/admit diagnosis, lab results, radiology results, the need for outpatient follow up, a family practitioner, to return to the emergency department if symptoms worsen or persist or if there are any questions or concerns that arise at home. 02/28 09:35 Order name: Basic Metabolic Panel; Complete Time: 10:30 kb 02/28 09:35 Order name: CBC with Diff; Complete Time: 10:15 kb 02/28 09:35 Order name: Hepatic Function; Complete Time: 10:30 kb 02/28 09:35 Order name: Magnesium; Complete Time: 10:30 kb 02/28 09:35 Order name: Protime (+inr); Complete Time: 10:15 kb 09 09:35 Order name: Ptt, Activated; Complete Time: 10:15 kb 02/28 09:35 Order name: Troponin High Sensitivity; Complete Time: 10:30 kb 02/28 09:36 Order name: Flu; Complete Time: 10:17 kb 02/28 09:36 Order name: SARS-COV-2 Antigen Rapid; Complete Time: 10:17 kb 02/28 09:35 Order name: CT Head Brain wo Cont; Complete Time: 10:53 kb 02/28 09:35 Order name: Chest Single View XRAY; Complete Time: 10:53 kb 02/28 09:35 Order name: EKG; Complete Time: 09:38 kb 02/28 09:35 Order name: Cardiac monitoring; Complete Time: 10:02 kb 02/28 09:35 Order name: EKG - Nurse/Tech; Complete Time: 10:02 kb 02/28 09:35 Order name: IV Saline Lock; Complete Time: 10:02 kb 02/28 09:35 Order name: Labs collected and sent; Complete Time: 10:02 kb 02/28 09:35 Order name: NPO; Complete Time: 10:02 kb 02/28 09:35 Order name: O2 Per Protocol; Complete Time: 10:02 kb 02/28 09:35 Order name: O2 Sat Monitoring; Complete Time: 10:02 kb EC:02 Rate is 47 beats/min. Rhythm is regular. QRS [place] is Normal. MI interval is normal at kb 180 msec. QRS interval is normal at 88 msec. QT interval is normal at 410 msec. Administered Medications: No medications were administered Disposition: 12:02 Co-signature as Attending Physician, Radames Joya MD I reviewed the patient's care rt provided by the Advanced Practice Provider and agree with the diagnosis and treatment plan. Disposition Summary: 02/29/24 11:17 Discharge Ordered Notes: Location: Home kb Condition: Stable kb Diagnosis - Influenza due to identified novel influenza A virus - B kb Followup: kb - With: Emergency Department - When: As needed - Reason: Worsening of condition Followup: kb - With: Private Physician - When: 2 - 3 days - Reason: Recheck today's complaints, Continuance of care, Re-evaluation by your physician Discharge Instructions: - Discharge Summary Sheet kb - Influenza, Adult, [id number] kb Forms: - Medication Reconciliation Form kb - Antibiotic Education kb - Prescription Opioid Use kb - Patient Portal Instructions kb - Leadership Thank You Letter kb Signatures: Dispatcher [employer] Venita Villasenor, Jessie Barillas RN RN [place], Radames, MD MD rt
[2024-02-29 12:13] VITALS: BP 187/68; TEMP 97.9; O2SAT 98
--- NOTE | 2024-03-02 16:59 | EKG ---
Test Date: 2024-02-29 Test Time: 09:49:41 Plastic Maker: PH MEASUREMENT RESULTS: Intervals: Rate: 47 DC: 180 QRSD: 88 QT: 464 QTc: 410 [place]: P: 47 DC: 180 QRS: 50 T: 92 INTERPRETIVE STATEMENTS: Sinus bradycardia Otherwise normal ECG Compared to ECG 07/21/2023 16:09:31 No significant changes Electronically Signed On 03-02-24 16:54:00 CDT by Selvin Cast
== END 2024-02-29 11:43 | disposition home or self-care (01) ==
LOC: ER 09:21
DX: J09.X2 Influenza due to identified novel influenza A virus with other respiratory manifestations (principal); I10 Essential (primary) hypertension; R42 Dizziness and giddiness; M25.519 Pain in unspecified shoulder; Z11.52 Encounter for screening for COVID-19
CPT/HCPCS: 36415; 70450; 71045; 80048; 80076; 83735; 84484; 85025; 85610; 85730; 87804; 87811; 93005; 99284

== ENCOUNTER 2025-03-18 11:43 | Inpatient (IN) | payer OTHER ==
[2025-03-18 12:10] LABS: Absolute Lymphocytes (CBC) 1.2 K/uL (0.7-4.9); Hematocrit 39.5 % (39.6-49.0); Hemoglobin 13.6 g/dL (13.6-17.9); MCH 33.2 pg (27.0-35.0); MCHC 34.4 g/dL (32.0-36.0); MCV 96.5 fL (80-100); MPV 9.9 fL (7.6-11.3); Nucleated RBC Absolute Count 0.0 (0-0); Nucleated Red Blood Cells % 0.1 % (0-0); RBC Red Blood Cell Count 4.09 M/uL (4.33-5.43); White Blood Count 6.10 thou/uL (4.3-10.9)
--- NOTE | 2025-03-18 12:13 | RAD REPORT ---
EXAMINATION: ONE VIEW CHEST XR CLINICAL INDICATION: COUGH TECHNIQUE: Frontal chest projection is submitted. Examination is limited by patient positioning and t echnique. COMPARISON: 02/29/2024 FINDINGS: The lungs are well inflated and clear. The heart is upper limit of normal in size. No displaced fract ures identified. IMPRESSION: No acute intrathoracic abnormalities.
[2025-03-18 12:22] LABS: PT Prothrombin Time 13.1 SECONDS (10-13.0); Protime INR 1.16
[2025-03-18 12:29] LABS: ALT/SGPT 23 U/L (16-61); AST/SGOT 17 U/L (15-37); Albumin 3.4 g/dL (3.4-5.0); Albumin/Globulin Ratio 0.9 (1.1-1.8); Alkaline Phosphatase 157 U/L (45-117); Anion Gap 10.1 mEq/L (5.0-15.0); BUN Blood Urea Nitrogen 17 mg/dL (7-18); Globulin 3.6 g/dL (2.3-3.5); Glucose Level 132 mg/dL (74-106); Magnesium 2.3 mg/dL (1.6-2.4); NT PRO-BNP 296 pg/mL (<450); Potassium 4.1 mEq/L (3.5-5.1); Troponin High Sensitivity 7.9 pg/mL (<58.9)
[2025-03-18 12:40] LABS: Bilirubin Indirect, Calculated 0.1 mg/dL (0.2-0.8)
[2025-03-18] MEDS: PANTOPRAZOLE INJ 80 MG in NA CHLORIDE 0.9% 250 ML IV SCH (13:00)
[2025-03-18] MEDS ORDERED: PANTOPRAZOLE 40 MG INJ ONE (13:06)
--- NOTE | 2025-03-18 16:07 | ER ---
Nurse's Notes [facility] Name: Frank Loo Age: 84 yrs Sex: Male : 1940 Arrival Date: 03/18/2025 Time: 11:43 Bed 6 Private MD: Diagnosis: Weakness;Bradycardia, unspecified;GI Bleed/ Gastrointestinal hemorrhage, unspecified-upper;Acute kidney failure, unspecified;Essential (primary) hypertension Presentation: 03/18 11:45 Chief complaint: EMS states: toned out to clinic in [place] for high blood pressure of me1 250/[address] elevation in 2 leads. Per EMS patient did not have ST elevation. 20g started to LFA and given nitro 0.4mg SL. BP came down to 146/66 and CP to Left chest resolved. Coronavirus screen: At this time, the client does not indicate any symptoms associated with coronavirus-19. Ebola Screen: No symptoms or risks identified at this time. Initial Sepsis Screen: Does the patient meet any 2 criteria? No. Patient's initial sepsis screen is negative. Does the patient have a suspected source of infection? No. Patient's initial sepsis screen is negative. Risk Assessment: Do you want to hurt yourself or someone else? Patient reports no desire to harm self or others. Onset of symptoms is unknown. 11:45 Method Of Arrival: EMS: [place] [facility] va1 11:45 Acuity: ANISH 3 me1 Triage Assessment: 11:48 General: Appears in no apparent distress. comfortable, Behavior is calm, cooperative, me1 appropriate for age. Pain: Complains of pain in anterior aspect of left upper chest Pain radiates to left subscapular area Pain currently is 2 out of 10 on a pain scale. Quality of pain is described as pressure, Pain began gradually, Is continuous. EENT: No signs and/or symptoms were reported regarding the EENT system. Neuro: Level of Consciousness is awake, alert, obeys commands, Oriented to person, place, time, situation, Appropriate for age. Cardiovascular: Reports chest pain, Patient's skin is warm and dry. Respiratory: Airway is patent Respiratory effort is even, unlabored, Respiratory pattern is regular, symmetrical. GI: No signs and/or symptoms were reported involving the gastrointestinal system. : No signs and/or symptoms were reported regarding the genitourinary system. Derm: Skin is intact, is healthy with good turgor, Skin is pink, warm \T\ dry. Musculoskeletal: Circulation, motion, and sensation intact. Range of motion: intact in all extremities. Historical: - Allergies: 11:48 No Known Allergies; me1 - PMHx: 11:48 Arthritis; Hypertension; me1 12:00 gastritis; hiatal hernia; aa5 - Immunization history:: Adult Immunizations up to date. - Infectious Disease History:: Denies. - Social history:: Smoking status: unknown. Screenin:50 [facility] ED Fall Risk Assessment (Adult) History of falling in the last 3 months, me1 including since admission No falls in past 3 months (0 pts) Confusion or Disorientation No (0 pts) Intoxicated or Sedated No (0 pts) Impaired Gait No (0 pts) Mobility Assist Device Used No (0 pt) Altered Elimination No (0 pt) Score/Fall Risk Level 0 - 2 = Low Risk Maintained a safe environment, Provided non-skid footwear, Hourly rounding (assess needs \T\ fall precautionary measures) done. Abuse screen: Denies threats or abuse. Nutritional screening: No deficits noted. Tuberculosis screening: No symptoms or risk factors identified. Assessment: 11:50 General: See triage assessment. me1 12:00 General: Appears comfortable, Behavior is calm, cooperative. Pain: Complains of pain in aa5 anterior aspect of left upper chest Pain radiates to left shoulder and left arm Quality of pain is described as numb, Pain began 1 month ago Is intermittent. Neuro: Level of Consciousness is awake, alert, obeys commands, Oriented to person, place, time, situation. Cardiovascular: Heart tones S1 S2 present Rhythm is sinus bradycardia. Respiratory: Airway is patent Respiratory effort is even, unlabored, Respiratory pattern is regular, symmetrical. GI: Abdomen is round non-distended, Bowel sounds present X 4 quads. Abd is soft X 4 quads Abdomen is tender to palpation in epigastric area Reports episode of black stool this morning Patient currently denies nausea, vomiting. : No signs and/or symptoms were reported regarding the genitourinary system. EENT: No signs and/or symptoms were reported regarding the EENT system. Derm: Skin is pink, warm \T\ dry. Musculoskeletal: Range of motion: intact in all extremities. 14:00 Reassessment: Patient is alert, oriented x 3, equal unlabored respirations, skin aa5 warm/dry/pink. 15:00 Reassessment: Patient is alert, oriented x 3, equal unlabored respirations, skin aa5 warm/dry/pink. 17:00 Reassessment: Patient is alert, oriented x 3, equal unlabored respirations, skin aa5 warm/dry/pink. 18:15 Reassessment: Patient is alert, oriented x 3, equal unlabored respirations, skin aa5 warm/dry/pink. Vital Signs: 11:45 BP 182 / 82; Pulse 51; Resp 18; Temp 98.3; Pulse Ox 100% ; me1 12:20 BP 159 / 71; Pulse 48; Resp 16 S; Pulse Ox 98% on R/A; aa5 14:00 BP 159 / 65; Pulse 48; Resp 18 S; Pulse Ox 99% on R/A; aa5 15:15 BP 164 / 102; Pulse 48; Resp 16 S; Pulse Ox 100% on R/A; aa5 17:00 BP 164 / 67; Pulse 48; Resp 16 S; Temp 97.9(TE); Pulse Ox 100% on R/A; nh2 ED Course: 11:45 Patient arrived in ED. me1 11:46 Jacob Holland MD is Attending Physician. [facility] [place] 11:48 Triage completed. me1 11:48 Arm band placed on Patient placed in an exam room. me1 11:50 Patient has correct armband on for positive identification. Bed in low position. Call me1 light in reach. Side rails up X2. Provided Education on: POC. Verbalized understanding.. Client placed on continuous cardiac and pulse oximetry monitoring. NIBP monitoring applied. shelter monitor on. Pulse ox on. NIBP on. 11:50 No provider procedures requiring assistance completed. Maintain EMS IV. Dressing me1 intact. Good blood return noted. Site clean \T\ dry. Gauge \T\ site: 20g LFA. Flushed with 10 mL NS. 11:57 Senait Noriega, PEMA is Primary Nurse. aa5 12:01 Basic Metabolic Panel Sent. me1 12:01 CBC with Diff Sent. me1 12:01 LFT's Sent. me1 12:01 Magnesium Sent. me1 12:01 NT PRO-BNP Sent. me1 12:01 PT-INR Sent. me1 12:01 Troponin HS Sent. me1 12:05 XRAY Chest (1 view) In Process Unspecified. EDMS 16:03 Shonda Castro MD is Hospitalizing Provider. [facility] [place] 18:15 Patient admitted, IV remains in place. aa5 Administered Medications: 13:05 Drug: Pantoprazole IVP 80 mg IVP once Route: IVP; Site: left forearm; aa5 13:15 Follow up: Response: No adverse reaction aa5 13:12 Drug: Pantoprazole IV 8 mg/hr IV at 25 ml/hr continuous; (Standard dilution is 80 mg in aa5 250 mL NS) Route: IV; Rate: 25 ml/hr; Site: left forearm; 18:15 Follow up: IV Status: Infusion continued upon admission aa5 Medication: 11:50 VIS not applicable for this client. me1 Outcome: 16:07 Decision to Hospitalize by Provider. [facility] [place] 18:15 Admitted to Med/surg accompanied by tech, via wheelchair, with chart, aa5 18:15 Condition: stable 18:15 Instructed on the need for admit, Demonstrated understanding of instructions, 18:23 Patient left the ED. aa5 Signatures: Dispatcher [employer] EDPR Jacob Holland MD MD cha Calderon, Audri, RN RN aa5 Jaki Littlejohn, RN RN me1 Marcel Kauffman Jr RN RN nh2
--- NOTE | 2025-03-18 16:07 | EDPHYS ---
Physician Documentation [facility] Name: Frank Loo Age: 84 yrs Sex: Male : 1940 Arrival Date: 03/18/2025 Time: 11:43 Bed 6 Private MD: ED Physician Jacob Holland HPI: 03/18 15:53 This 84 yrs old Male presents to ER via EMS with complaints of High Blood tricia Pressure. 15:53 The patient has elevated blood pressure and discovered this at home. tricia Historical: - Allergies: 11:48 No Known Allergies; me1 - PMHx: 11:48 Arthritis; Hypertension; me1 12:00 gastritis; hiatal hernia; aa5 - Immunization history:: Adult Immunizations up to date. - Infectious Disease History:: Denies. - Social history:: Smoking status: unknown. ROS: 15:54 Constitutional: Negative for fever, chills, and weight loss, Eyes: Negative for injury, tricia pain, redness, and discharge, ENT: Negative for injury, pain, and discharge, Neck: Negative for injury, pain, and swelling, Cardiovascular: Negative for chest pain, palpitations, and edema, Respiratory: Negative for shortness of breath, cough, wheezing, and pleuritic chest pain, Back: Negative for injury and pain, : Negative for injury, bleeding, discharge, and swelling, MS/Extremity: Negative for injury and deformity, Skin: Negative for injury, rash, and discoloration, Neuro: Negative for headache, weakness, numbness, tingling, and seizure, Psych: Negative for depression, anxiety, suicide ideation, homicidal ideation, and hallucinations, Allergy/Immunology: Negative for hives, rash, and allergies, Endocrine: Negative for neck swelling, polydipsia, polyuria, polyphagia, and marked weight changes, Hematologic/Lymphatic: Negative for swollen nodes, abnormal bleeding, and unusual bruising, 15:54 Abdomen/GI: Positive for black/tarry stool, 15:54 MS/extremity: Negative for acute changes, Exam: 15:54 Constitutional: This is a well developed, well nourished patient who is awake, alert, tricia and in no acute distress. Head/Face: Normocephalic, atraumatic. Eyes: Pupils equal round and reactive to light, extra-ocular motions intact. Lids and lashes normal. Conjunctiva and sclera are non-icteric and not injected. Cornea within normal limits. Periorbital areas with no swelling, redness, or edema. ENT: Nares patent. No nasal discharge, no septal abnormalities noted. Tympanic membranes are normal and external auditory canals are clear. Oropharynx with no redness, swelling, or masses, exudates, or evidence of obstruction, uvula midline. Mucous membranes moist. Neck: Trachea midline, no thyromegaly or masses palpated, and no cervical lymphadenopathy. Supple, full range of motion without nuchal rigidity, or vertebral point tenderness. No Meningismus. Chest/axilla: Normal chest wall appearance and motion. Nontender with no deformity. No lesions are appreciated. Respiratory: Lungs have equal breath sounds bilaterally, clear to auscultation and percussion. No rales, rhonchi or wheezes noted. No increased work of breathing, no retractions or nasal flaring. Back: No spinal tenderness. No costovertebral tenderness. Full range of motion. Male : Normal genitalia with no discharge or lesions. Skin: Warm, dry with normal turgor. Normal color with no rashes, no lesions, and no evidence of cellulitis. MS/ Extremity: Pulses equal, no cyanosis. Neurovascular intact. Full, normal range of motion., bilateral aka Neuro: Awake and alert, GCS 15, oriented to person, place, time, and situation. Cranial nerves II-XII grossly intact. Motor strength 5/5 in all extremities. Sensory grossly intact. Cerebellar exam normal. Normal gait. Psych: Awake, alert, with orientation to person, place and time. Behavior, mood, and affect are within normal limits. 15:54 Cardiovascular: Rate: bradycardic, actual rate is 48 bpm, Rhythm: regular, Pulses: Pulses are 4+ in bilateral radial, brachial, femoral, popliteal, posterior tibial and and dorsalis pedis arteries.. Heart sounds: normal, Edema: is not appreciated, JVD: is not appreciated, 15:54 ECG was reviewed by the Attending Physician. Vital Signs: 11:45 BP 182 / 82; Pulse 51; Resp 18; Temp 98.3; Pulse Ox 100% ; me1 12:20 BP 159 / 71; Pulse 48; Resp 16 S; Pulse Ox 98% on R/A; aa5 14:00 BP 159 / 65; Pulse 48; Resp 18 S; Pulse Ox 99% on R/A; aa5 15:15 BP 164 / 102; Pulse 48; Resp 16 S; Pulse Ox 100% on R/A; aa5 17:00 BP 164 / 67; Pulse 48; Resp 16 S; Temp 97.9(TE); Pulse Ox 100% on R/A; nh2 MDM: 11:46 Medical Screening Exam initiated tricia 16:08 Differential diagnosis: hypertensive crisis, Malignant HTN. Data reviewed: vital signs, [facility] nurses notes, lab test result(s), EKG, radiologic studies, CT scan, plain films. Consideration of Admission/Observation Patient was admitted/placed on observation. Escalation of care including admission/observation considered. I considered the following discharge prescriptions or medication management in the emergency department Medications were administered in the Emergency Department. See MAR. Independent interpretation of the following test(s) in the Emergency Department EKG: See my EKG interpretation above. Test considered but Not performed: Ultrasound no abd usg. Care significantly affected by the following chronic conditions: Hypertension, oa, gastritis, hiatal hernia. 03/18 11:47 Order name: Basic Metabolic Panel; Complete Time: 15:46 [facility] 03/18 11:47 Order name: CBC with Diff; Complete Time: 15:46 [facility] 03/18 11:47 Order name: LFT's; Complete Time: 15:46 [facility] 03/18 11:47 Order name: Magnesium; Complete Time: 15:46 [facility] 03/18 11:47 Order name: NT PRO-BNP; Complete Time: 15:46 [facility] 03/18 11:47 Order name: PT-INR; Complete Time: 15:46 [facility] 03/18 11:47 Order name: Troponin HS; Complete Time: 15:46 [facility] 03/18 11:47 Order name: UA Rfx Nate Cult if indicated [facility] 03/18 12:08 Order name: Type And Screen; Complete Time: 15:46 [facility] 03/18 12:08 Order name: Lipase; Complete Time: 15:46 [facility] 03/18 13:15 Order name: ABO/RH no charge; Complete Time: 15:46 EDMS 03/18 16:25 Order name: CBC with Automated Diff [facility] 03/18 16:25 Order name: CBC with Automated Diff EDMS 03/18 16:25 Order name: CBC with Automated Diff EDMS 03/18 16:25 Order name: CBC with Automated Diff [facility] 03/18 16:25 Order name: Comprehensive Metabolic Panel [facility] 03/18 16:25 Order name: Comprehensive Metabolic Panel [facility] 03/18 16:25 Order name: Comprehensive Metabolic Panel [facility] 03/18 16:25 Order name: Comprehensive Metabolic Panel [facility] 03/18 11:47 Order name: XRAY Chest (1 view); Complete Time: 15:46 [facility] 03/18 11:47 Order name: Cardiac monitoring; Complete Time: 12:02 [facility] 03/18 11:47 Order name: EKG - Nurse/Tech; Complete Time: 12:02 [facility] 03/18 11:47 Order name: IV Saline Lock; Complete Time: 11:51 [facility] 03/18 11:47 Order name: Labs collected and sent; Complete Time: 12:01 [facility] 03/18 11:47 Order name: O2 Per Protocol; Complete Time: 11:51 [facility] 03/18 11:47 Order name: O2 Sat Monitoring; Complete Time: 11:51 [facility] 03/18 12:08 Order name: IV Saline Lock - Large Bore; Complete Time: 12:20 [facility] EC:54 Rate is 49 beats/min. Rhythm is regular. QRS [place] is Normal. [place] interval is normal. QRS tricia interval is normal. QT interval is normal. No Q waves. T waves are Normal. No ST changes noted. Clinical impression: Sinus bradycardia. Interpreted by me. Reviewed by me. Administered Medications: 13:05 Drug: Pantoprazole IVP 80 mg IVP once Route: IVP; Site: left forearm; aa5 13:15 Follow up: Response: No adverse reaction aa5 13:12 Drug: Pantoprazole IV 8 mg/hr IV at 25 ml/hr continuous; (Standard dilution is 80 mg in aa5 250 mL NS) Route: IV; Rate: 25 ml/hr; Site: left forearm; 18:15 Follow up: IV Status: Infusion continued upon admission aa5 Disposition Summary: 03/18/25 16:07 Hospitalization Ordered Notes: Hospitalization Status: Observation tricia Provider: Shonda Castro cha Location: Telemetry/MedSurg (observation) tricia Condition: Fair tricia Problem: new tricia Symptoms: have improved tricia Bed/Room Type: Standard tricia Room Assignment: 218(03/18/25 16:49) ja1 Diagnosis - Weakness tricia - Bradycardia, unspecified tricia - GI Bleed/ Gastrointestinal hemorrhage, unspecified - upper tricia - Acute kidney failure, unspecified tricia - Essential (primary) hypertension tricia Forms: - Medication Reconciliation Form tricia - SBAR form tricia - Leadership Thank You Letter tricia Signatures: Dispatcher [employer] EDJacob Kevin MD MD cha Calderon, Audri, RN RN aa5 Frank Natarajan, RN RN ja1 Kelley Joseph Michelle RN RN me1 Corrections: (The following items were deleted from the chart) 11:47 11:47 BASIC METABOLIC PANEL+C.LAB.BRZ ordered. EDMS EDMS 11:47 11:47 CBC+H.LAB.BRZ ordered. EDMS EDMS 11:47 11:47 HEPATIC FUNCTION+C.LAB.BRZ ordered. EDMS EDMS 11:47 11:47 MAGNESIUM+C.LAB.BRZ ordered. EDMS EDMS 11:47 11:47 PROBNP+C.LAB.BRZ ordered. EDMS EDMS 11:47 11:47 PROTIME (+INR)+COAG.LAB.BRZ ordered. EDMS EDMS 11:47 11:47 Troponin High Sensitivity+C.LAB.BRZ ordered. EDMS EDMS 11:47 11:47 UA Rfx Nate Cult if indicated+U.LAB.BRZ ordered. EDMS EDMS 11:47 11:47 Chest Single View+RAD.RAD.BRZ ordered. EDMS EDMS 16:43 16:07 tricia eb 16:49 16:43 223 eb ja1
[2025-03-18] MEDS ORDERED: ALBUTEROL 2.5 MG/3 ML NEB SOL NEB PRN (16:21)
--- NOTE | 2025-03-18 16:36 | P.HP ---
Patient History Date of Service: 03/18/25 History of Present Illness: 84-year-old male with a past medical history of hypertension, arthritis, gastritis presenting with complaints of high blood pressure. History was obtained via phone development coordinator. He states he was at a clinic in [place] where they were concerned he was having a stroke. They called the ambulance and brought him to the hospital for further evaluation. He states he has been having bloody stools for the last 2 to 3 days. He denies fevers but endorses chills. He denies any focal weakness, slurred speech. He has not been sick recently or had any changes in medication. He denies illicit drug use. Allergies No Known Allergies Allergy (Verified 06/07/16 08:57) Home Medications: Clopidogrel Bisulfate [Plavix] 75 mg PO DAILY 06/06/16 Losartan Potassium 50 mg PO BID 06/06/16 Tamsulosin [Flomax*] 0.4 mg PO DAILY 06/06/16 allopurinoL [Allopurinol] 100 mg PO DAILY 06/06/16 Atorvastatin Calcium [Lipitor*] 20 mg PO BEDTIME #30 tab 06/07/16 - Past Medical/Surgical History Diabetic: No -: HTN -: Arthritis -: hernia repair - Family History Mother -: Heart disease, Hypertension Sister -: Hypertension Notes: both sisters - Social History Alcohol use: No CD- Drugs: No Caffeine use: Yes Review of Systems General: Unremarkable Eyes: Unremarkable ENT: Unremarkable Respiratory: Unremarkable Cardiovascular: Unremarkable Gastrointestinal: Melena Genitourinary: Unremarkable Musculoskeletal: Unremarkable Integumentary: Unremarkable Physical Examination - Physical Exam General: In no apparent distress HEENT: Atraumatic Neck: Supple Respiratory: Clear to auscultation bilaterally Cardiovascular: No edema Capillary refill: <2 Seconds Gastrointestinal: Normal bowel sounds Musculoskeletal: No swelling Integumentary: No rashes Neurological: Normal speech - Studies Laboratory Data (last 24 hrs) 03/18/25 03/18/25 03/18/25 12:15 11:57 11:57 WBC 6.10 Hgb 13.6 Hct 39.5 L Plt Count 183 PT 13.1 H INR 1.16 Sodium Potassium BUN Creatinine Glucose Magnesium Total Bilirubin AST ALT Alkaline Phosphatase Lipase 03/18/25 11:57 WBC Hgb Hct Plt Count PT INR Sodium 138 Potassium 4.1 BUN 17 Creatinine 1.47 H Glucose 132 H Magnesium 2.3 Total Bilirubin 0.3 AST 17 ALT 23 Alkaline Phosphatase 157 H Lipase Assessment and Plan - Plan Hypertensive urgency Melena Sinus bradycardia Arthritis Gastritis Admit to floor Clear liquid diet for now He has a EGD report by Dr. 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 He has seen Dr. Long in the past. continue Protonix Continue allopurinol DVT prophylaxis with SCDs - Advance Directives Does patient have a Living Will: No Does patient have a Durable POA for Healthcare: No
[2025-03-18 18:32] VITALS: O2SAT 100
[2025-03-18] MEDS: NA CHLORIDE 0.9% 1,000 ML IV SCH (19:41)
[2025-03-18] MEDS: LOSARTAN POTASSIUM 50 MG TABLET PO SCH (19:56)
[2025-03-18] MEDS: ATORVASTATIN 20 MG TAB PO SCH (19:56)
[2025-03-18 21:52] VITALS: BMI 24.1
[2025-03-18] MEDS: HYDRALAZINE HCL 20 MG/ML VIAL IV ONE (23:16)
[2025-03-19] MEDS: hydrOXYzine HCL 25 MG TAB PO PRN (01:52)
[2025-03-19] MEDS: AMLODIPINE 5 MG TAB PO ONE (01:53)
[2025-03-19 03:15] LABS: Urine Microscopic Reflex YN NO UMIC
[2025-03-19] MEDS: MORPHINE 2 MG/ML SYR IV PRN (05:24)
[2025-03-19] MEDS: ONDANSETRON 4 MG/2 ML VIAL IV PRN (05:31)
[2025-03-19 06:12] LABS: Absolute Lymphocytes (CBC) 1.4 K/uL (0.7-4.9); Hematocrit 40.1 % (39.6-49.0); Hemoglobin 13.8 g/dL (13.6-17.9); MCH 32.9 pg (27.0-35.0); MCHC 34.5 g/dL (32.0-36.0); MCV 95.2 fL (80-100); MPV 10.5 fL (7.6-11.3); Nucleated RBC Absolute Count 0.0 (0-0); Nucleated Red Blood Cells % 0.1 % (0-0); RBC Red Blood Cell Count 4.21 M/uL (4.33-5.43); White Blood Count 7.50 thou/uL (4.3-10.9)
[2025-03-19 06:30] LABS: ALT/SGPT 21.0 U/L (16-61); AST/SGOT 11.0 U/L (15-37); Albumin 3.2 g/dL (3.4-5.0); Albumin/Globulin Ratio 0.9 (1.1-1.8); Alkaline Phosphatase 159.0 U/L (45-117); Anion Gap 10.1 mEq/L (5.0-15.0); BUN Blood Urea Nitrogen 13.0 mg/dL (7-18); Globulin 3.4 g/dL (2.3-3.5); Glucose Level 103.0 mg/dL (74-106); Potassium 4.1 mEq/L (3.5-5.1)
[2025-03-19] MEDS ORDERED: PNEUMOCOCCAL VACCINE 0.5 ML IMVAC ONE (08:00)
--- NOTE | 2025-03-19 08:32 | RAD REPORT ---
EXAM: CT brain without contrast HISTORY: TIA COMPARISON: 2023 TECHNIQUE: Multiple contiguous axial images were obtained and a CT of the brain without contrast.. Sagittal and coronal reconstruction performed. Automated exposure control, adjustment of the mA and/or kV according to patient size, and/or iterative reconstruction. Unless otherwise specified, incidental f indings do not require dedicated imaging follow-up FINDINGS: An intracranial bleed is not seen Ventricles are normal caliber No extra-axial fluid collection noted Small low-density right ashley radiata unchanged probably small old infarct. No fluid within the visualized sinuses or mastoids noted. IMPRESSION: No acute intracranial abnormality noted. If the patient continues to have symptoms to suggest an acute intracranial abnormality then MRI of th e brain would be recommended.
[2025-03-19] MEDS ORDERED: PRAZOSIN HCL 1 MG CAP PO SCH (09:00)
[2025-03-19] MEDS ORDERED: TAMSULOSIN 0.4 MG SR CAP PO SCH (09:00)
[2025-03-19] MEDS ORDERED: AMLODIPINE 5 MG TAB PO SCH (09:00)
[2025-03-19] MEDS: PANTOPRAZOLE INJ 80 MG in NA CHLORIDE 0.9% 250 ML IV SCH (12:13)
[2025-03-19] MEDS ORDERED: IBUPROFEN 400 MG TAB PO PRN (13:00)
--- NOTE | 2025-03-19 13:11 | P.PN ---
Date of Service: 03/19/25 Subjective: Complains of headache this morning. Denies any focal weakness, vision changes, slurred speech. We discussed his high blood pressure. He states he used to smoke a long time ago for maybe about 5 years. He denies drinking on a regular basis. He has not had a bowel movement yet this admission. Elevated blood pressures overnight Review of Systems General: Unremarkable Eyes: Unremarkable ENT: Unremarkable Respiratory: Unremarkable Cardiovascular: Unremarkable Gastrointestinal: Melena Genitourinary: Unremarkable Musculoskeletal: Unremarkable Integumentary: Unremarkable Physical Examination - Physical Exam General: In no apparent distress HEENT: Atraumatic Neck: Supple Respiratory: Clear to auscultation bilaterally Cardiovascular: No edema Capillary refill: <2 Seconds Gastrointestinal: Normal bowel sounds Musculoskeletal: No swelling Integumentary: No rashes Neurological: Normal speech - Studies Laboratory Data (last 24 hrs) 03/18/25 03/18/25 03/18/25 12:15 11:57 11:57 WBC 6.10 Hgb 13.6 Hct 39.5 L Plt Count 183 PT 13.1 H INR 1.16 Sodium Potassium BUN Creatinine Glucose Magnesium Total Bilirubin AST ALT Alkaline Phosphatase Lipase 03/18/25 11:57 WBC Hgb Hct Plt Count PT INR Sodium 138 Potassium 4.1 BUN 17 Creatinine 1.47 H Glucose 132 H Magnesium 2.3 Total Bilirubin 0.3 AST 17 ALT 23 Alkaline Phosphatase 157 H Lipase Assessment and Plan - Plan Hypertensive urgency Melena Sinus bradycardia Arthritis Gastritis 03/19 - CT head with no evidence of acute stroke - Hemoglobin remained stable, he reports no episodes of GI bleeding - Add hydrochlorothiazide twice daily alongside spironolactone for uncontrolled blood pressures - Continue losartan, amlodipine - Hydralazine as needed for SBP greater than 170 - Cannot use beta-blockers due to heart rate being low - Obtain CTA head and neck and MRI of the brain Admit to floor Clear liquid diet for now He has a EGD report by Dr. 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 He has seen Dr. Long in the past. continue Protonix Continue allopurinol DVT prophylaxis with SCDs - Advance Directives Does patient have a Living Will: No Does patient have a Durable POA for Healthcare: No
--- NOTE | 2025-03-19 17:32 | RAD REPORT ---
EXAMINATION: CTA HEAD CLINICAL INDICATION: Headache. Possible CVA TECHNIQUE: Axial CT images were obtained through the head after 100 cc Isovue-370 intravenous contras t utilizing angiographic protocol with 3D post-processing (maximum intensity projection images, volume rendered images and/or shaded surface rendered images). One or more of the following dose red uction techniques were used: Automated exposure control, adjustment of the mA and/or kV according to patient size, and/or iterative reconstruction. Unless otherwise specified, incidental findings do not require dedicated imaging follow-up. COMPARISON: None FINDINGS: Distal left internal carotid artery is moderately narrowed.. A short segment of the distal left inter nal carotid artery is markedly narrowed. Left middle cerebral artery mildly diminished in size compared to the right but is patent. Anterior cerebral, right middle cerebral and left posterior cerebral arteries without significant jairo nosis. Mild narrowing proximal right posterior cerebral artery Mild stenosis basilar artery. An aneurysm not noted. IMPRESSION: Most of the distal left internal carotid artery moderately narrowed. Short segment marked narrowing o f the distal left internal carotid artery
--- NOTE | 2025-03-19 17:32 | RAD REPORT ---
EXAMINATION: Neck Angio CLINICAL INDICATION: Headache. Possible CVA. TECHNIQUE: Axial CT images were obtained from the aortic arch to the skull base after intravenous adm inistration of 100 cc Isovue-370 utilizing angiographic protocol. Multiplanar reformats, as well as 3D post-processing (maximum intensity projection images, volume rendered images and/or shaded surface rendered images) were generated and reviewed. One or more of the following dose reduction techniques were used: Automated exposure control, adjustment of the mA and/or kV according to patient size, and/or iterative reconstruction. Unless otherwise specified, incidental findings do not require dedicated imaging follow-up. COMPARISON: 2016 carotid ultrasound. 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 Plaque within the proximal le ft subclavian artery results in a high-grade stenosis. Plaque within the proximal left internal carotid artery results in an occlusion. Most of the distal l eft internal carotid artery is occluded. A portion of the distal left internal carotid artery is patent but markedly narrowed. Calcified plaque proximal left internal carotid artery results in a severe stenosis. Left vertebral artery unremarkable The entire right vertebral artery is markedly narrowed and poorly opacified. Mild plaque within the common and external carotid arteries Methods for NASCET criteria: Mild stenosis, 0% to 49%; Moderate stenosis 50% to 69%; Severe stenosis, 70% to 99% IMPRESSION: Occlusion of most of the left internal carotid artery. Portion of the distal left internal carotid ar ira is opacified and markedly narrowed. Calcified plaque proximal right internal carotid artery resulting in approximately 98% stenosis Right vertebral artery is markedly narrowed and poorly opacified probably secondary to chronic dissec tion rather than it being hypoplastic
[2025-03-19] MEDS: TAMSULOSIN 0.4 MG SR CAP PO SCH (20:25)
[2025-03-19] MEDS: AMLODIPINE 10 MG TAB PO SCH (22:42)
[2025-03-20 04:39] LABS: Absolute Lymphocytes (CBC) 1.7 K/uL (0.7-4.9); Hematocrit 41.0 % (39.6-49.0); Hemoglobin 13.9 g/dL (13.6-17.9); MCH 32.7 pg (27.0-35.0); MCHC 34.0 g/dL (32.0-36.0); MCV 96.1 fL (80-100); MPV 10.0 fL (7.6-11.3); Nucleated RBC Absolute Count 0.0 (0-0); Nucleated Red Blood Cells % 0.1 % (0-0); RBC Red Blood Cell Count 4.27 M/uL (4.33-5.43); White Blood Count 7.00 thou/uL (4.3-10.9)
[2025-03-20 04:55] LABS: ALT/SGPT 15.0 U/L (16-61); AST/SGOT 12.0 U/L (15-37); Albumin 3.3 g/dL (3.4-5.0); Albumin/Globulin Ratio 1.0 (1.1-1.8); Alkaline Phosphatase 164.0 U/L (45-117); Anion Gap 11.0 mEq/L (5.0-15.0); BUN Blood Urea Nitrogen 11.0 mg/dL (7-18); Globulin 3.3 g/dL (2.3-3.5); Glucose Level 93.0 mg/dL (74-106); Potassium 4.0 mEq/L (3.5-5.1)
--- NOTE | 2025-03-20 07:33 | P.PN ---
Date of Service: 03/20/25 Subjective: He is in agreement to transfer to [facility] for further evaluation of his left and right ICA stenosis. Endorses dizziness. Denies fevers and chills Review of Systems General: Unremarkable Eyes: Unremarkable ENT: Unremarkable Respiratory: Unremarkable Cardiovascular: Unremarkable Gastrointestinal: Melena Genitourinary: Unremarkable Musculoskeletal: Unremarkable Integumentary: Unremarkable Physical Examination - Physical Exam General: In no apparent distress HEENT: Atraumatic Neck: Supple Respiratory: Clear to auscultation bilaterally Cardiovascular: No edema Capillary refill: <2 Seconds Gastrointestinal: Normal bowel sounds Musculoskeletal: No swelling Integumentary: No rashes Neurological: Normal speech - Studies Laboratory Data (last 24 hrs) 03/18/25 03/18/25 03/18/25 12:15 11:57 11:57 WBC 6.10 Hgb 13.6 Hct 39.5 L Plt Count 183 PT 13.1 H INR 1.16 Sodium Potassium BUN Creatinine Glucose Magnesium Total Bilirubin AST ALT Alkaline Phosphatase Lipase 03/18/25 11:57 WBC Hgb Hct Plt Count PT INR Sodium 138 Potassium 4.1 BUN 17 Creatinine 1.47 H Glucose 132 H Magnesium 2.3 Total Bilirubin 0.3 AST 17 ALT 23 Alkaline Phosphatase 157 H Lipase Assessment and Plan - Plan Hypertensive urgency Melena Sinus bradycardia Arthritis Gastritis 03/20 - Head and neck CTA revealing critical string stenosis of the left ICA and critical stenosis of the right ICA. Will transfer to [facility] per Dr. Morales recommendations - Consult nephrology to assist with blood pressure control and acute kidney injury - Continue telemetry for sinus bradycardia. Unable to use beta-darlyn due to low heart rate - Resume home blood pressure medication 03/19 - CT head with no evidence of acute stroke - Hemoglobin remained stable, he reports no episodes of GI bleeding - Add hydrochlorothiazide twice daily alongside spironolactone for uncontrolled blood pressures - Continue losartan, amlodipine - Hydralazine as needed for SBP greater than 170 - Cannot use beta-blockers due to heart rate being low - Obtain CTA head and neck and MRI of the brain Admit to floor Clear liquid diet for now He has a EGD report by Dr. 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 He has seen Dr. Long in the past. continue Protonix Continue allopurinol DVT prophylaxis with SCDs - Advance Directives Does patient have a Living Will: No Does patient have a Durable POA for Healthcare: No
[2025-03-20] MEDS: PANTOPRAZOLE 40 MG INJ ONE (08:09)
[2025-03-20] MEDS: SPIRONOLACTONE 25 MG TABLET PO SCH (08:12)
[2025-03-20 08:58] VITALS: TEMP 98.3
[2025-03-20] MEDS ORDERED: AMLODIPINE 5 MG TAB PO SCH (09:00)
--- NOTE | 2025-03-20 10:19 | P.CNS ---
Date of Consult: 03/20/25 Reason for Consult: CKD/ HTN Requesting Physician: Shonda Castro Chief Complaint: High Blood Pressure History of Present Illness: 84-year-old male with a past medical history of hypertension, arthritis, gastritis presenting with complaints of high blood pressure. History was obtained via phone historical interpreter. He states he was at a clinic in [place] where they were concerned he was having a stroke. They called the ambulance and broug ht him to the hospital for further evaluation. He states he has been having bloody stools for the last 2 to 3 days. He denies fevers but endorses chills. He denies any focal weakness, slurred speech. He has not been sick recently or had any changes in medication. He denies illicit drug use. 15:53 This 84 yrs old Male presents to ER via EMS with complaints of High Blood tricia Pressure. 15:53 The patient has elevated blood pressure and discovered this at home. Denies difficulty with urination. Denies NSAIDs. Allergies No Known Allergies Allergy (Verified 06/07/16 08:57) Home medications list reviewed: Yes Home Medications: Clopidogrel Bisulfate [Plavix] 75 mg PO DAILY 06/06/16 Losartan Potassium 50 mg PO BID 06/06/16 Tamsulosin [Flomax*] 0.4 mg PO DAILY 06/06/16 allopurinoL [Allopurinol] 100 mg PO DAILY 06/06/16 Atorvastatin Calcium [Lipitor*] 20 mg PO BEDTIME #30 tab 06/07/16 - Past Medical/Surgical History Diabetic: No -: HTN -: CKD III (Dr. Daugherty/Lul) -: BPH -: Gout -: PAD/ Carotid Stenosis -: hernia repair -: Prostate cancer - Family History Mother Medical History: Heart disease, Hypertension, Seizures Sister Medical History: Hypertension Notes: both sisters - Social History Smoking Status: Current every day smoker, Current some day smoker, Unknown if ever smoked Alcohol use: No CD- Drugs: No Caffeine use: No Review of Systems 10-point ROS is otherwise unremarkable Gastrointestinal: Constipation Physical Examination Temp Pulse Resp BP Pulse Ox 98.3 F 51 16 185/75 H 95 03/20/25 08:00 03/20/25 08:12 03/20/25 08:00 03/20/25 08:12 03/20/25 08:00 General: In no apparent distress, Oriented x3, Cooperative HEENT: Atraumatic Neck: Supple Respiratory: Clear to auscultation bilaterally Cardiovascular: No edema, Regular rate/rhythm Gastrointestinal: Soft and benign, Non-distended Musculoskeletal: No clubbing, No contractures Integumentary: No rashes, No cyanosis Neurological: Normal speech Blood work reviewed in the chart. Imagings Data: EXAMINATION: ONE VIEW CHEST XR CLINICAL INDICATION: COUGH TECHNIQUE: Frontal chest projection is submitted. Examination is limited by patient positioning and technique. COMPARISON: 02/29/2024 FINDINGS: The lungs are well inflated and clear. The heart is upper limit of normal in size. No displaced fractures identified. IMPRESSION: No acute intrathoracic abnormalities. CLINICAL INDICATION: Headache. Possible CVA. TECHNIQUE: Axial CT images were obtained from the aortic arch to the skull base after intravenous administration of 100 cc Isovue-370 utilizing angiographic protocol. Multiplanar reformats, as well as 3D post-processing (maximum intensity projection images, volume rendered images and/or shaded surface rendered images) were generated and reviewed. One or more of the following dose reduction techniques were used: Automated exposure control, adjustment of the mA and/or kV according to patient size, and/or iterative reconstruction. Unless otherwise specified, incidental findings do not require dedicated imaging follow-up. COMPARISON: 2015 carotid ultrasound. 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 Plaque within the proximal left subclavian artery results in a high-grade stenosis. Plaque within the proximal left internal carotid artery results in an occlusion. Most of the distal left internal carotid artery is occluded. A portion of the distal left internal carotid artery is patent but markedly narrowed. Calcified plaque proximal left internal carotid artery results in a severe stenosis. Left vertebral artery unremarkable The entire right vertebral artery is markedly narrowed and poorly opacified. Mild plaque within the common and external carotid arteries Methods for NASCET criteria: Mild stenosis, 0% to 49%; Moderate stenosis 50% to 69%; Severe stenosis, 70% to 99% IMPRESSION: Occlusion of most of the left internal carotid artery. Portion of the distal left internal carotid artery is opacified and markedly narrowed. Calcified plaque proximal right internal carotid artery resulting in approximately 98% stenosis Right vertebral artery is markedly narrowed and poorly opacified probably secondary to chronic dissection rather than it being hypoplastic EXAMINATION: CTA HEAD CLINICAL INDICATION: Headache. Possible CVA TECHNIQUE: Axial CT images were obtained through the head after 100 cc Isovue- 370 intravenous contrast utilizing angiographic protocol with 3D post-processing (maximum intensity projection images, volume rendered images and/or shaded surface rendered images). One or more of the following dose reduction techniques were used: Automated exposure control, adjustment of the mA and/or kV according to patient size, and/or iterative reconstruction. Unless otherwise specified, incidental findings do not require dedicated imaging follow-up. COMPARISON: None FINDINGS: Distal left internal carotid artery is moderately narrowed.. A short segment of the distal left internal carotid artery is markedly narrowed. Left middle cerebral artery mildly diminished in size compared to the right but is patent. Anterior cerebral, right middle cerebral and left posterior cerebral arteries without significant stenosis. Mild narrowing proximal right posterior cerebral artery Mild stenosis basilar artery. An aneurysm not noted. IMPRESSION: Most of the distal left internal carotid artery moderately narrowed. Short segment marked narrowing of the distal left internal carotid artery Conclusions/Impression: CKD III -No NSAIDs Hypertensive urgency HTN with CKD -Continue Losartan -Continue Amlodipine -Continue Clonidine TD BPH with LUTS -Continue Flomax PAD BL Critical Carotid Artery Stenosis -Follow up with vascular sx Hospitalist and ER notes reviewed Case discussed with Dr. Castro Thank you kindly for the consultation
[2025-03-20] MEDS: CLONIDINE 0.2 MG/PATCH TD SCH (11:10)
[2025-03-20 11:12] VITALS: BP 206/86
--- NOTE | 2025-03-20 15:42 | P.DS ---
Admission Date: 03/20/25 Discharge Date: 03/20/25 Disposition: TRANSFER TO [facility] Reason for Admission: High Blood Pressure Brief History of Present Illness: 84-year-old male with a past medical history of hypertension, arthritis, gastritis presenting with complaints of high blood pressure. 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 He states he was at a clinic in [place] where they were concerned he was having a stroke. They called the ambulance and brought him to the hospital for further evaluation. He states he has been having bloody stools for the last 2 to 3 days. He denies fevers but endorses chills. He denies any focal weakness, slurred speech. He has not been sick recently or had any changes in medication. He denies illicit drug use. Hospital Course: Physical Examination - Physical Exam General: In no apparent distress HEENT: Atraumatic Neck: Supple Respiratory: Clear to auscultation bilaterally Cardiovascular: No edema Capillary refill: <2 Seconds Gastrointestinal: Normal bowel sounds Musculoskeletal: No swelling Integumentary: No rashes Neurological: Normal speech - Studies Laboratory Data (last 24 hrs) 03/18/25 03/18/25 03/18/25 12:15 11:57 11:57 WBC 6.10 Hgb 13.6 Hct 39.5 L Plt Count 183 PT 13.1 H INR 1.16 Sodium Potassium BUN Creatinine Glucose Magnesium Total Bilirubin AST ALT Alkaline Phosphatase Lipase 25 03/18/25 11:57 WBC Hgb Hct Plt Count PT INR Sodium 138 Potassium 4.1 BUN 17 Creatinine 1.47 H Glucose 132 H Magnesium 2.3 Total Bilirubin 0.3 AST 17 ALT 23 Alkaline Phosphatase 157 H Lipase Assessment and Plan - Plan Hypertensive urgency Melena Sinus bradycardia Arthritis Gastritis 03/20 - Head and neck CTA revealing critical string stenosis of the left ICA and critical stenosis of the right ICA. Will transfer to [facility] per Dr. Morales recommendations - Consult nephrology to assist with blood pressure control and acute kidney injury - Continue telemetry for sinus bradycardia. Unable to use beta-darlyn due to low heart rate - Resume home blood pressure medication 03/19 - CT head with no evidence of acute stroke - Hemoglobin remained stable, he reports no episodes of GI bleeding - Add hydrochlorothiazide twice daily alongside spironolactone for uncontrolled blood pressures - Continue losartan, amlodipine - Hydralazine as needed for SBP greater than 170 - Cannot use beta-blockers due to heart rate being low - Obtain CTA head and neck and MRI of the brain Admit to floor Clear liquid diet for now He has a EGD report by Dr. 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 He has seen Dr. Long in the past. continue Protonix Continue allopurinol DVT prophylaxis with SCDs - Advance Directives Does patient have a Living Will: No Does patient have a Durable POA for Healthcare: No Vital Signs/Physical Exam: Temp Pulse Resp BP Pulse Ox 98.3 F 55 16 206/86 H 95 03/20/25 08:00 03/20/25 11:10 03/20/25 08:00 03/20/25 11:10 03/20/25 08:00 Laboratory Data at Discharge: WBC 7.00 thou/uL (4.3-10.9) 03/20/25 04:30 Hgb 13.9 g/dL (13.6-17.9) 03/20/25 04:30 Hct 41.0 % (39.6-49.0) 03/20/25 04:30 Plt Count 176 thou/uL (152-406) 03/20/25 04:30 PT 13.1 SECONDS (10-13.0) H 03/18/25 11:57 INR 1.16 03/18/25 11:57 Sodium 139 mEq/L (136-145) 03/20/25 04:30 Potassium 4.0 mEq/L (3.5-5.1) 03/20/25 04:30 BUN 11 mg/dL (7-18) 03/20/25 04:30 Creatinine 1.51 mg/dL (0.70-1.30) H 03/20/25 04:30 Glucose 93 mg/dL (74-106) 03/20/25 04:30 Magnesium 2.3 mg/dL (1.6-2.4) 03/18/25 11:57 Total Bilirubin 0.5 mg/dL (0.2-1.0) 03/20/25 04:30 AST 12 U/L (15-37) L 03/20/25 04:30 ALT 15 U/L (16-61) L 03/20/25 04:30 Alkaline Phosphatase 164 U/L (45-117) H 03/20/25 04:30 Lipase 25 U/L (13-75) 03/18/25 12:15 Home Medications: Clopidogrel Bisulfate [Plavix] 75 mg PO DAILY 06/06/16 Losartan Potassium 50 mg PO BID 06/06/16 Tamsulosin [Flomax*] 0.4 mg PO DAILY 06/06/16 allopurinoL [Allopurinol] 100 mg PO DAILY 06/06/16 Atorvastatin Calcium [Lipitor*] 20 mg PO BEDTIME #30 tab 06/07/16 Followup: NONE,NONE [Primary Care Provider] -
== END 2025-03-20 11:56 | disposition short-term general hospital (02) | DRG 68 ==
LOC: ER 11:43 → ERHOLD 16:21 → 2ND 17:26 → OBSVTOIN 03-20 10:46
PROVIDERS: ADMIT Family Medicine; ATTEND Family Medicine
DX: I65.23 Occlusion and stenosis of bilateral carotid arteries (principal); N17.9 Acute kidney failure, unspecified; K92.1 Melena; I16.0 Hypertensive urgency; M10.9 Gout, unspecified; K59.00 Constipation, unspecified; K29.70 Gastritis, unspecified, without bleeding; I73.9 Peripheral vascular disease, unspecified; M19.90 Unspecified osteoarthritis, unspecified site; N40.1 Benign prostatic hyperplasia with lower urinary tract symptoms; I12.9 Hypertensive chronic kidney disease with stage 1 through stage 4 chronic kidney disease, or unspecified chronic kidney disease; N18.30 Chronic kidney disease, stage 3 unspecified; K44.9 Diaphragmatic hernia without obstruction or gangrene; F17.200 Nicotine dependence, unspecified, uncomplicated; R00.1 Bradycardia, unspecified; Z85.46 Personal history of malignant neoplasm of prostate; Z79.02 Long term (current) use of antithrombotics/antiplatelets; Z79.899 Other long term (current) drug therapy
CPT/HCPCS: 36415; 70450; 70496; 70498; 71045; 80048; 80053; 80076; 81003; 82947; 83690; 83735; 83880; 84484; 85025; 85610; 86850; 86900; 86901; 93005; 96365; 96366; 99285; G0378; J0360; J2270; J2405; J2470; J7030; J7050; Q9967